=== PATIENT | female | born 1985 | race Caucasian/White ===

== ENCOUNTER 2018-11-05 09:39 | Emergency (ER) | payer SELFPAY ==
[2018-11-05 10:16] LABS: Urine Blood 2+ (NEG); Urine Glucose NEGATIVE (NEG); Urine Protein TRACE (NEG)
[2018-11-05 10:20] LABS: Absolute Monocytes 0.4 K/uL (0.1-1.3); Absolute Neutrophil 4.4 K/uL (1.8-8.0); Basophils % 0.7 % (0-1.3); Eosinophils % 1.8 % (0-4.4); Lymphocytes % 37.5 % (15.3-44.8); MPV 8.5 fL (7.6-11.3); Monocytes % 4.8 % (3.3-12.3)
[2018-11-05] MEDS ORDERED: MORPHINE 4 MG/ML SYR ONE (10:26)
[2018-11-05] MEDS ORDERED: ONDANSETRON 4 MG/2 ML VIAL ONE (10:27)
[2018-11-05 10:35] LABS: Albumin 3.6 g/dL (3.4-5.0); Bilirubin Direct 0.1 mg/dL (0-0.2); Bilirubin Total 0.4 mg/dL (0.2-1.0); Potassium 3.5 mmol/L (3.5-5.1); Protein, Total 8.1 g/dL (6.4-8.2)
[2018-11-05 10:38] LABS: Urine Bacteria <20 /HPF (<20); Urine Culture Reflex Order NOT NEEDED; Urine RBC >50 /HPF (NONE SEEN)
--- NOTE | 2018-11-05 12:34 | RAD REPORT ---
EXAM DESCRIPTION: CTAbdomen Pelvis W Contrast - 11/05/2018 12:24 pm CLINICAL HISTORY: Abdominal pain. ABD PAIN COMPARISON: No comparisons TECHNIQUE: Biphasic CT imaging of the abdomen and pelvis was performed with 100 ml non-ionic IV cont rast. All CT scans are performed using dose optimization technique as appropriate and may include automated exposure control or mA/KV adjustment according to patient size. FINDINGS: The lung bases are clear.Cholelithiasis. The liver demonstrates fatty infiltration. The spleen, pancreas, adrenal glands and kidneys are withi n normal limits. No bowel obstruction, free air, free fluid or abscess. The appendix is normal. No evidence of signi ficant lymphadenopathy. No suspicious bony findings. IMPRESSION: Cholelithiasis. Fatty liver.
--- NOTE | 2018-11-05 12:53 | ER ---
Nurse's Notes [facility] Name: Rosanne Riojas Age: 33 yrs Sex: Female : 1985 Arrival Date: 11/05/2018 Time: 09:42 Bed 7 Private MD: Diagnosis: Abdominal and pelvic pain Presentation: 11/05 09:49 Presenting complaint: Patient states: my stomach started hurting Wednesday, its all over hj my tummy that moves to the back down to my legs; Wednesday, i started having vaginal bleed like spotting and its progressive; reports nausea; denies fever and chills; pain is 10/10;. Transition of care: patient was not received from another setting of care. Onset of symptoms was November 05, 2018. Risk Assessment: Do you want to hurt yourself or someone else? Patient reports no desire to harm self or others. Initial Sepsis Screen: Does the patient meet any 2 criteria? Systolic BP < 90 mmHg. Yes Does the patient have a suspected source of infection? Yes:. Care prior to arrival: None. 09:49 Method Of Arrival: Ambulatory 09:49 Acuity: ILA 3 hj Triage Assessment: 09:52 General: Appears in no apparent distress. uncomfortable, Behavior is cooperative, hj appropriate for age, agitated, anxious. Pain: Complains of pain in back, buttocks, abdomen and pelvis. GI: Reports lower abdominal pain, upper abdominal pain, nausea. 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 - Social history:: Smoking status: Patient/guardian denies using tobacco, Patient/guardian denies using alcohol. - Ebola Screening: : Patient negative for fever greater than or equal to 101.5 degrees Fahrenheit, and additional compatible Ebola Virus Disease symptoms Patient denies exposure to infectious person Patient denies travel to an Ebola-affected area in the 21 days before illness onset. - Family history:: not pertinent. - Hospitalizations: : No recent hospitalization is reported. Screenin:53 Abuse screen: Denies threats or abuse. Denies injuries from another. Nutritional hj screening: No deficits noted. Tuberculosis screening: No symptoms or risk factors identified. Fall Risk None identified. Assessment: 09:54 GI: Bowel sounds present X 4 quads. Abd is soft. hj 10:00 General: Appears in no apparent distress. uncomfortable, Behavior is calm, cooperative, hj appropriate for age. Pain: Complains of pain in abdomen. Neuro: Level of Consciousness is awake, alert, obeys commands, Oriented to person, place, time, situation, Appropriate for age. Cardiovascular: Capillary refill < 3 seconds Patient's skin is warm and dry. Respiratory: Airway is patent Respiratory effort is even, unlabored, Respiratory pattern is regular, symmetrical. : No signs and/or symptoms were reported regarding the genitourinary system. EENT: No signs and/or symptoms were reported regarding the EENT system. Derm: No signs and/or symptoms reported regarding the dermatologic system. Musculoskeletal: No signs and/or symptoms reported regarding the musculoskeletal system. 11:00 Reassessment: Patient and/or family updated on plan of care and expected duration. Pain hj level reassessed. Patient is alert, oriented x 3, equal unlabored respirations, skin warm/dry/pink. Patient states feeling better. Patient states symptoms have improved. 12:00 Reassessment: Patient and/or family updated on plan of care and expected duration. Pain hj level reassessed. Patient is alert, oriented x 3, equal unlabored respirations, skin warm/dry/pink. Patient states feeling better. Patient states symptoms have improved. 13:13 Reassessment: Patient and/or family updated on plan of care and expected duration. Pain hj level reassessed. Patient is alert, oriented x 3, equal unlabored respirations, skin warm/dry/pink. D/C instructions given;. Vital Signs: 09:54 BP 155 / 115; Pulse 104; Resp 18; Temp 98.0(O); Pulse Ox 100% on R/A; Weight 72.57 kg; hj Height 5 ft. 2 in. (157.48 cm); Pain 10/10; 10:21 BP 129 / 65; Pulse 91; Resp 18; Temp 98.1(O); Pulse Ox 100% on R/A; hj 12:00 BP 130 / 71; Pulse 90; Resp 18; Pulse Ox 100% on R/A; hj 13:11 BP 128 / 70; Pulse 89; Resp 18; Pulse Ox 100% on R/A; hj 09:54 Body Mass Index 29.26 (72.57 kg, 157.48 cm) hj ED Course: 09:42 Patient arrived in ED. mr 09:45 Armin Mabry MD is Attending Physician. rn 09:49 Arvind Urbina RN is Primary Nurse. hj 09:51 Triage completed. hj 09:53 Arm band placed on right wrist. hj 09:55 Patient has correct armband on for positive identification. Placed in gown. Bed in low hj position. Call light in reach. Side rails up X 1. 10:05 Initial lab(s) drawn, by me, sent to lab. Inserted saline lock: 22 gauge in left hj antecubital area, using aseptic technique. Blood collected. 10:13 Basic Metabolic Panel Sent. hj 10:13 CBC with Diff Sent. hj 10:13 Hepatic Function Sent. hj 10:13 Lipase Sent. hj 10:13 Urine Microscopic Only Sent. hj 12:[address] mw3 12:23 CT completed. Patient tolerated procedure well. Patient moved back from CT. mw3 12:24 CT Abd/Pelvis - W/Contrast In Process Unspecified. EDMS 12:51 Martina Bello MD is Referral Physician. rn 13:13 No provider procedures requiring assistance completed. IV discontinued, intact, hj bleeding controlled, No redness/swelling at site. Pressure dressing applied. Administered Medications: 10:11 CANCELLED (Duplicate Order): Demerol 50 mg IVP once rn 10:20 Drug: morphine 4 mg Route: IVP; Site: left antecubital; hj 11:08 Follow up: Response: No adverse reaction; Pain is decreased hj 10:20 Drug: Zofran 4 mg Route: IVP; Site: left antecubital; hj 11:08 Follow up: Response: No adverse reaction; Nausea is decreased hj Outcome: 12:52 Discharge ordered by . rn 13:13 Discharged to home ambulatory. hj 13:13 Condition: stable 13:13 Discharge instructions given to patient, Instructed on discharge instructions, follow up and referral plans. medication usage, Demonstrated understanding of instructions, follow-up care, medications, Prescriptions given X 1. 13:13 Patient left the ED. vickie Signatures: Dispatcher [employer] Isela Cleaning Roman, MD MD rn Joaquin, Henry, RN RN hj Willis, Michelle mw3
--- NOTE | 2018-11-05 12:53 | EDPHYS ---
Physician Documentation [facility] Name: Rosanne Riojas Age: 33 yrs Sex: Female : 1985 Arrival Date: 11/05/2018 Time: 09:42 Bed 7 Private MD: ED Physician Armin Mabry HPI: 11/05 10:15 This 33 yrs old Female presents to ER via Ambulatory with complaints of rn Abdominal Pain, Back Pain. 10:16 The patient presents with abdominal pain. The patient presents with abdominal pain in rn the lower abdomen. Onset: The symptoms/episode began/occurred 5 day(s) ago. The symptoms radiate to The symptoms are described as crampy. Modifying factors: The symptoms are alleviated by nothing, the symptoms are aggravated by movement, touching the area. Severity of pain: At its worst the pain was moderate in the emergency department the pain is unchanged. The patient has experienced similar episodes in the past. The patient has not recently seen a physician. 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 - Social history:: Smoking status: Patient/guardian denies using tobacco, Patient/guardian denies using alcohol. - Ebola Screening: : Patient negative for fever greater than or equal to 101.5 degrees Fahrenheit, and additional compatible Ebola Virus Disease symptoms Patient denies exposure to infectious person Patient denies travel to an Ebola-affected area in the 21 days before illness onset. - Family history:: not pertinent. - Hospitalizations: : No recent hospitalization is reported. ROS: 10:16 Constitutional: Negative for fever, chills, and weight loss, Eyes: Negative for injury, rn pain, redness, and discharge, Neck: Negative for injury, pain, and swelling, Cardiovascular: Negative for chest pain, palpitations, and edema, Respiratory: Negative for shortness of breath, cough, wheezing, and pleuritic chest pain, Abdomen/GI: + lower abd pain, nausea, and back pain Back: + pain radiation to back MS/Extremity: Negative for injury and deformity, Skin: Negative for injury, rash, and discoloration, Neuro: Negative for headache, weakness, numbness, tingling, and seizure. 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 Eyes: Pupils equal round and reactive to light, extra-ocular motions intact. Lids and lashes normal. Conjunctiva and sclera are non-icteric and not injected. Cornea within normal limits. Periorbital areas with no swelling, redness, or edema. ENT: MMM Abdomen/GI: soft, bloated, + tender in bilateral lower quadrants and suprapubic region, no masses Skin: Warm, dry with normal turgor. Normal color with no rashes, no lesions, and no evidence of cellulitis. MS/ Extremity: Pulses equal, no cyanosis. Neurovascular intact. Full, normal range of motion. Equal circumference. Neuro: Awake and alert, GCS 15, oriented to person, place, time, and situation. Cranial nerves II-XII grossly intact. Motor strength 5/5 in all extremities. Sensory grossly intact. Cerebellar exam normal. Normal gait. Vital Signs: 09:54 BP 155 / 115; Pulse 104; Resp 18; Temp 98.0(O); Pulse Ox 100% on R/A; Weight 72.57 kg; hj Height 5 ft. 2 in. (157.48 cm); Pain 10/10; 10:21 BP 129 / 65; Pulse 91; Resp 18; Temp 98.1(O); Pulse Ox 100% on R/A; hj 12:00 BP 130 / 71; Pulse 90; Resp 18; Pulse Ox 100% on R/A; hj 13:11 BP 128 / 70; Pulse 89; Resp 18; Pulse Ox 100% on R/A; hj 09:54 Body Mass Index 29.26 (72.57 kg, 157.48 cm) MDM: 09:45 Patient medically screened. rn 12:48 Differential diagnosis: appendicitis, cholecystitis, Endometriosis, gastritis, rn gastroesophageal reflux disease, non-specific abd pain, pancreatitis, Ureterolithiasis, urinary tract infection. Data reviewed: vital signs, nurses notes, lab test result(s), radiologic studies, CT scan, and as a result, I will discharge patient. Counseling: I had a detailed discussion with the patient and/or guardian regarding: the historical points, exam findings, and any diagnostic results supporting the discharge/admit diagnosis, lab results, radiology results, the need for outpatient follow up, to return to the emergency department if symptoms worsen or persist or if there are any questions or concerns that arise at home. Response to treatment: the patient's symptoms have mildly improved after treatment, and as a result, I will discharge patient. Special discussion: Based on the patient's Hx, exam, and Dx evaluation, there is no indication for emergent surgery or inpatient Tx. It is understood by the patient/guardian that if the Sx's persist or worsen they need to return immediately for re-evaluation. I discussed with the patient/guardian in detail that at this point there is no indication for admission to the hospital. It is understood, however, that if the symptoms persist or worsen the patient needs to return immediately for re-evaluation. Based on the history and exam findings, there is no indication for further emergent testing or inpatient evaluation. I discussed with the patient/guardian the need to see the OB Gyne specialist for further evaluation of the symptoms. 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 . 11/05 09:53 Order name: Basic Metabolic Panel; Complete Time: 10:48 rn 11/05 09:53 Order name: CBC with Diff; Complete Time: 10:48 rn 11/05 09:53 Order name: Hepatic Function; Complete Time: 10:48 rn 11/05 09:53 Order name: Lipase; Complete Time: 10:48 rn 11/05 09:53 Order name: Urine Microscopic Only; Complete Time: 10: rn 11/05 10:13 Order name: Urine Dipstick--Ancillary (enter results); Complete Time: 10:48 eb 11/05 09:53 Order name: IV Saline Lock; Complete Time: 10:12 rn 11/05 09:53 Order name: Labs collected and sent; Complete Time: 10:12 rn 11/05 09:53 Order name: Urine Test (obtain specimen); Complete Time: 10:12 rn 11/05 10:11 Order name: CT Abd/Pelvis - W/Contrast; Complete Time: 12:40 rn 11/05 10:13 Order name: Urine --Ancillary (enter results); Complete Time: 10:48 eb 11/05 09:53 Order name: Urine Dipstick-Ancillary (obtain specimen); Complete Time: 10:12 rn Administered Medications: 10:11 CANCELLED (Duplicate Order): Demerol 50 mg IVP once rn 10:20 Drug: morphine 4 mg Route: IVP; Site: left antecubital; hj 11:08 Follow up: Response: No adverse reaction; Pain is decreased hj 10:20 Drug: Zofran 4 mg Route: IVP; Site: left antecubital; hj 11:08 Follow up: Response: No adverse reaction; Nausea is decreased hj Disposition: 11/05/18 12:52 Discharged to Home. Impression: Abdominal and pelvic pain. - Condition is Stable. - Discharge Instructions: Pelvic Pain, Female. - Prescriptions for Diclofenac Sodium 75 mg Oral Tablet Sustained Release - take 1 tablet by ORAL route 2 times per day; 30 tablet. - Medication Reconciliation Form, Thank You Letter, Antibiotic Education, Prescription Opioid Use form. - Follow up: Martina Bello MD; When: As needed; Reason: Recheck today's complaints, Re-evaluation by your physician. - Problem is new. - Symptoms have improved. Signatures: Dispatcher [employer] EDMS Armin Mabry MD MD rn Joaquin, Henry, RN RN Corrections: (The following items were deleted from the chart) 10:11 10:11 Demerol 50 mg IVP once ordered. rn rn 13:13 12:52 11/05/2018 12:52 Discharged to Home. Impression: Abdominal and pelvic pain. hj Condition is Stable. Forms are Medication Reconciliation Form, Thank You Letter, Antibiotic Education, Prescription Opioid Use. Follow up: Martina Bello; When: As needed; Reason: Recheck today's complaints, Re-evaluation by your physician. Problem is new. Symptoms have improved. rn
== END 2018-11-05 13:13 | disposition home or self-care (01) ==
LOC: ER 09:39
DX: R10.2 Pelvic and perineal pain (principal); Z88.0 Allergy status to penicillin; Z88.8 Allergy status to other drugs, medicaments and biological substances; Z91.040 Latex allergy status; Z91.048 Other nonmedicinal substance allergy status
CPT/HCPCS: 36415; 74177; 80048; 80076; 81003; 81015; 81025; 83690; 85025; 96374; 96375; 99284; J2405; Q9967

== ENCOUNTER 2019-09-30 16:48 | Emergency (ER) | payer SELFPAY ==
--- NOTE | 2019-09-30 19:58 | RAD REPORT ---
EXAM DESCRIPTION: US - Abdomen Exam Limited - 09/30/2019 7:45 pm CLINICAL HISTORY: ABD pain COMPARISON: Abdomen Pelvis W Contrast dated 11/05/2018 FINDINGS: A large 2 centimeter gallstone is present in the fundus of the gallbladder. This matches t he CT study. No additional stones or sludge identifiable. There is no wall thickening or pericholecys tic fluid. No common duct stone or biliary tree dilatation identified. IMPRESSION: Large stone in the fundus of the gallbladder. This is a known finding. No acute gallbladder or biliary tree finding.
[2019-09-30 20:17] LABS: Absolute Lymphocytes (CBC) 2.1 K/uL (0.7-4.9); Basophils % 0.4 % (0-1.3); Lymphocytes % 16.7 % (15.3-44.8); MPV 8.3 fL (7.6-11.3); RBC Red Blood Cell Count 4.79 M/uL (3.86-4.86)
[2019-09-30 20:35] LABS: Albumin 3.4 g/dL (3.4-5.0); Bilirubin Direct 0.1 mg/dL (0-0.2); Bilirubin Total 0.3 mg/dL (0.2-1.0); Potassium 3.9 mmol/L (3.5-5.1); Protein, Total 8.3 g/dL (6.4-8.2); Urine Blood NEGATIVE (NEG); Urine Glucose NEGATIVE (NEG); Urine Protein NEGATIVE (NEG); Urine Specific Gravity 1.025 (1.005-1.030); Urine pH 5.5 (5.0-7.0)
--- NOTE | 2019-09-30 20:48 | ER ---
Nurse's Notes [facility] Name: Rosanne Riojas Age: 34 yrs Sex: Female : 1985 Arrival Date: 09/30/2019 Time: 16:52 Bed 23 Private MD: Diagnosis: Abdominal tenderness;Vomiting;Diarrhea, unspecified;Cholelithiasis;Dental caries Presentation: 09/30 17:17 Presenting complaint: Patient states: RUQ abdominal pain, nausea, vomiting, headache, aj1 diarrhea, chills that started today. States that she was diagnosed with "gallbladder disease" in 2006. Denies fever. Transition of care: patient was not received from another setting of care. Onset of symptoms was September 2019. Risk Assessment: Do you want to hurt yourself or someone else? Patient reports no desire to harm self or others. Initial Sepsis Screen: Does the patient meet any 2 criteria? No. Patient's initial sepsis screen is negative. Does the patient have a suspected source of infection? No. Patient's initial sepsis screen is negative. Care prior to arrival: None. 17:17 Method Of Arrival: Ambulatory aj1 17:17 Acuity: ILA 3 aj1 Triage Assessment: 17:20 General: Appears in no apparent distress. comfortable, Behavior is calm, cooperative, aj1 appropriate for age. Pain: Complains of pain in right upper quadrant. Neuro: Level of Consciousness is awake, alert, obeys commands. Cardiovascular: Patient's skin is warm and dry. Respiratory: Airway is patent Respiratory effort is even, unlabored, Respiratory pattern is regular, symmetrical. GI: Reports upper abdominal pain. 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 - Coronavirus screen:: The patient has NOT traveled to [place] in the past 14 days. - Social history:: Smoking status: Patient reports the use of cigarette tobacco products, smokes one-half pack cigarettes per day. - Family history:: not pertinent. - Ebola Screening: : Patient denies travel to an Ebola-affected area in the 21 days before illness onset. Screenin:00 Abuse screen: Denies threats or abuse. Nutritional screening: No deficits noted. vc Tuberculosis screening: No symptoms or risk factors identified. Fall Risk None identified. Assessment: 19:00 General: Appears in no apparent distress. uncomfortable, Behavior is calm, cooperative, vc appropriate for age. Pain: Denies pain. Pain: Complains of pain in abdomen and right upper quadrant. Neuro: Level of Consciousness is awake, alert, obeys commands, Oriented to person, place, time, situation. Cardiovascular: Capillary refill Patient's skin is warm and dry. Respiratory: Respiratory effort is even, unlabored, Respiratory pattern is regular, symmetrical. GI: Abdomen is round Bowel sounds present X 4 quads. : No signs and/or symptoms were reported regarding the genitourinary system. EENT: No signs and/or symptoms were reported regarding the EENT system. Derm: Skin is intact. Musculoskeletal: Circulation, motion, and sensation intact. Range of motion: intact in all extremities. 20:00 Reassessment: Patient and/or family updated on plan of care and expected duration. Pain vc level reassessed. Patient is alert, oriented x 3, equal unlabored respirations, skin warm/dry/pink. 21:00 Reassessment: Patient and/or family updated on plan of care and expected duration. Pain vc level reassessed. Patient is alert, oriented x 3, equal unlabored respirations, skin warm/dry/pink. Patient states feeling better. Vital Signs: 17:20 BP 147 / 90; Pulse 102; Resp 20; Temp 97.6; Pulse Ox 100% on R/A; Height 5 ft. 2 in. aj1 (157.48 cm); Pain 5/10; 19:00 BP 148 / 88; Pulse 100; Resp 20; Pulse Ox 100% on R/A; vc 20:00 BP 153 / 85; Pulse 95; Resp 18; Pulse Ox 100% on R/A; vc 21:00 BP 145 / 86; Pulse 95; Resp 18; Pulse Ox 100% on R/A; vc ED Course: 16:52 Patient arrived in ED. as 17:20 Triage completed. aj1 17:20 Arm band placed on Patient placed in waiting room, Patient notified of wait time. aj1 19:05 Rah Ervin MD is Attending Physician. gregory 19:42 Elba Ponce, RN is Primary Nurse. vc 19:44 Ultrasound completed. Patient tolerated well. Notified ED Physician . sg3 20:47 Gualberto Bosch MD is Referral Physician. gregory 21:10 Patient has correct armband on for positive identification. Bed in low position. Call vc light in reach. 21:10 No provider procedures requiring assistance completed. IV discontinued, intact, vc bleeding controlled, No redness/swelling at site. Pressure dressing applied. Administered Medications: 21:10 Drug: Zofran 4 mg Route: IVP; Site: right antecubital; vc 21:10 Follow up: Response: No adverse reaction vc 21:10 Drug: TORadol 30 mg Route: IVP; Site: right antecubital; vc 21:10 Follow up: Response: Medication administered at discharge. vc 10/01 00:25 Not Given (Patient Refused): NS 0.9% 1000 ml IV at 1 bolus Per protocol; 1000 mL bolus vc 00:25 Not Given (Other Intervention Used): morphine 4 mg IVP once; RASS on ADMIN: Combtv4, vc Very Agttd3, Agttd2, Rstlss1, AlertClm0, Drwsy-1, Lt Sdtn-2, Mod Sdtn-3, Dp Sdtn-4, UnArsble-5 Outcome: 09/30 20:47 Discharge ordered by . gregory 21:15 Patient left the ED. vc 21:15 Discharged to home ambulatory, with significant other. vc 21:15 Condition: good 21:15 Discharge instructions given to patient, significant other, Instructed on discharge instructions, follow up and referral plans. medication usage, Demonstrated understanding of instructions, follow-up care, medications, Prescriptions given X 3. Signatures: Sophia Araya, JUAN RN aj1 Rah Ervin MD MD cha Martinez, Amelia as Godinez, Sarah sg3 Roya Santoyo lt1 Elba Ponce, RN RN vc Corrections: (The following items were deleted from the chart) 10/01 01:03 02 21:34 Patient left the ED. lt1 vc
--- NOTE | 2019-09-30 20:48 | EDPHYS ---
Physician Documentation [facility] Name: Rosanne Riojas Age: 34 yrs Sex: Female : 1985 Arrival Date: 09/30/2019 Time: 16:52 Bed 23 Private MD: ED Physician Rah Ervin HPI: 09/30 19:45 This 34 yrs old Female presents to ER via Ambulatory with complaints of gregory Nausea/Vomiting/Diarrhea. 19:45 The patient presents to the emergency department with nausea, vomiting, abdominal pain, gregory of the right upper quadrant. Onset: The symptoms/episode began/occurred 1 day(s) ago. Possible causes: gallbladder disease. The symptoms are aggravated by food , The symptoms are alleviated by nothing. Associated signs and symptoms: The patient has no apparent associated signs or symptoms. Severity of symptoms: At their worst the symptoms were mild moderate in the emergency department the symptoms are unchanged. The patient has experienced similar episodes in the past. RADIO RIGGER: 17:20 LMP N/A - Irregular menses aj1 Historical: - Allergies: 17:20 Latex, Natural Rubber; aj1 17:20 Macrobid; aj1 17:20 meperidine HCl; aj1 17:20 PENICILLINS; aj1 - Home Meds: 17:20 None [Active]; aj1 - PMHx: 17:20 "gallbladder disease"; aj1 - Immunization history:: Flu vaccine is not up to date. - Coronavirus screen:: The patient has NOT traveled to [place] in the past 14 days. - Social history:: Smoking status: Patient reports the use of cigarette tobacco products, smokes one-half pack cigarettes per day. - Family history:: not pertinent. - Ebola Screening: : Patient denies travel to an Ebola-affected area in the 21 days before illness onset. ROS: 19:45 Constitutional: Negative for fever, chills, and weight loss, Eyes: Negative for injury, gregory pain, redness, and discharge, ENT: Negative for injury, pain, and discharge, Neck: Negative for injury, pain, and swelling, Cardiovascular: Negative for chest pain, palpitations, and edema, Respiratory: Negative for shortness of breath, cough, wheezing, and pleuritic chest pain, Back: Negative for injury and pain, : Negative for injury, bleeding, discharge, and swelling, MS/Extremity: Negative for injury and deformity, Skin: Negative for injury, rash, and discoloration, Neuro: Negative for headache, weakness, numbness, tingling, and seizure, Psych: Negative for depression, anxiety, suicide ideation, homicidal ideation, and hallucinations, Allergy/Immunology: Negative for hives, rash, and allergies, Endocrine: Negative for neck swelling, polydipsia, polyuria, polyphagia, and marked weight changes, Hematologic/Lymphatic: Negative for swollen nodes, abnormal bleeding, and unusual bruising. 19:45 Abdomen/GI: Positive for abdominal pain, nausea and vomiting, diarrhea, of the right upper quadrant. Exam: 19:45 Constitutional: This is a well developed, well nourished patient who is awake, alert, gregory and in no acute distress. Head/Face: Normocephalic, atraumatic. Eyes: Pupils equal round and reactive to light, extra-ocular motions intact. Lids and lashes normal. Conjunctiva and sclera are non-icteric and not injected. Cornea within normal limits. Periorbital areas with no swelling, redness, or edema. ENT: Nares patent. No nasal discharge, no septal abnormalities noted. Tympanic membranes are normal and external auditory canals are clear. Oropharynx with no redness, swelling, or masses, exudates, or evidence of obstruction, uvula midline. Mucous membranes moist. Neck: Trachea midline, no thyromegaly or masses palpated, and no cervical lymphadenopathy. Supple, full range of motion without nuchal rigidity, or vertebral point tenderness. No Meningismus. Chest/axilla: Normal chest wall appearance and motion. Nontender with no deformity. No lesions are appreciated. Cardiovascular: Regular rate and rhythm with a normal S1 and S2. No gallops, murmurs, or rubs. Normal PMI, no JVD. No pulse deficits. Respiratory: Lungs have equal breath sounds bilaterally, clear to auscultation and percussion. No rales, rhonchi or wheezes noted. No increased work of breathing, no retractions or nasal flaring. Back: No spinal tenderness. No costovertebral tenderness. Full range of motion. Skin: Warm, dry with normal turgor. Normal color with no rashes, no lesions, and no evidence of cellulitis. MS/ Extremity: Pulses equal, no cyanosis. Neurovascular intact. Full, normal range of motion. Neuro: Awake and alert, GCS 15, oriented to person, place, time, and situation. Cranial nerves II-XII grossly intact. Motor strength 5/5 in all extremities. Sensory grossly intact. Cerebellar exam normal. Normal gait. Psych: Awake, alert, with orientation to person, place and time. Behavior, mood, and affect are within normal limits. 19:45 Abdomen/GI: Inspection: distension, Bowel sounds: normal, Palpation: mild abdominal tenderness, in the right upper quadrant. Vital Signs: 17:20 BP 147 / 90; Pulse 102; Resp 20; Temp 97.6; Pulse Ox 100% on R/A; Height 5 ft. 2 in. aj1 (157.48 cm); Pain 5/10; 19:00 BP 148 / 88; Pulse 100; Resp 20; Pulse Ox 100% on R/A; vc 20:00 BP 153 / 85; Pulse 95; Resp 18; Pulse Ox 100% on R/A; vc 21:00 BP 145 / 86; Pulse 95; Resp 18; Pulse Ox 100% on R/A; vc MDM: 19:05 Patient medically screened. [facility] 19:47 Data reviewed: vital signs, nurses notes, lab test result(s), radiologic studies, [facility] ultrasound. 09/30 17:31 Order name: Urine Culture [facility] 09/30 17:31 Order name: Urine Microscopic Only [facility] 09/30 19:44 Order name: Basic Metabolic Panel [facility] 09/30 19:44 Order name: CBC with Diff [facility] 09/30 19:44 Order name: Creatinine for Radiology [facility] 09/30 19:44 Order name: Hepatic Function [facility] 09/30 19:44 Order name: Lipase [facility] 09/30 20:02 Order name: Urine Dipstick--Ancillary (enter results) 09/30 20:02 Order name: Test Urine - POC 09/30 20:22 Order name: CBC with Automated Diff; Complete Time: 20:42 EDCT 09/30 20:41 Order name: Basic Metabolic Panel; Complete Time: 20:42 EDCT 09/30 20:41 Order name: Liver (Hepatic) Function; Complete Time: 20:42 EDCT 09/30 20:41 Order name: Lipase; Complete Time: 20:42 EDCT 09/30 20:41 Order name: Creatinine (Radiology Only); Complete Time: 20:42 EDCT 09/30 17:31 Order name: Urine Test (obtain specimen); Complete Time: 01:12 [facility] 09/30 17:31 Order name: Urine Dipstick-Ancillary (obtain specimen); Complete Time: 01:12 [facility] 09/30 17:59 Order name: US Abdomen Limited [facility] 09/30 19:44 Order name: IV Saline Lock; Complete Time: 01:11 [facility] 09/30 19:44 Order name: Labs collected and sent; Complete Time: 01:11 [facility] 09/30 20:41 Order name: Urine --Ancillary; Complete Time: 20:42 [facility] 09/30 20:41 Order name: Urine Dipstick-Ancillary; Complete Time: 20:42 [facility] 09/30 21:12 Order name: EDCT Administered Medications: 21:10 Drug: Zofran 4 mg Route: IVP; Site: right antecubital; vc 21:10 Follow up: Response: No adverse reaction vc 21:10 Drug: TORadol 30 mg Route: IVP; Site: right antecubital; vc 21:10 Follow up: Response: Medication administered at discharge. vc 10/01 00:25 Not Given (Patient Refused): NS 0.9% 1000 ml IV at 1 bolus Per protocol; 1000 mL bolus vc 00:25 Not Given (Other Intervention Used): morphine 4 mg IVP once; RASS on ADMIN: Combtv4, vc Very Agttd3, Agttd2, Rstlss1, AlertClm0, Drwsy-1, Lt Sdtn-2, Mod Sdtn-3, Dp Sdtn-4, UnArsble-5 Disposition: 09/30/19 20:47 Discharged to Home. Impression: Abdominal tenderness, Vomiting, Diarrhea, unspecified, Cholelithiasis, Dental caries. - Condition is Stable. - Discharge Instructions: Abdominal Pain, Adult, Food Choices to Help Relieve Diarrhea, Adult, Dental Caries, Adult, Diarrhea, Adult, Cholelithiasis, Cholelithiasis, Xqgc-gd-Tmuf, Nausea and Vomiting, Adult, Ecmo-ic-Xbge, Abdominal Pain, Adult, Dgag-ea-Urds, Diarrhea, Adult, Yhaw-xk-Olxh, Dental Caries, Tuxe-eb-Fpxl. - Prescriptions for Bentyl 20 mg Oral Tablet - take 1 tablet by ORAL route every 6 hours As needed; 20 tablet. Pepcid 20 mg Oral Tablet - take 1 tablet by ORAL route every 12 hours for 10 days; 20 tablet. Keflex 500 mg Oral Capsule - take 1 capsule by ORAL route every 6 hours for 10 days; 28 capsule. - Medication Reconciliation Form, Thank You Letter, Antibiotic Education, Prescription Opioid Use form. - Follow up: Private Physician; When: 2 - 3 days; Reason: Recheck today's complaints, Continuance of care, Re-evaluation by your physician. Follow up: Dr. Gualberto Bosch; When: 2 - 3 days; Reason: Recheck today's complaints, Continuance of care, Re-evaluation by your physician. - Problem is new. - Symptoms have improved. Signatures: Dispatcher [employer] EDSophia De Santiago RN RN aj1 Rah Ervin MD MD cha Therrien, Shelly, VENDING MACHINE SERVICER-C VENDING MACHINE SERVICER-Csnw Roya Santoyo lt1 Elba Ponce RN RN vc Corrections: (The following items were deleted from the chart) 09/30 21:34 20:47 09/30/2019 20:47 Discharged to Home. Impression: Abdominal tenderness; Vomiting; lt1 Diarrhea, unspecified; Cholelithiasis; Dental caries. Condition is Stable. Discharge Instructions: Abdominal Pain, Adult, Food Choices to Help Relieve Diarrhea, Adult, Diarrhea, Adult, Cholelithiasis, Cholelithiasis, Fgdf-vj-Dhmo, Nausea and Vomiting, Adult, Yyom-hs-Bnof, Abdominal Pain, Adult, Lfhj-dy-Wkgs, Diarrhea, Adult, Xgev-bc-Okvz. Prescriptions for Bentyl 20 mg Oral Tablet - take 1 tablet by ORAL route every 6 hours As needed; 20 tablet, Pepcid 20 mg Oral Tablet - take 1 tablet by ORAL route every 12 hours for 10 days; 20 tablet. and Forms are Medication Reconciliation Form, Thank You Letter, Antibiotic Education, Prescription Opioid Use. Follow up: Private Physician; When: 2 - 3 days; Reason: Recheck today's complaints, Continuance of care, Re-evaluation by your physician. Follow up: Dr. Gualberto Bosch; When: 2 - 3 days; Reason: Recheck today's complaints, Continuance of care, Re-evaluation by your physician. Problem is new. Symptoms have improved. gregory
[2019-09-30] MEDS ORDERED: ONDANSETRON 4 MG/2 ML VIAL ONE (21:13)
[2019-09-30] MEDS ORDERED: KETOROLAC 30 MG/ML INJ ONE (21:13)
[2019-09-30 21:58] VITALS: BP 147/90; TEMP 97.6; O2SAT 100
--- NOTE | 2019-10-02 08:55 | EKG ---
Test Date: 2019-09-30 Test Time: 20:48:02 Frit Coater: NIRUT MEASUREMENT RESULTS: Intervals: Rate: 60 FL: 110 QRSD: 64 QT: 486 QTc: 486 [place]: P: 59 FL: 110 QRS: 61 T: 57 INTERPRETIVE STATEMENTS: Sinus rhythm with short FL Prolonged QT Abnormal ECG No previous ECG available for comparison Electronically Signed On 10-02-19 08:55:09 FABRIC MACHINE OPERATOR by Koko Mcleod
== END 2019-09-30 21:34 | disposition home or self-care (01) ==
LOC: ER 16:48
DX: R19.7 Diarrhea, unspecified (principal); K80.20 Calculus of gallbladder without cholecystitis without obstruction; K02.9 Dental caries, unspecified; R10.819 Abdominal tenderness, unspecified site; Z88.0 Allergy status to penicillin; Z91.040 Latex allergy status; Z88.1 Allergy status to other antibiotic agents; F17.210 Nicotine dependence, cigarettes, uncomplicated
CPT/HCPCS: 36415; 76705; 80048; 80076; 81003; 81025; 83690; 85025; 93005; 96374; 96375; 99283; J2405

== ENCOUNTER 2021-03-21 08:07 | Emergency (ER) | payer SELFPAY ==
--- NOTE | 2021-03-21 09:58 | RAD REPORT ---
EXAM DESCRIPTION: US - Abdomen Exam Limited - 03/21/2021 9:36 am CLINICAL HISTORY: RUQ pain COMPARISON: Abdomen Exam Limited dated 09/30/2019 FINDINGS: The gallbladder demonstrates a prominent shadowing gallstone. No pericholecystic fluid or gallbladder wall thickening. The common bile duct is normal measuring 3 mm. The liver demonstrates no findings of intrahepatic biliary dilatation. IMPRESSION: Cholelithiasis.
[2021-03-21 10:32] LABS: Absolute Lymphocytes (CBC) 2.2 K/uL (0.7-4.9); Basophils % 0.6 % (0-1.3); Hematocrit 33.1 % (36.0-45.0); Lymphocytes % 23.7 % (15.3-44.8); MPV 7.7 fL (7.6-11.3); RBC Red Blood Cell Count 4.21 M/uL (3.86-4.86)
[2021-03-21 10:40] LABS: ALT/SGPT 35 U/L (12-78); AST/SGOT 19 U/L (15-37); Albumin 3.4 g/dL (3.4-5.0); Alkaline Phosphatase 125 U/L (45-117); BUN Blood Urea Nitrogen 9 mg/dL (7-18); Bicarbonate 29 mmol/L (21-32); Bilirubin Direct < 0.1 mg/dL (0-0.2); Bilirubin Total 0.2 mg/dL (0.2-1.0); Glucose Level 101 mg/dL (74-106); Lipase 147 U/L (73-393); Potassium 3.9 mmol/L (3.5-5.1); Protein, Total 7.6 g/dL (6.4-8.2); Sodium Level 140 mmol/L (136-145)
[2021-03-21] MEDS ORDERED: ONDANSETRON 4 MG/2 ML VIAL ONE (12:10)
[2021-03-21] MEDS ORDERED: MORPHINE 2 MG/ML SYR ONE (12:10)
--- NOTE | 2021-03-21 12:29 | EDPHYS ---
Physician Documentation [facility] Name: Rosanne Riojas Age: 35 yrs Sex: Female : 1985 Arrival Date: 03/21/2021 Time: 08:12 Bed 30 Private MD: ED Physician Juanpablo Henriquez HPI: 03/21 10:07 This 35 yrs old Female presents to ER via Ambulatory with complaints of pm1 Abdominal Pain. 10:07 The patient presents with abdominal pain in the epigastric area. Onset: The pm1 symptoms/episode began/occurred this morning. The symptoms do not radiate. Associated signs and symptoms: Pertinent positives: nausea, Pertinent negatives: chest pain, diarrhea, shortness of breath, vomiting. The symptoms are described as achy. Modifying factors: The symptoms are alleviated by nothing, the symptoms are aggravated by nothing. Severity of pain: in the emergency department the pain is unchanged. The patient has experienced similar episodes in the past, a few times, today's symptoms are similar, to previous gallbladder issues. The patient has not recently seen a physician. Patient consumed chicken quesadillas last night. Historical: - Allergies: 08:58 Latex, Natural Rubber; ss 08:58 Macrobid; ss 08:58 meperidine HCl; ss 08:58 PENICILLINS; ss - Home Meds: 08:58 None [Active]; ss - PMHx: 08:58 "gallbladder disease"; "form of autism"; Gastric reflux; ss - PSHx: 08:58 section; ss - Immunization history:: Adult Immunizations unknown, Client reports having NOT received the Covid vaccine. - Social history:: Smoking status: Patient reports the use of cigarette tobacco products, smokes one pack cigarettes per day. ROS: 10:07 Constitutional: Negative for fever, chills, and weight loss, Cardiovascular: Negative pm1 for chest pain, palpitations, and edema, Respiratory: Negative for shortness of breath, cough, wheezing, and pleuritic chest pain. 10:07 Back: Negative for injury and pain, MS/Extremity: Negative for injury and deformity, Skin: Negative for injury, rash, and discoloration, Neuro: Negative for headache, weakness, numbness, tingling, and seizure. 10:07 Abdomen/GI: Positive for abdominal pain, nausea, of the right upper quadrant, Negative for vomiting, diarrhea, constipation. 10:07 All other systems are negative. Exam: 10:07 Constitutional: This is a well developed, well nourished patient who is awake, alert, pm1 and in no acute distress. Head/Face: Normocephalic, atraumatic. 10:07 Back: No spinal tenderness. No costovertebral tenderness. Full range of motion. Skin: Warm, dry with normal turgor. Normal color with no rashes, no lesions, and no evidence of cellulitis. MS/ Extremity: Pulses equal, no cyanosis. Neurovascular intact. Full, normal range of motion. 10:07 Cardiovascular: Exam negative for acute changes, Rate: normal, Rhythm: regular, Pulses: no pulse deficits are appreciated. 10:07 Respiratory: Exam negative for acute changes, respiratory distress, shortness of breath. 10:07 Abdomen/GI: Inspection: abdomen appears normal, Palpation: soft, in all quadrants, mild abdominal tenderness, in the right upper quadrant. 10:07 Neuro: Exam negative for acute changes, Orientation: is normal, Mentation: is normal, Motor: is normal, moves all fours. Vital Signs: 08:58 BP 136 / 95; Pulse 87; Resp 16; Temp 97.4(TE); Pulse Ox 98% on R/A; Weight 72.12 kg; ss Height 5 ft. 2 in. (157.48 cm); Pain 7/10; 10:13 BP 152 / 88; Pulse 78; Resp 16; Temp 97.4(T); Pulse Ox 100% on R/A; Pain 5/10; lm7 08:58 Body Mass Index 29.08 (72.12 kg, 157.48 cm) ss MDM: 10:07 Patient medically screened. pm1 10:07 ED course: Patient requested a smaller dose of pain medication due to apprehension of pm1 narcotics. Therefore we will give the patient 2 mg morphine with Zofran. 10:49 Data reviewed: vital signs. Data interpreted: Pulse oximetry: on room air is 100 %. pm1 Interpretation: normal. 11:50 Counseling: I had a detailed discussion with the patient and/or guardian regarding: the pm1 historical points, exam findings, and any diagnostic results supporting the discharge/admit diagnosis, lab results, radiology results, the need for outpatient follow up, a general surgeon, Patient reports that she used to be on a low-fat diet. Last night patient ate chicken quesadillas for dinner prior to onset of epigastric pain. 12:16 ED course: Patient informed the nurse that she will not provide us a urine sample. pm1 03/21 09:12 Order name: Basic Metabolic Panel; Complete Time: 10:49 pm1 03/21 09:12 Order name: CBC with Diff; Complete Time: 10:49 pm1 03/21 09:12 Order name: Hepatic Function; Complete Time: 10:49 pm1 03/21 09:12 Order name: Lipase; Complete Time: 10:49 pm1 03/21 09:12 Order name: US Abdomen Limited; Complete Time: 10:01 pm1 03/21 09:12 Order name: IV Saline Lock; Complete Time: 10:18 pm1 03/21 09:12 Order name: Labs collected and sent; Complete Time: 10:18 pm1 03/21 09:12 Order name: NPO; Complete Time: 10:03 pm1 Administered Medications: 11:50 Drug: Zofran (Ondansetron) 4 mg Route: IVP; Site: right antecubital; ss 11:50 Drug: morphine 2 mg Route: IVP; Site: right antecubital; ss Disposition Summary: 03/21/21 12:28 Discharge Ordered Location: Home pm1 Problem: new pm1 Symptoms: have improved pm1 Condition: Stable pm1 Diagnosis - Cholelithiasis pm1 Followup: pm1 - With: Emergency Department - When: As needed - Reason: Worsening of condition Followup: pm1 - With: Private Physician - When: 2 - 3 days - Reason: Recheck today's complaints, Continuance of care, Re-evaluation by your physician Discharge Instructions: - Discharge Summary Sheet pm1 - Cholelithiasis pm1 Forms: - Work release form ss - Medication Reconciliation Form pm1 - Thank You Letter pm1 - Antibiotic Education pm1 - Prescription Opioid Use pm1 Prescriptions: - ondansetron 4 mg Oral tablet,disintegrating - take 1 tablet by ORAL route every 8 hours As needed; 12 tablet; Refills: 0, pm1 Product Selection Permitted - dicyclomine 20 mg Oral Tablet - take 1 tablet by ORAL route every 6 hours As needed; 20 tablet; Refills: 0, pm1 Product Selection Permitted Addendum: 03/24/2021 07:06 Co-signature as Attending Physician, Juanpablo Henriquez MD I agree with the assessment and k dr plan of care. Signatures: Dispatcher [employer] Juanpablo Irvin MD MD [facility] Namrata Banegas, JUAN RN ss John Sanchez, NICOLE ENTERPRISE INTEGRATION ARCHITECT pm1
--- NOTE | 2021-03-21 12:29 | ER ---
Nurse's Notes [facility] Name: Rosanne Riojas Age: 35 yrs Sex: Female : 1985 Arrival Date: 03/21/2021 Time: 08:12 Bed 30 Private MD: Diagnosis: Cholelithiasis Presentation: 03/21 08:57 Chief complaint: Patient states: RUQ pain that began at 0400 this morning. HX of gall ss bladder disease. Coronavirus screen: Client denies travel out of the [place] in the last 14 days. Ebola Screen: Patient denies exposure to infectious person. Patient denies travel to an Ebola-affected area in the 21 days before illness onset. Initial Sepsis Screen: Does the patient meet any 2 criteria? No. Patient's initial sepsis screen is negative. Does the patient have a suspected source of infection? No. Patient's initial sepsis screen is negative. Risk Assessment: Do you want to hurt yourself or someone else? Patient reports no desire to harm self or others. Onset of symptoms was March 21, 2021. 08:57 Method Of Arrival: Ambulatory 08:57 Acuity: ILA 3 ss Triage Assessment: 10:08 General: Appears uncomfortable, Behavior is cooperative. Pain: Complains of pain in lm7 RUQ, beneath R rib Pain radiates to back Pain currently is 5 out of 10 on a pain scale. at worst was 10 out of 10 on a pain scale. Quality of pain is described as aching, crampy, Pain began suddenly, today at 0400. GI: Abdomen is round obese, Reports upper abdominal pain, nausea, vomiting, reports able to tolerate small amount of fluids. Derm: Skin is intact, is healthy with good turgor, Skin is dry, Skin is pink, warm \\T\\ dry. Skin temperature is warm. Musculoskeletal: No deficits noted. Historical: - Allergies: 08:58 Latex, Natural Rubber; ss 08:58 Macrobid; ss 08:58 meperidine HCl; ss 08:58 PENICILLINS; ss - Home Meds: 08:58 None [Active]; ss - PMHx: 08:58 "gallbladder disease"; "form of autism"; Gastric reflux; ss - PSHx: 08:58 section; ss - Immunization history:: Adult Immunizations unknown, Client reports having NOT received the Covid vaccine. - Social history:: Smoking status: Patient reports the use of cigarette tobacco products, smokes one pack cigarettes per day. Screenin:51 Abuse screen: Denies threats or abuse. Denies injuries from another. Nutritional ss screening: No deficits noted. Tuberculosis screening: Never had TB. Fall Risk None identified. Assessment: 11:51 Reassessment: Patient appears in no apparent distress at this time. Patient and/or ss family updated on plan of care and expected duration. Pain level reassessed. Patient is alert, oriented x 3, equal unlabored respirations, skin warm/dry/pink. 12:22 Reassessment: Patient appears in no apparent distress at this time. Patient and/or ss family updated on plan of care and expected duration. Pain level reassessed. Patient is alert, oriented x 3, equal unlabored respirations, skin warm/dry/pink. awaiting discharge paperwork. Vital Signs: 08:58 BP 136 / 95; Pulse 87; Resp 16; Temp 97.4(TE); Pulse Ox 98% on R/A; Weight 72.12 kg; ss Height 5 ft. 2 in. (157.48 cm); Pain 7/10; 10:13 BP 152 / 88; Pulse 78; Resp 16; Temp 97.4(T); Pulse Ox 100% on R/A; Pain 5/10; lm7 08:58 Body Mass Index 29.08 (72.12 kg, 157.48 cm) ED Course: 08:12 Patient arrived in ED. ds1 08:58 Triage completed. ss 08:58 Arm band placed on right wrist. ss 09:12 Juanpablo Henriquez MD is Attending Physician. kdr 09:19 John Sanchez NP is PHCP. pm1 09:36 US Abdomen Limited In Process Unspecified. EDMS 10:18 Inserted saline lock: 20 gauge in right antecubital area, using aseptic technique. mt Blood collected. 11:45 Namrata Banegas, JUAN is Primary Nurse. ss 11:51 Patient has correct armband on for positive identification. Bed in low position. Call ss light in reach. 12:40 No provider procedures requiring assistance completed. IV discontinued, intact, ss bleeding controlled, No redness/swelling at site. Pressure dressing applied. Administered Medications: 11:50 Drug: Zofran (Ondansetron) 4 mg Route: IVP; Site: right antecubital; 11:50 Drug: morphine 2 mg Route: IVP; Site: right antecubital; Outcome: 12:28 Discharge ordered by . pm1 12:40 Discharged to home ambulatory. ss 12:40 Condition: good 12:40 Discharge instructions given to patient, Instructed on discharge instructions, follow up and referral plans. Demonstrated understanding of instructions, follow-up care, medications, Prescriptions given X 2. 12:41 Patient left the ED. ss Signatures: Dispatcher [employer] EDMS Juanpablo Henriquez MD MD kdr Sanford, Demi ds1 Namrata Banegas RN RN Rhianna Fournier lm7 John Sanchez, NICOLE COMMUNITY SERVICE TECHNICIAN pm1 Apurva Morris mt
[2021-03-21 12:47] VITALS: TEMP 97.4
[2021-03-21 12:51] VITALS: BP 152/88; O2SAT 100
== END 2021-03-21 12:41 | disposition home or self-care (01) ==
LOC: ER 08:07
DX: K80.20 Calculus of gallbladder without cholecystitis without obstruction (principal); F17.210 Nicotine dependence, cigarettes, uncomplicated; Z88.0 Allergy status to penicillin; Z88.1 Allergy status to other antibiotic agents; Z88.8 Allergy status to other drugs, medicaments and biological substances; Z91.040 Latex allergy status; Z91.048 Other nonmedicinal substance allergy status
CPT/HCPCS: 36415; 76705; 80048; 80076; 83690; 85025; 96374; 96375; 99284; J2270; J2405

== ENCOUNTER 2022-04-24 17:14 | Emergency (ER) | payer SELFPAY ==
--- OUTSIDE RECORDS SUMMARY | 2022-04-24 17:19 | XMS REPORT | Continuity of Care Document ---
:1985 Author Organization [facility] t Address [address] [place] [address] Care Team Providers Name Role Phone Way Mae WITT Primary Care Physician [phone] Problems This patient has no known problems. Allergies, Adverse Reactions, Alerts Allergy Allergy Status Severity Reaction(s) Onset Inactive Treating Comm ents Source Name Type Date Date Clinician Macrobid Propensi Active - Oral ty to 7-14 adverse 00:00: reaction 00 to drug tomatoes Propensi Active 2020-08 (Not ty to 2-02 Checked) adverse 00:00: reaction 00 to drug Medications Ordered Filled Start Stop Current Ordering Indication Dosage Frequency Signature Comments Components Source Medication Medication Date Date Medication? Clinician (SIG) Name Name Dose 2021-0 No Unknown 03-10 00:00: 00 TAKE 1 2021-0 No 5 TABLET 8-02 DAILY. 00:00: 00 TAKE 1 2021-0 No 25 TABLET 8-02 DAILY. 00:00: 00 Dose 2021-0 No Unknown 8 00:00: 00 TAKE 1 2021-0 No 5 TABLET 8-02 DAILY. 00:00: 00 TAKE 1 2021-0 No 25 TABLET 8-02 DAILY. 00:00: 00 TAKE 1 2021-0 No 25 TABLET 7-14 DAILY. 00:00: 00 TAKE 1 2021-0 No 25 TABLET 7-14 DAILY. 00:00: 00 TAKE 1 2021-0 No 25 TABLET 7-14 DAILY. 00:00: 00 TAKE 1 2021-0 No 25 TABLET 7-14 DAILY. 00:00: 00 bupropion 2020-08 No 1mg HCl 75 mg 2-02 tablet 00:00: 00 aripiprazol 2020-08 No 5mg e 10 mg 2-02 disintegrat 00:00: ing tablet 00 bupropion 2020-08 No 1mg HCl 75 mg 2-02 tablet 00:00: 00 aripiprazol 2020-08 No 5mg e 10 mg 2-02 disintegrat 00:00: ing tablet 00 bupropion 2020-08 No 1mg HCl 75 mg 2-02 tablet 00:00: 00 aripiprazol 2020-08 No 5mg e 10 mg 2-02 disintegrat 00:00: ing tablet 00 bupropion 2020-08 No 1mg HCl 75 mg 2-02 tablet 00:00: 00 aripiprazol 2020-08 No 5mg e 10 mg 2-02 disintegrat 00:00: ing tablet 00 Vital Signs Vital Name Observation Time Observation Value Comments Source BP Systolic 2022-03-24 14:16:00 150 mm[Hg] BP Diastolic 2022-03-24 14:16:00 98 mm[Hg] Weight Measured 2022-03-24 14:16:00 193.60 pounds Height Measured 2022-03-24 14:16:00 62.00 inches Body Temperature 2022-03-24 14:16:00 98.30 degrees Heart Rate 2022-03-24 14:16:00 93.00 /min Respiratory Rate 2022-03-24 14:16:00 BP Systolic 2022-03-10 15:18:00 131 mm[Hg] BP Diastolic 2022-03-10 15:18:00 95 mm[Hg] Weight Measured 2022-03-10 15:18:00 193.20 pounds Height Measured 2022-03-10 15:18:00 62.00 inches Body Temperature 2022-03-10 15:18:00 Heart Rate 2022-03-10 15:18:00 95.00 /min Respiratory Rate 2022-03-10 15:18:00 Respiratory Rate 2022-03-10 14:06:00 BP Systolic 2022-03-10 14:06:00 131 mm[Hg] BP Diastolic 2022-03-10 14:06:00 95 mm[Hg] Weight Measured 2022-03-10 14:06:00 193.20 pounds Height Measured 2022-03-10 14:06:00 62.00 inches Body Temperature 2022-03-10 14:06:00 Heart Rate 2022-03-10 14:06:00 95.00 /min BP Systolic 2022-02-23 14:34:00 BP Diastolic 2022-02-23 14:34:00 Weight Measured 2022-02-23 14:34:00 192.00 pounds Height Measured 2022-02-23 14:34:00 62.00 inches Body Temperature 2022-02-23 14:34:00 97.60 degrees Heart Rate 2022-02-23 14:34:00 119.00 /min Respiratory Rate 2022-02-23 14:34:00 BP Systolic 2022-02-19 13:53:00 135 mm[Hg] BP Diastolic 2022-02-19 13:53:00 90 mm[Hg] Weight Measured 2022-02-19 13:53:00 193.40 pounds Height Measured 2022-02-19 13:53:00 62.00 inches Body Temperature 2022-02-19 13:53:00 98.60 degrees Heart Rate 2022-02-19 13:53:00 105.00 /min Respiratory Rate 2022-02-19 13:53:00 17.00 /min BP Systolic 2021-07-10 09:34:00 125 mm[Hg] BP Diastolic 2021-07-10 09:34:00 76 mm[Hg] Weight Measured 2021-07-10 09:34:00 197.50 pounds Height Measured 2021-07-10 09:34:00 62.00 inches Body Temperature 2021-07-10 09:34:00 98.30 degrees Heart Rate 2021-07-10 09:34:00 92.00 /min Respiratory Rate 2021-07-10 09:34:00 Procedures This patient has no known procedures. Plan of Care Planned Activity Planned Date Details Comments Source Goal Plan of Care Note [code = 69538-1] Goal Plan of Care Note [code = 98902-8] Goal Plan of Care Note [code = 41227-6] Goal Plan of Care Note [code = 57738-8] Goal Plan of Care Note [code = 04377-3] Goal Plan of Care Note [code = 63987-1] Goal Plan of Care Note [code = 28448-5] Goal Plan of Care Note [code = 29476-0] Goal Plan of Care Note [code = 68790-4] Goal Plan of Care Note [code = 01919-1] Goal Plan of Care Note [code = 79242-3] Goal Plan of Care Note [code = 13161-8] Goal Plan of Care Note [code = 91041-5] Goal Plan of Care Note [code = 64668-9] Goal Plan of Care Note [code = 97197-7] Goal Plan of Care Note [code = 34186-1] Goal Plan of Care Note [code = 37518-9] Goal Plan of Care Note [code = 84203-5] Goal Plan of Care Note [code = 24209-8] Goal Plan of Care Note [code = 46533-6] Goal Plan of Care Note [code = 67052-5] Goal Plan of Care Note [code = 19104-4] Goal Plan of Care Note [code = 15415-2] Goal Plan of Care Note [code = 57993-1] Goal Plan of Care Note [code = 14610-9] Goal Plan of Care Note [code = 50104-5] Goal Plan of Care Note [code = 72994-1] Goal Plan of Care Note [code = 66529-4] Goal Plan of Care Note [code = 36819-1] Goal Plan of Care Note [code = 18809-2] Goal Plan of Care Note [code = 82344-1] Goal Plan of Care Note [code = 34989-5] Goal Plan of Care Note [code = 57720-9] Goal Plan of Care Note [code = 75549-7] Goal Plan of Care Note [code = 16955-9] Goal Plan of Care Note [code = 99128-8] Goal Plan of Care Note [code = 00656-9] Encounters Start End Encounter Admission Attending Care Care Encounter Source Date/Time Date/Time Type Type Clinicians Facility Department ID 2022-03-24 2022-03-24 Outpatient [id number] 00:00:00 00:00:00 Visit s0r7-903p 4t4-265p-9 -9eea-2db eea-2db1e3 1p4t0p2hg f7b7fe 2022-03-10 2022-03-10 Outpatient [id number] 00:00:00 00:00:00 Visit 51ca-4550 1ca-4550-b -ji65-6nr i66-5flk7u j6s6gds1g 3fde1c 2022-02-23 2022-02-23 Outpatient [id number]- [id number] 00:00:00 00:00:00 Visit 17g7-7p86 3c0-1p92-z -a1nn-y6w 7fc-a5bf60 l55kyp63k afb74c 2022-02-19 2022-02-19 Outpatient [id number] cw60hy-[id number] 00:00:00 00:00:00 Visit zi27-18o4 i61-58w0-m -e243-j10 679-l72492 5150n4k8g 3a3e6a Results Test Description Test Time Test Comments Results Result Comments Source HEMOGLOBIN A1c 2022-02-20 05:23:56 Test Item Value Reference Range Interpretation Comme nts HEMOGLOBIN A1c (test code = 47145) 5.7 % 4.2-5.6 H TSH, THIRD [id number] 04:36:22 Test Item Value Reference Range Interpretation Comments TSH, THIRD 2.660 UIU/ML 0.400-4.100 UNLESS OTHERWI SE GENERATION (test INDICATED, ALL TESTING code = 2821) PERFORMED [facility], [id number] [place] [address] DIRECTOR: EUGENIE GRANADOS M.D. CLIA NUMBER [id number] CAP ACCREDITATION N O. [id number] LIPID [id number] 04:07:36 Test Item Value Reference Range Interpretation Comments CHOLESTEROL (test 228 MG/DL <200 H code = 2210) TRIGLYCERIDES (test 164 MG/DL <150 H code = 2232) HDL CHOLESTEROL (test 39 MG/DL >39 L code = 2220) CALC LDL CHOL (test 159 MG/DL <100 H NOTE: C ALCULATED LDL code = 2237) IS BASED ON JOSE RAUL-AMEZCUA METHOD WHICHINCLUDES ADJUSTABLE TRIGLYCERIDE:VL DL CHOLESTEROL RAT IO.THIS FACTOR VARIES B Y MEASURED TRIGLY CERIDE AND NON-HDLCHOL ESTEROL CONCENTRATIONS WITH INCREASED CALCU LATED LDL SEENIN HIGH ER TRIGLYCERIDE OR LOWER NON-HDL SPECIME NS. FOR MOREINFORMATION , SEE CLIENT ANNOUNCE MENT AT [email or web address] RISK RATIO LDL/HDL 4.08 RATIO <3.22 H (test code = 2238) COMPREHENSIVE METABOLIC [id number] 04:07:36 Test Item Value Reference Range Interpretation Comments GLUCOSE (test code = 105 MG/DL 70-99 H 2216) BUN (test code = 4 MG/DL 6-20 L 2207) CREATININE (test 0.80 MG/DL 0.60-1.30 code = 221) eGFR (2020 CKD-EPI) 98 ML/MIN/1.73 >60 (test code = 74277) CALC BUN/CREAT (test 5 RATIO 6-28 L code = 223) SODIUM (test code = 140 MEQ/L 710-644 2694) POTASSIUM (test code 4.3 MEQ/L 3.5-5.4 = 2227) CHLORIDE (test code 105 MEQ/L 95-107 = 2214) CARBON DIOXIDE (test 24 MEQ/L 19-31 code = 220) CALCIUM (test code = 9.5 MG/DL 8.5-10.5 2208) PROTEIN, TOTAL (test 7.5 G/DL 6.1-8.3 code = 222) ALBUMIN (test code = 4.3 G/DL 3.5-5.2 2200) CALC GLOBULIN (test 3.2 G/DL 1.9-3.7 code = 2240) CALC A/G RATIO (test 1.3 RATIO 1.0-2.6 code = 2234) BILIRUBIN, TOTAL 0.3 MG/DL See_Comment [Automated message] (test code = 2207) The syste m which generated this result transmit roberta reference range : <=1.2. The refe rence range was not u sed to interpret th is result as normal/abnormal . ALKALINE PHOSPHATASE 135 U/L 40-112 H (test code = 2204) AST (test code = 55 U/L 9-40 H 2217) ALT (test code = 46 U/L 5-40 H 2218) CBC W/AUTO DIFF WITH [id number] 03:09:14 Test Item Value Reference Range Interpretation Comments WBC (test code = 9.5 K/UL 3.5-11.0 1001) RBC (test code = 4.67 M/UL 3.80-5.40 1002) HEMOGLOBIN (test code 12.2 G/DL 11.5-15.5 = 1003) HEMATOCRIT (test code 36.9 % 34.0-45.0 = 1004) MCV (test code = 79.0 fL 80.0-99.0 L 1005) MCH (test code = 26.1 PG 25.0-33.0 1006) MCHC (test code = 33.1 G/DL 31.0-36.0 1007) RDW (test code = 14.1 % 11.5-15.0 1038) NEUTROPHILS (test 63.6 % code = 1008) LYMPHOCYTES (test 29.5 % code = 1010) MONOCYTES (test code 4.6 % = 1011) EOSINOPHILS (test 1.4 % code = 1012) BASOPHILS (test code 0.6 % = 1013) IMMATURE GRANULOCYTES 0.3 % (test code = 1036) NUCLEATED RBCS (test 0.0 /100 WBC'S See_Comment [Aut omated code = 1065) message] The sy stem which generated this result transmitted reference range : 0.0. The refere nce range was not u sed to interpret th is result as normal/abnormal . PLATELET COUNT (test 366 K/UL 130-400 code = 1015) ABSOLUTE NEUTROPHILS 6.05 K/UL 1.50-7.50 (test code = 1066) ABSOLUTE LYMPHOCYTES 2.81 K/UL 1.00-4.00 (test code = 1067) ABSOLUTE MONOCYTES 0.44 K/UL 0.20-1.00 (test code = 1068) ABSOLUTE EOSINOPHILS 0.13 K/UL 0.00-0.50 (test code = 1040) ABSOLUTE BASOPHILS 0.06 K/UL 0.00-0.20 (test code = 1069) ABS IMMATURE 0.03 K/UL 0.00-0.10 GRANULOCYTES (test code = 1020) ABS NUCLEATED RBCS 0.00 K/UL 0.00-0.11 (test code = 01239) LIPID [id number] 00:00:00 Test Item Value Reference Range Interpretation Comments CHOLESTEROL (test code = 2210) 228 MG/DL TRIGLYCERIDES (test code = 2232) 164 MG/DL HDL CHOLESTEROL (test code = 2220) 39 MG/DL CALC LDL CHOL (test code = 2237) 159 MG/DL RISK RATIO LDL/HDL (test code = 4.08 RATIO 2238) HEMOGLOBIN [id number] 00:00:00 Test Item Value Reference Range Interpretation Comments HEMOGLOBIN A1c (test code = 17531) 5.7 % CBC W/AUTO [id number] 00:00:00 Test Item Value Reference Range Interpretation Comments WBC (test code = 1001) 9.5 K/UL RBC (test code = 1002) 4.67 M/UL HEMOGLOBIN (test code = 1003) 12.2 G/DL HEMATOCRIT (test code = 1004) 36.9 % MCV (test code = 1005) 79.0 fL MCH (test code = 1006) 26.1 PG MCHC (test code = 1007) 33.1 G/DL RDW (test code = 1038) 14.1 % NEUTROPHILS (test code = 1008) 63.6 % LYMPHOCYTES (test code = 1010) 29.5 % MONOCYTES (test code = 1011) 4.6 % EOSINOPHILS (test code = 1012) 1.4 % BASOPHILS (test code = 1013) 0.6 % IMMATURE GRANULOCYTES (test 0.3 % code = 1036) NUCLEATED RBCS (test code = 0.0 /100WBC'S 1065) PLATELET COUNT (test code = 366 K/UL 1015) ABSOLUTE NEUTROPHILS (test code 6.05 K/UL = 1066) ABSOLUTE LYMPHOCYTES (test code 2.81 K/UL = 1067) ABSOLUTE MONOCYTES (test code = 0.44 K/UL 1068) ABSOLUTE EOSINOPHILS (test code 0.13 K/UL = 1040) ABSOLUTE BASOPHILS (test code = 0.06 K/UL 1069) ABS IMMATURE GRANULOCYTES (test 0.03 K/UL code = 1020) ABS NUCLEATED RBCS (test code = 0.00 K/UL 97935) HEMOGLOBIN [id number] 00:00:00 Test Item Value Reference Range Interpretation Comments HEMOGLOBIN A1c (test code = 44227) 5.7 % CBC W/AUTO [id number] 00:00:00 Test Item Value Reference Range Interpretation Comments WBC (test code = 1001) 9.5 K/UL RBC (test code = 1002) 4.67 M/UL HEMOGLOBIN (test code = 1003) 12.2 G/DL HEMATOCRIT (test code = 1004) 36.9 % MCV (test code = 1005) 79.0 fL MCH (test code = 1006) 26.1 PG MCHC (test code = 1007) 33.1 G/DL RDW (test code = 1038) 14.1 % NEUTROPHILS (test code = 1008) 63.6 % LYMPHOCYTES (test code = 1010) 29.5 % MONOCYTES (test code = 1011) 4.6 % EOSINOPHILS (test code = 1012) 1.4 % BASOPHILS (test code = 1013) 0.6 % IMMATURE GRANULOCYTES (test 0.3 % code = 1036) NUCLEATED RBCS (test code = 0.0 /100WBC'S 1065) PLATELET COUNT (test code = 366 K/UL 1015) ABSOLUTE NEUTROPHILS (test code 6.05 K/UL = 1066) ABSOLUTE LYMPHOCYTES (test code 2.81 K/UL = 1067) ABSOLUTE MONOCYTES (test code = 0.44 K/UL 1068) ABSOLUTE EOSINOPHILS (test code 0.13 K/UL = 1040) ABSOLUTE BASOPHILS (test code = 0.06 K/UL 1069) ABS IMMATURE GRANULOCYTES (test 0.03 K/UL code = 1020) ABS NUCLEATED RBCS (test code = 0.00 K/UL 42861) CBC W/AUTO [id number] 00:00:00 Test Item Value Reference Range Interpretation Comments WBC (test code = 1001) 9.5 K/UL RBC (test code = 1002) 4.67 M/UL HEMOGLOBIN (test code = 1003) 12.2 G/DL HEMATOCRIT (test code = 1004) 36.9 % MCV (test code = 1005) 79.0 fL MCH (test code = 1006) 26.1 PG MCHC (test code = 1007) 33.1 G/DL RDW (test code = 1038) 14.1 % NEUTROPHILS (test code = 1008) 63.6 % LYMPHOCYTES (test code = 1010) 29.5 % MONOCYTES (test code = 1011) 4.6 % EOSINOPHILS (test code = 1012) 1.4 % BASOPHILS (test code = 1013) 0.6 % IMMATURE GRANULOCYTES (test 0.3 % code = 1036) NUCLEATED RBCS (test code = 0.0 /100WBC'S 1065) PLATELET COUNT (test code = 366 K/UL 1015) ABSOLUTE NEUTROPHILS (test code 6.05 K/UL = 1066) ABSOLUTE LYMPHOCYTES (test code 2.81 K/UL = 1067) ABSOLUTE MONOCYTES (test code = 0.44 K/UL 1068) ABSOLUTE EOSINOPHILS (test code 0.13 K/UL = 1040) ABSOLUTE BASOPHILS (test code = 0.06 K/UL 1069) ABS IMMATURE GRANULOCYTES (test 0.03 K/UL code = 1020) ABS NUCLEATED RBCS (test code = 0.00 K/UL 46106) LIPID [id number] 00:00:00 Test Item Value Reference Range Interpretation Comments CHOLESTEROL (test code = 2210) 228 MG/DL TRIGLYCERIDES (test code = 2232) 164 MG/DL HDL CHOLESTEROL (test code = 2220) 39 MG/DL CALC LDL CHOL (test code = 2237) 159 MG/DL RISK RATIO LDL/HDL (test code = 4.08 RATIO 2238) LIPID [id number] 00:00:00 Test Item Value Reference Range Interpretation Comments CHOLESTEROL (test code = 2210) 228 MG/DL TRIGLYCERIDES (test code = 2232) 164 MG/DL HDL CHOLESTEROL (test code = 2220) 39 MG/DL CALC LDL CHOL (test code = 2237) 159 MG/DL RISK RATIO LDL/HDL (test code = 4.08 RATIO 2238) HEMOGLOBIN [id number] 00:00:00 Test Item Value Reference Range Interpretation Comments HEMOGLOBIN A1c (test code = 51358) 5.7 % HEMOGLOBIN [id number] 00:00:00 Test Item Value Reference Range Interpretation Comments HEMOGLOBIN A1c (test code = 64719) 5.7 % HEMOGLOBIN [id number] 00:00:00 Test Item Value Reference Range Interpretation Comments HEMOGLOBIN A1c (test code = 31196) 5.7 % COMPREHENSIVE METABOLIC [id number] 00:00:00 Test Item Value Reference Range Interpretation Comments GLUCOSE (test code = 2217) 105 MG/DL BUN (test code = 2208) 4 MG/DL CREATININE (test code = 2214) 0.80 MG/DL eGFR (2020 CKD-EPI) (test code 98 ML/MIN/1.73 = 58633) CALC BUN/CREAT (test code = 5 RATIO 2235) SODIUM (test code = 2231) 140 MEQ/L POTASSIUM (test code = 2228) 4.3 MEQ/L CHLORIDE (test code = 2215) 105 MEQ/L CARBON DIOXIDE (test code = 24 MEQ/L 220) CALCIUM (test code = 2209) 9.5 MG/DL PROTEIN, TOTAL (test code = 7.5 G/DL 2228) ALBUMIN (test code = 2201) 4.3 G/DL CALC GLOBULIN (test code = 3.2 G/DL 2240) CALC A/G RATIO (test code = 1.3 RATIO 2234) BILIRUBIN, TOTAL (test code = 0.3 MG/DL 2206) ALKALINE PHOSPHATASE (test 135 U/L code = 2204) AST (test code = 2218) 55 U/L ALT (test code = 2219) 46 U/L COMPREHENSIVE METABOLIC [id number] 00:00:00 Test Item Value Reference Range Interpretation Comments GLUCOSE (test code = 2217) 105 MG/DL BUN (test code = 2208) 4 MG/DL CREATININE (test code = 2214) 0.80 MG/DL eGFR (2020 CKD-EPI) (test code 98 ML/MIN/1.73 = 90321) CALC BUN/CREAT (test code = 5 RATIO 2235) SODIUM (test code = 2231) 140 MEQ/L POTASSIUM (test code = 2228) 4.3 MEQ/L CHLORIDE (test code = 2215) 105 MEQ/L CARBON DIOXIDE (test code = 24 MEQ/L 2205) CALCIUM (test code = 2209) 9.5 MG/DL PROTEIN, TOTAL (test code = 7.5 G/DL 2228) ALBUMIN (test code = 2201) 4.3 G/DL CALC GLOBULIN (test code = 3.2 G/DL 2240) CALC A/G RATIO (test code = 1.3 RATIO 2234) BILIRUBIN, TOTAL (test code = 0.3 MG/DL 7) ALKALINE PHOSPHATASE (test 135 U/L code = 2204) AST (test code = 2218) 55 U/L ALT (test code = 2219) 46 U/L [id number] 00:00:00 Test Item Value Reference Range Interpretation Comments TSH, THIRD GENERATION (test code 2.660 UIU/ML = 2821) COMPREHENSIVE METABOLIC [id number] 00:00:00 Test Item Value Reference Range Interpretation Comments GLUCOSE (test code = 2217) 105 MG/DL BUN (test code = 2208) 4 MG/DL CREATININE (test code = 2214) 0.80 MG/DL eGFR (2020 CKD-EPI) (test code 98 ML/MIN/1.73 = 18330) CALC BUN/CREAT (test code = 5 RATIO 2235) SODIUM (test code = 2231) 140 MEQ/L POTASSIUM (test code = 2228) 4.3 MEQ/L CHLORIDE (test code = 2215) 105 MEQ/L CARBON DIOXIDE (test code = 24 MEQ/L 2205) CALCIUM (test code = 2209) 9.5 MG/DL PROTEIN, TOTAL (test code = 7.5 G/DL 2228) ALBUMIN (test code = 220) 4.3 G/DL CALC GLOBULIN (test code = 3.2 G/DL 2239) CALC A/G RATIO (test code = 1.3 RATIO 2233) BILIRUBIN, TOTAL (test code = 0.3 MG/DL 2206) ALKALINE PHOSPHATASE (test 135 U/L code = 220) AST (test code = 2218) 55 U/L ALT (test code = 2219) 46 U/L [id number] 00:00:00 Test Item Value Reference Range Interpretation Comments TSH, THIRD GENERATION (test code 2.660 UIU/ML = 2821) [id number] 00:00:00 Test Item Value Reference Range Interpretation Comments TSH, THIRD GENERATION (test code 2.660 UIU/ML = 2821) [id number] 00:00:00 Test Item Value Reference Range Interpretation Comments TSH, THIRD GENERATION (test code 2.660 UIU/ML = 2821) [id number] 00:00:00 Test Item Value Reference Range Interpretation Comments TSH, THIRD GENERATION (test code 2.660 UIU/ML = 2821) CBC W/AUTO [id number] 00:00:00 Test Item Value Reference Range Interpretation Comments WBC (test code = 1001) 9.5 K/UL RBC (test code = 1002) 4.67 M/UL HEMOGLOBIN (test code = 1003) 12.2 G/DL HEMATOCRIT (test code = 1004) 36.9 % MCV (test code = 1005) 79.0 fL MCH (test code = 1006) 26.1 PG MCHC (test code = 1007) 33.1 G/DL RDW (test code = 1038) 14.1 % NEUTROPHILS (test code = 1008) 63.6 % LYMPHOCYTES (test code = 1010) 29.5 % MONOCYTES (test code = 1011) 4.6 % EOSINOPHILS (test code = 1012) 1.4 % BASOPHILS (test code = 1013) 0.6 % IMMATURE GRANULOCYTES (test 0.3 % code = 1036) NUCLEATED RBCS (test code = 0.0 /100WBC'S 1065) PLATELET COUNT (test code = 366 K/UL 1015) ABSOLUTE NEUTROPHILS (test code 6.05 K/UL = 1066) ABSOLUTE LYMPHOCYTES (test code 2.81 K/UL = 1067) ABSOLUTE MONOCYTES (test code = 0.44 K/UL 1068) ABSOLUTE EOSINOPHILS (test code 0.13 K/UL = 1040) ABSOLUTE BASOPHILS (test code = 0.06 K/UL 1069) ABS IMMATURE GRANULOCYTES (test 0.03 K/UL code = 1020) ABS NUCLEATED RBCS (test code = 0.00 K/UL 64416) CBC W/AUTO [id number] 00:00:00 Test Item Value Reference Range Interpretation Comments WBC (test code = 1001) 9.5 K/UL RBC (test code = 1002) 4.67 M/UL HEMOGLOBIN (test code = 1003) 12.2 G/DL HEMATOCRIT (test code = 1004) 36.9 % MCV (test code = 1005) 79.0 fL MCH (test code = 1006) 26.1 PG MCHC (test code = 1007) 33.1 G/DL RDW (test code = 1038) 14.1 % NEUTROPHILS (test code = 1008) 63.6 % LYMPHOCYTES (test code = 1010) 29.5 % MONOCYTES (test code = 1011) 4.6 % EOSINOPHILS (test code = 1012) 1.4 % BASOPHILS (test code = 1013) 0.6 % IMMATURE GRANULOCYTES (test 0.3 % code = 1036) NUCLEATED RBCS (test code = 0.0 /100WBC'S 1065) PLATELET COUNT (test code = 366 K/UL 1015) ABSOLUTE NEUTROPHILS (test code 6.05 K/UL = 1066) ABSOLUTE LYMPHOCYTES (test code 2.81 K/UL = 1067) ABSOLUTE MONOCYTES (test code = 0.44 K/UL 1068) ABSOLUTE EOSINOPHILS (test code 0.13 K/UL = 1040) ABSOLUTE BASOPHILS (test code = 0.06 K/UL 1069) ABS IMMATURE GRANULOCYTES (test 0.03 K/UL code = 1020) ABS NUCLEATED RBCS (test code = 0.00 K/UL 12638) LIPID [id number] 00:00:00 Test Item Value Reference Range Interpretation Comments CHOLESTEROL (test code = 2210) 228 MG/DL TRIGLYCERIDES (test code = 2232) 164 MG/DL HDL CHOLESTEROL (test code = 2220) 39 MG/DL CALC LDL CHOL (test code = 2237) 159 MG/DL RISK RATIO LDL/HDL (test code = 4.08 RATIO 2238) HEMOGLOBIN [id number] 00:00:00 Test Item Value Reference Range Interpretation Comments HEMOGLOBIN A1c (test code = 38708) 5.7 % HEMOGLOBIN [id number] 00:00:00 Test Item Value Reference Range Interpretation Comments HEMOGLOBIN A1c (test code = 07341) 5.7 % COMPREHENSIVE METABOLIC [id number] 00:00:00 Test Item Value Reference Range Interpretation Comments GLUCOSE (test code = 2217) 105 MG/DL BUN (test code = 2208) 4 MG/DL CREATININE (test code = 2214) 0.80 MG/DL eGFR (2020 CKD-EPI) (test code 98 ML/MIN/1.73 = 97643) CALC BUN/CREAT (test code = 5 RATIO 2235) SODIUM (test code = 2231) 140 MEQ/L POTASSIUM (test code = 2228) 4.3 MEQ/L CHLORIDE (test code = 2215) 105 MEQ/L CARBON DIOXIDE (test code = 24 MEQ/L 2205) CALCIUM (test code = 2209) 9.5 MG/DL PROTEIN, TOTAL (test code = 7.5 G/DL 2228) ALBUMIN (test code = 2201) 4.3 G/DL CALC GLOBULIN (test code = 3.2 G/DL 2239) CALC A/G RATIO (test code = 1.3 RATIO 223) BILIRUBIN, TOTAL (test code = 0.3 MG/DL 2206) ALKALINE PHOSPHATASE (test 135 U/L code = 2204) AST (test code = 2218) 55 U/L ALT (test code = 2219) 46 U/L [id number] 00:00:00 Test Item Value Reference Range Interpretation Comments TSH, THIRD GENERATION (test code 2.660 UIU/ML = 2821) [id number] 00:00:00 Test Item Value Reference Range Interpretation Comments TSH, THIRD GENERATION (test code 2.660 UIU/ML = 2821) CBC W/AUTO [id number] 00:00:00 Test Item Value Reference Range Interpretation Comments WBC (test code = 1001) 9.5 K/UL RBC (test code = 1002) 4.67 M/UL HEMOGLOBIN (test code = 1003) 12.2 G/DL HEMATOCRIT (test code = 1004) 36.9 % MCV (test code = 1005) 79.0 fL MCH (test code = 1006) 26.1 PG MCHC (test code = 1007) 33.1 G/DL RDW (test code = 1038) 14.1 % NEUTROPHILS (test code = 1008) 63.6 % LYMPHOCYTES (test code = 1010) 29.5 % MONOCYTES (test code = 1011) 4.6 % EOSINOPHILS (test code = 1012) 1.4 % BASOPHILS (test code = 1013) 0.6 % IMMATURE GRANULOCYTES (test 0.3 % code = 1036) NUCLEATED RBCS (test code = 0.0 /100WBC'S 1065) PLATELET COUNT (test code = 366 K/UL 1015) ABSOLUTE NEUTROPHILS (test code 6.05 K/UL = 1066) ABSOLUTE LYMPHOCYTES (test code 2.81 K/UL = 1067) ABSOLUTE MONOCYTES (test code = 0.44 K/UL 1068) ABSOLUTE EOSINOPHILS (test code 0.13 K/UL = 1040) ABSOLUTE BASOPHILS (test code = 0.06 K/UL 1069) ABS IMMATURE GRANULOCYTES (test 0.03 K/UL code = 1020) ABS NUCLEATED RBCS (test code = 0.00 K/UL 88156) CBC W/AUTO [id number] 00:00:00 Test Item Value Reference Range Interpretation Comments WBC (test code = 1001) 9.5 K/UL RBC (test code = 1002) 4.67 M/UL HEMOGLOBIN (test code = 1003) 12.2 G/DL HEMATOCRIT (test code = 1004) 36.9 % MCV (test code = 1005) 79.0 fL MCH (test code = 1006) 26.1 PG MCHC (test code = 1007) 33.1 G/DL RDW (test code = 1038) 14.1 % NEUTROPHILS (test code = 1008) 63.6 % LYMPHOCYTES (test code = 1010) 29.5 % MONOCYTES (test code = 1011) 4.6 % EOSINOPHILS (test code = 1012) 1.4 % BASOPHILS (test code = 1013) 0.6 % IMMATURE GRANULOCYTES (test 0.3 % code = 1036) NUCLEATED RBCS (test code = 0.0 /100WBC'S 1065) PLATELET COUNT (test code = 366 K/UL 1015) ABSOLUTE NEUTROPHILS (test code 6.05 K/UL = 1066) ABSOLUTE LYMPHOCYTES (test code 2.81 K/UL = 1067) ABSOLUTE MONOCYTES (test code = 0.44 K/UL 1068) ABSOLUTE EOSINOPHILS (test code 0.13 K/UL = 1040) ABSOLUTE BASOPHILS (test code = 0.06 K/UL 1069) ABS IMMATURE GRANULOCYTES (test 0.03 K/UL code = 1020) ABS NUCLEATED RBCS (test code = 0.00 K/UL 61714) CBC W/AUTO [id number] 00:00:00 Test Item Value Reference Range Interpretation Comments WBC (test code = 1001) 9.5 K/UL RBC (test code = 1002) 4.67 M/UL HEMOGLOBIN (test code = 1003) 12.2 G/DL HEMATOCRIT (test code = 1004) 36.9 % MCV (test code = 1005) 79.0 fL MCH (test code = 1006) 26.1 PG MCHC (test code = 1007) 33.1 G/DL RDW (test code = 1038) 14.1 % NEUTROPHILS (test code = 1008) 63.6 % LYMPHOCYTES (test code = 1010) 29.5 % MONOCYTES (test code = 1011) 4.6 % EOSINOPHILS (test code = 1012) 1.4 % BASOPHILS (test code = 1013) 0.6 % IMMATURE GRANULOCYTES (test 0.3 % code = 1036) NUCLEATED RBCS (test code = 0.0 /100WBC'S 1065) PLATELET COUNT (test code = 366 K/UL 1015) ABSOLUTE NEUTROPHILS (test code 6.05 K/UL = 1066) ABSOLUTE LYMPHOCYTES (test code 2.81 K/UL = 1067) ABSOLUTE MONOCYTES (test code = 0.44 K/UL 1068) ABSOLUTE EOSINOPHILS (test code 0.13 K/UL = 1040) ABSOLUTE BASOPHILS (test code = 0.06 K/UL 1069) ABS IMMATURE GRANULOCYTES (test 0.03 K/UL code = 1020) ABS NUCLEATED RBCS (test code = 0.00 K/UL 83024) LIPID [id number] 00:00:00 Test Item Value Reference Range Interpretation Comments CHOLESTEROL (test code = 2210) 228 MG/DL TRIGLYCERIDES (test code = 2232) 164 MG/DL HDL CHOLESTEROL (test code = 2220) 39 MG/DL CALC LDL CHOL (test code = 2237) 159 MG/DL RISK RATIO LDL/HDL (test code = 4.08 RATIO 2238) LIPID [id number] 00:00:00 Test Item Value Reference Range Interpretation Comments CHOLESTEROL (test code = 2210) 228 MG/DL TRIGLYCERIDES (test code = 2232) 164 MG/DL HDL CHOLESTEROL (test code = 2220) 39 MG/DL CALC LDL CHOL (test code = 2237) 159 MG/DL RISK RATIO LDL/HDL (test code = 4.08 RATIO 2238) HEMOGLOBIN [id number] 00:00:00 Test Item Value Reference Range Interpretation Comments HEMOGLOBIN A1c (test code = 53027) 5.7 % CBC W/AUTO [id number] 00:00:00 Test Item Value Reference Range Interpretation Comments WBC (test code = 1001) 9.5 K/UL RBC (test code = 1002) 4.67 M/UL HEMOGLOBIN (test code = 1003) 12.2 G/DL HEMATOCRIT (test code = 1004) 36.9 % MCV (test code = 1005) 79.0 fL MCH (test code = 1006) 26.1 PG MCHC (test code = 1007) 33.1 G/DL RDW (test code = 1038) 14.1 % NEUTROPHILS (test code = 1008) 63.6 % LYMPHOCYTES (test code = 1010) 29.5 % MONOCYTES (test code = 1011) 4.6 % EOSINOPHILS (test code = 1012) 1.4 % BASOPHILS (test code = 1013) 0.6 % IMMATURE GRANULOCYTES (test 0.3 % code = 1036) NUCLEATED RBCS (test code = 0.0 /100WBC'S 1065) PLATELET COUNT (test code = 366 K/UL 1015) ABSOLUTE NEUTROPHILS (test code 6.05 K/UL = 1066) ABSOLUTE LYMPHOCYTES (test code 2.81 K/UL = 1067) ABSOLUTE MONOCYTES (test code = 0.44 K/UL 1068) ABSOLUTE EOSINOPHILS (test code 0.13 K/UL = 1040) ABSOLUTE BASOPHILS (test code = 0.06 K/UL 1069) ABS IMMATURE GRANULOCYTES (test 0.03 K/UL code = 1020) ABS NUCLEATED RBCS (test code = 0.00 K/UL 41245) HEMOGLOBIN [id number] 00:00:00 Test Item Value Reference Range Interpretation Comments HEMOGLOBIN A1c (test code = 54872) 5.7 % HEMOGLOBIN [id number] 00:00:00 Test Item Value Reference Range Interpretation Comments HEMOGLOBIN A1c (test code = 88568) 5.7 % COMPREHENSIVE METABOLIC [id number] 00:00:00 Test Item Value Reference Range Interpretation Comments GLUCOSE (test code = 2217) 105 MG/DL BUN (test code = 2208) 4 MG/DL CREATININE (test code = 2214) 0.80 MG/DL eGFR (2020 CKD-EPI) (test code 98 ML/MIN/1.73 = 40867) CALC BUN/CREAT (test code = 5 RATIO 2235) SODIUM (test code = 2231) 140 MEQ/L POTASSIUM (test code = 2228) 4.3 MEQ/L CHLORIDE (test code = 2215) 105 MEQ/L CARBON DIOXIDE (test code = 24 MEQ/L 2205) CALCIUM (test code = 2209) 9.5 MG/DL PROTEIN, TOTAL (test code = 7.5 G/DL 2228) ALBUMIN (test code = 2201) 4.3 G/DL CALC GLOBULIN (test code = 3.2 G/DL 0) CALC A/G RATIO (test code = 1.3 RATIO 4) BILIRUBIN, TOTAL (test code = 0.3 MG/DL 2206) ALKALINE PHOSPHATASE (test 135 U/L code = 2204) AST (test code = 2218) 55 U/L ALT (test code = 2219) 46 U/L COMPREHENSIVE METABOLIC [id number] 00:00:00 Test Item Value Reference Range Interpretation Comments GLUCOSE (test code = 2217) 105 MG/DL BUN (test code = 2208) 4 MG/DL CREATININE (test code = 2214) 0.80 MG/DL eGFR (2020 CKD-EPI) (test code 98 ML/MIN/1.73 = 59305) CALC BUN/CREAT (test code = 5 RATIO 5) SODIUM (test code = 2231) 140 MEQ/L POTASSIUM (test code = 2228) 4.3 MEQ/L CHLORIDE (test code = 2215) 105 MEQ/L CARBON DIOXIDE (test code = 24 MEQ/L 2205) CALCIUM (test code = 2209) 9.5 MG/DL PROTEIN, TOTAL (test code = 7.5 G/DL 2228) ALBUMIN (test code = 220) 4.3 G/DL CALC GLOBULIN (test code = 3.2 G/DL 2239) CALC A/G RATIO (test code = 1.3 RATIO 2233) BILIRUBIN, TOTAL (test code = 0.3 MG/DL 2206) ALKALINE PHOSPHATASE (test 135 U/L code = 220) AST (test code = 2218) 55 U/L ALT (test code = 2219) 46 U/L [id number] 00:00:00 Test Item Value Reference Range Interpretation Comments TSH, THIRD GENERATION (test code 2.660 UIU/ML = 2821) [id number] 00:00:00 Test Item Value Reference Range Interpretation Comments TSH, THIRD GENERATION (test code 2.660 UIU/ML = 2821) [id number] 00:00:00 Test Item Value Reference Range Interpretation Comments TSH, THIRD GENERATION (test code 2.660 UIU/ML = 2821) CBC W/AUTO [id number] 00:00:00 Test Item Value Reference Range Interpretation Comments WBC (test code = 1001) 9.5 K/UL RBC (test code = 1002) 4.67 M/UL HEMOGLOBIN (test code = 1003) 12.2 G/DL HEMATOCRIT (test code = 1004) 36.9 % MCV (test code = 1005) 79.0 fL MCH (test code = 1006) 26.1 PG MCHC (test code = 1007) 33.1 G/DL RDW (test code = 1038) 14.1 % NEUTROPHILS (test code = 1008) 63.6 % LYMPHOCYTES (test code = 1010) 29.5 % MONOCYTES (test code = 1011) 4.6 % EOSINOPHILS (test code = 1012) 1.4 % BASOPHILS (test code = 1013) 0.6 % IMMATURE GRANULOCYTES (test 0.3 % code = 1036) NUCLEATED RBCS (test code = 0.0 /100WBC'S 1065) PLATELET COUNT (test code = 366 K/UL 1015) ABSOLUTE NEUTROPHILS (test code 6.05 K/UL = 1066) ABSOLUTE LYMPHOCYTES (test code 2.81 K/UL = 1067) ABSOLUTE MONOCYTES (test code = 0.44 K/UL 1068) ABSOLUTE EOSINOPHILS (test code 0.13 K/UL = 1040) ABSOLUTE BASOPHILS (test code = 0.06 K/UL 1069) ABS IMMATURE GRANULOCYTES (test 0.03 K/UL code = 1020) ABS NUCLEATED RBCS (test code = 0.00 K/UL 20902)
--- NOTE | 2022-04-24 18:14 | RAD REPORT ---
EXAM DESCRIPTION: US - Extremity Venous Uni Ltd - 04/24/2022 6:02 pm CLINICAL HISTORY: pain COMPARISON: None. TECHNIQUE: Real-time sonographic evaluation of the right lower extremity deep venous system was perf ormed. FINDINGS: Normal compressibility, flow augmentation, phasic flow and spontaneous flow is identified in the right lower extremity deep venous system. No intraluminal filling defects seen. IMPRESSION: No DVT in the right lower extremity.
--- NOTE | 2022-04-24 18:28 | RAD REPORT ---
EXAM DESCRIPTION: RAD - Pelvis - 04/24/2022 6:13 pm CLINICAL HISTORY: right upper leg pain COMPARISON: TRANSVAGINAL STUDY PROBE dated 04/30/2015 FINDINGS/IMPRESSION: No acute fracture. No malalignment. No significant focal degenerative changes.
--- NOTE | 2022-04-24 18:28 | RAD REPORT ---
EXAM DESCRIPTION: RAD - Femur Right - 04/24/2022 6:13 pm CLINICAL HISTORY: PAIN COMPARISON: No comparisons FINDINGS/IMPRESSION: No acute fracture. No malalignment. No significant focal degenerative changes.
[2022-04-24 19:37] LABS: Urine Blood 3+ (Negative); Urine Glucose Negative (Negative); Urine Protein Trace (Negative)
--- NOTE | 2022-04-24 20:02 | ER ---
Nurse's Notes [facility] Name: Rosanne Riojas Age: 36 yrs Sex: Female : 1985 Arrival Date: 04/24/2022 Time: 17:17 Bed 25 Private MD: Diagnosis: Pain in right leg Presentation: 04/24 17:23 Chief complaint: Patient states: unknowingly hurt right leg Wednesday while loading things kr3 at [employer]. now having pain in upper right thigh with trouble balancing. Coronavirus screen: Vaccine status: Patient reports receiving the 2nd dose of the covid vaccine. Client denies travel out of the [place] in the last 14 days. Ebola Screen: Patient denies travel to an Ebola-affected area in the 21 days before illness onset. Initial Sepsis Screen: Does the patient meet any 2 criteria? No. Patient's initial sepsis screen is negative. Does the patient have a suspected source of infection? No. Patient's initial sepsis screen is negative. Risk Assessment: Do you want to hurt yourself or someone else? Patient reports no desire to harm self or others. Onset of symptoms was April 21, 2022. 17:23 Method Of Arrival: Ambulatory kr3 17:23 Acuity: ILA 4 kr3 Triage Assessment: 17:29 General: Appears in no apparent distress. uncomfortable, Behavior is calm, cooperative. kr3 Pain: Complains of pain in right quadriceps. Historical: - Allergies: 17:27 Latex, Natural Rubber; kr3 17:27 Macrobid; kr3 17:27 meperidine HCl; kr3 17:27 PENICILLINS; kr3 17:27 Depakote; kr3 - PMHx: 17:27 "form of autism"; "gallbladder disease"; Gastric Reflux; kr3 - PSHx: 17:27 section; kr3 - Social history:: Smoking status: Patient reports the use of cigarette tobacco products, smokes one-half pack cigarettes per day. Screenin:15 Abuse screen: Denies threats or abuse. Denies injuries from another. Nutritional hb screening: No deficits noted. Tuberculosis screening: No symptoms or risk factors identified. Fall Risk None identified. Assessment: 20:15 General: Appears in no apparent distress. Behavior is calm, cooperative. Pain: Pain hb currently is 8 out of 10 on a pain scale. 20:15 Neuro: Level of Consciousness is awake, alert, obeys commands, Oriented to person, hb place, time, situation. Cardiovascular: Patient's skin is warm and dry. Respiratory: Respiratory effort is even, unlabored, Respiratory pattern is regular, symmetrical. GI: No signs and/or symptoms were reported involving the gastrointestinal system. : No signs and/or symptoms were reported regarding the genitourinary system. EENT: No signs and/or symptoms were reported regarding the EENT system. Derm: Skin is. Musculoskeletal: Reports right leg pain. Vital Signs: 17:23 BP 121 / 97; Pulse 99; Resp 18; Temp 98.4(O); Pulse Ox 100% on R/A; Weight 87.09 kg; kr3 Height 5 ft. 2 in. (157.48 cm); Pain 6/10; 17:23 Body Mass Index 35.12 (87.09 kg, 157.48 cm) kr3 ED Course: 17:17 Patient arrived in ED. mr 17:27 Triage completed. kr3 17:28 Rah Camacho PA is PHCP. cp 17:28 Juanpablo Henriquez MD is Attending Physician. cp 17:29 Arm band placed on left wrist. kr3 18:04 US Extremity Venous Unilateral Ltd In Process Unspecified. EDMS 18:15 XRAY Pelvis In Process Unspecified. EDMS 18:15 XRAY Femur RIGHT In Process Unspecified. EDMS 19:23 Aminata Phan is Primary Nurse. tw5 20:15 Patient has correct armband on for positive identification. hb 20:47 No provider procedures requiring assistance completed. Patient did not have IV access hb during this emergency room visit. Administered Medications: 20:30 Drug: Flexeril (cyclobenzaprine) 10 mg Route: PO; tw5 20:45 Follow up: Response: No adverse reaction; Medication administered at discharge. tw5 20:30 Drug: Ketorolac 60 mg Route: IM; Site: right deltoid; tw5 20:45 Follow up: Response: No adverse reaction tw5 Medication: 20:15 VIS not applicable for this client. hb Outcome: 20:01 Discharge ordered by . cp 20:47 Discharged to home via wheelchair, with significant other. hb 20:47 Condition: stable 20:47 Discharge instructions given to patient, Instructed on discharge instructions, follow up and referral plans. medication usage, Demonstrated understanding of instructions, follow-up care, medications, crutch walking, Prescriptions given X 2. 20:47 Patient left the ED. Signatures: Dispatcher [employer] BELLNM Isela Sweet Rah Camacho PA PA cp Baxter, Heather RN RN Aimnata Phan tw5 Moriah Garcia RN RN kr3
--- NOTE | 2022-04-24 20:02 | EDPHYS ---
Physician Documentation [facility] Name: Rosanne Riojas Age: 36 yrs Sex: Female : 1985 Arrival Date: 04/24/2022 Time: 17:17 Bed 25 Private MD: ED Physician Juanpablo Henriquez HPI: 04/24 18:00 This 36 yrs old Female presents to ER via Ambulatory with complaints of Leg Pain. cp 18:00 The patient presents with pain, that is acute. The complaints affect the lateral aspect cp of right thigh and right quadriceps. Context: unknown, started having pain since this past Wednesday. Thinks may have injured leg lifting and loading items while at [employer]. Historical: - Allergies: 17:27 Latex, Natural Rubber; kr3 17:27 Macrobid; kr3 17:27 meperidine HCl; kr3 17:27 PENICILLINS; kr3 17:27 Depakote; kr3 - PMHx: 17:27 "form of autism"; "gallbladder disease"; Gastric Reflux; kr3 - PSHx: 17:27 section; kr3 - Social history:: Smoking status: Patient reports the use of cigarette tobacco products, smokes one-half pack cigarettes per day. ROS: 18:05 Constitutional: Negative for body aches, chills, fever, poor PO intake. cp 18:05 Neck: Negative for pain with movement, pain at rest, stiffness. cp 18:05 Cardiovascular: Negative for chest pain, edema, palpitations. 18:05 Respiratory: Negative for cough, shortness of breath, wheezing. 18:05 Abdomen/GI: Negative for abdominal pain, nausea, vomiting, and diarrhea. 18:05 Back: Negative for injury or acute deformity, pain at rest, pain with movement, radiated pain. 18:05 : Negative for urinary symptoms, flank pain. 18:05 MS/extremity: Positive for pain, tenderness, of the lateral aspect of right thigh and anterior right thigh, Negative for decreased range of motion, deformity, paresthesias. 18:05 Neuro: Negative for numbness, tingling, weakness. 18:05 All other systems are negative. Exam: 18:10 Constitutional: The patient appears in no acute distress, alert, awake, non-toxic, well cp developed, well nourished, uncomfortable, overweight 18:10 Head/Face: Normocephalic, atraumatic. cp 18:10 Neck: ROM/movement: is normal, is supple, without pain, no range of motions limitations. 18:10 Chest/axilla: Inspection: normal. 18:10 Cardiovascular: Rate: normal, Pulses: pulse deficits are appreciated, Edema: is not appreciated, JVD: is not appreciated. 18:10 Respiratory: the patient does not display signs of respiratory distress, Respirations: normal, no use of accessory muscles, no retractions, labored breathing, is not present. 18:10 Abdomen/GI: Inspection: abdomen appears normal, Palpation: abdomen is soft and non-tender, in all quadrants. 18:10 Musculoskeletal/extremity: Extremities: grossly normal except: noted in the lateral aspect of right thigh and anterior thigh: pain, tenderness, There is no evidence of decreased ROM, deformity, ROM: full passive range of motion, in the right hip, Perfusion: the extremity is normally perfused throughout, the right upper leg 18:10 Skin: cellulitis, is not appreciated, no rash present. Vital Signs: 17:23 BP 121 / 97; Pulse 99; Resp 18; Temp 98.4(O); Pulse Ox 100% on R/A; Weight 87.09 kg; kr3 Height 5 ft. 2 in. (157.48 cm); Pain 6/10; 17:23 Body Mass Index 35.12 (87.09 kg, 157.48 cm) kr3 MDM: 19:16 Patient medically screened. cp 20:00 Data reviewed: vital signs, nurses notes, radiologic studies, plain films, ultrasound. cp 20:00 Differential diagnosis: closed fracture, contusion, DVT, muscle strain. Counseling: I cp had a detailed discussion with the patient and/or guardian regarding: the historical points, exam findings, and any diagnostic results supporting the discharge/admit diagnosis, radiology results, to return to the emergency department if symptoms worsen or persist or if there are any questions or concerns that arise at home. Response to treatment: the patient's symptoms have mildly improved after treatment, and as a result, I will discharge patient. 04/24 19:38 Order name: Urine Dipstick-Ancillary; Complete Time: 19:54 EDMI 04/24 19:39 Order name: Urine --Ancillary (enter results) oe 04/24 17:36 Order name: US Extremity Venous Unilateral Ltd; Complete Time: 19:54 cp 04/24 17:36 Order name: XRAY Pelvis; Complete Time: 19:54 cp 04/24 17:36 Order name: XRAY Femur RIGHT; Complete Time: 19:54 cp 04/24 17:36 Order name: Urine Dipstick-Ancillary (obtain specimen); Complete Time: 19:59 cp 04/24 17:36 Order name: Urine Test (obtain specimen); Complete Time: 19:59 cp 04/24 19:57 Order name: Crutches; Complete Time: 20:45 cp Administered Medications: 20:30 Drug: Flexeril (cyclobenzaprine) 10 mg Route: PO; tw5 20:45 Follow up: Response: No adverse reaction; Medication administered at discharge. tw5 20:30 Drug: Ketorolac 60 mg Route: IM; Site: right deltoid; tw 20:45 Follow up: Response: No adverse reaction tw5 Disposition Summary: 04/24/22 20:01 Discharge Ordered Location: Home cp Problem: new cp Symptoms: have improved cp Condition: Stable cp Diagnosis - Pain in right leg cp Followup: cp - With: Private Physician - When: 2 - 3 days - Reason: Recheck today's complaints Discharge Instructions: - Discharge Summary Sheet cp - Elastic Bandage and RICE Therapy cp - Musculoskeletal Pain cp Forms: - Medication Reconciliation Form cp - Thank You Letter cp - Antibiotic Education cp - Prescription Opioid Use cp Prescriptions: - Cyclobenzaprine 10 mg Oral Tablet - take 1 tablet by ORAL route every 8 hours As needed; 30 tablet; Refills: 0, cp Product Selection Permitted - Diclofenac Sodium 75 mg Oral Tablet Sustained Release - take 1 tablet by ORAL route 2 times per day; 30 tablet; Refills: 0, Product cp Selection Permitted Signatures: Dispatcher [employer] EDRah Muñoz PA PA cp Aminata Phan tw5 Moriah Garcia RN RN kr3
[2022-04-24] MEDS ORDERED: KETOROLAC 30 MG/ML INJ ONE (20:32)
[2022-04-24] MEDS ORDERED: CYCLOBENZAPRINE 10 MG TAB ONE (20:32)
[2022-04-26 03:53] VITALS: BP 121/97; TEMP 98.4; O2SAT 100
== END 2022-04-24 20:47 | disposition home or self-care (01) ==
LOC: ER 17:14
DX: M79.604 Pain in right leg (principal); F17.210 Nicotine dependence, cigarettes, uncomplicated
CPT/HCPCS: 72170; 81003; 81025; 93971; 96372; 99284

== ENCOUNTER 2022-05-30 17:42 | Emergency (ER) | payer SELFPAY ==
--- OUTSIDE RECORDS SUMMARY | 2022-05-30 17:46 | XMS REPORT | Continuity of Care Document ---
:1985 Author Organization [facility] t Address [address] [place] [address] Care Team Providers Name Role Phone Way Mae WITT Primary Care Physician [phone] Problems This patient has no known problems. [...] Date Date Medication? Clinician (SIG) Name Name TAKE 1 2021-0 No 25 TABLET 8-02 DAILY. 00:00: 00 Dose 2021-0 No Unknown 8-02 00:00: 00 TAKE 1 2021-0 No 5 TABLET 8-02 DAILY. 00:00: 00 TAKE 1 2021-0 No 25 TABLET 8-02 DAILY. 00:00: 00 TAKE 1 2021-0 No TABLET 8-02 DAILY. 00:00: 00 Dose 2-0 No Unknown 8-02 00:00: 00 TAKE 1 2021-0 No 25 TABLET 8-02 DAILY. 00:00: 00 Dose 2021-0 No Unknown 8-02 00:00: 00 TAKE 1 2-0 No 5 TABLET 8-02 DAILY. 00:00: 00 TAKE 1 2-0 No 25 TABLET 7-14 DAILY. 00:00: 00 TAKE 1 2022-0 No 25 TABLET 7-14 DAILY. 00:00: 00 TAKE 1 2022-0 No 25 TABLET 7-14 DAILY. 00:00: 00 TAKE 1 2021-0 No 25 TABLET 7-14 DAILY. 00:00: 00 TAKE 1 2021-0 No 25 TABLET 7-14 DAILY. 00:00: 00 bupropion 2020-1 No 1mg HCl 75 mg 2-02 tablet 00:00: 00 aripiprazol 2020-1 No 5mg e 10 mg 2-02 disintegrat 00:00: ing tablet 00 bupropion 1 No 1mg HCl 75 mg 2-02 tablet 00:00: 00 aripiprazol 2020-1 No 5mg e 10 mg 2-02 disintegrat 00:00: ing tablet 00 bupropion 2020-1 No 1mg HCl 75 mg 2-02 tablet 00:00: 00 aripiprazol 2020-1 No 5mg e 10 mg 2-02 disintegrat 00:00: ing tablet 00 bupropion 2020-1 No 1mg HCl 75 mg 2-02 tablet 00:00: 00 aripiprazol 2020-1 No 5mg e 10 mg 2-02 disintegrat 00:00: ing tablet 00 bupropion 1 No 1mg HCl 75 mg 2-02 tablet 00:00: 00 aripiprazol 2020-1 No 5mg e 10 mg 2-02 disintegrat 00:00: ing tablet 00 Vital Signs Vital Name Observation Time Observation Value Comments Source BP Systolic 2022-05-05 15:47:00 130 mm[Hg] BP Diastolic 2022-05-05 15:47:00 85 mm[Hg] Weight Measured 2022-05-05 15:47:00 197.20 pounds Height Measured 2022-05-05 15:47:00 62.00 inches Body Temperature 2022-05-05 15:47:00 98.60 degrees Heart Rate 2022-05-05 15:47:00 104.00 /min Respiratory Rate 2022-05-05 15:47:00 17.00 /min BP Systolic 2022-03-24 14:16:00 150 mm[Hg] BP [...] Goal Plan of Care Note [code = 19570-5] Goal Plan of Care Note [code = 82589-8] Goal Plan of Care Note [code = 87814-2] Goal Plan of Care Note [code = 83148-4] Goal Plan of Care Note [code = 85356-0] Goal Plan of Care Note [code = 05347-9] Goal Plan of Care Note [code = 68031-2] Goal Plan of Care Note [code = 11376-5] Goal Plan of Care Note [code = 22702-0] Goal Plan of Care Note [code = 12569-2] Goal Plan of Care Note [code = 61766-3] Goal Plan of Care Note [code = 52590-4] Goal Plan of Care Note [code = 29698-5] Goal Plan of Care Note [code = 48492-6] Goal Plan of Care Note [code = 24635-0] Goal Plan of Care Note [code = 38921-6] Goal Plan of Care Note [code = 08281-2] Goal Plan of Care Note [code = 68366-4] Goal Plan of Care Note [code = 49367-3] Goal Plan of Care Note [code = 28007-6] Goal Plan of Care Note [code = 26286-4] Goal Plan of Care Note [code = 64885-7] Goal Plan of Care Note [code = 43849-4] Goal Plan of Care Note [code = 18273-1] Goal Plan of Care Note [code = 56909-6] Goal Plan of Care Note [code = 33624-3] Goal Plan of Care Note [code = 43289-5] Goal Plan of Care Note [code = 74196-2] Goal Plan of Care Note [code = 60037-8] Goal Plan of Care Note [code = 05254-3] Goal Plan of Care Note [code = 19106-9] Goal Plan of Care Note [code = 16176-5] Goal Plan of Care Note [code = 40597-9] Goal Plan of Care Note [code = 28020-9] Goal Plan of Care Note [code = 28005-0] Goal Plan of Care Note [code = 87918-4] Goal Plan of Care Note [code = 28956-0] Goal Plan of Care Note [code = 70387-5] Goal Plan of Care Note [code = 17835-7] Goal Plan of Care Note [code = 21023-2] Goal Plan of Care Note [code = 56965-6] Goal Plan of Care Note [code = 46717-1] Goal Plan of Care Note [code = 14399-8] Goal Plan of Care Note [code = 31962-8] Goal Plan of Care Note [code = 09349-7] Goal Plan of Care Note [code = 43913-5] Goal Plan of Care Note [code = 19319-2] Goal Plan of Care Note [code = 59408-4] Goal Plan of Care Note [code = 05361-8] Goal Plan of Care Note [code = 41385-7] Goal Plan of Care Note [code = 84441-4] Goal Plan of Care Note [code = 48223-5] Goal Plan of Care Note [code = 02848-6] Encounters Start End Encounter Admission Attending Care Care Encounter Source Date/Time Date/Time Type Type Clinicians Facility Department ID 2022-05-05 2022-05-05 Outpatient [id number] 00:00:00 00:00:00 Visit cef9-4f46 ef9-4f46-b -t3y0-25l 1w3-35w3qk [id number] 1a6728 2022-03-24 2022-03-24 Outpatient [id number] 00:00:00 00:00:00 Visit d1c8-152u 2v0-052z-3 -9eea-2db eea-2db1e3 5v3u6u0uc f7b7fe 2022-03-10 2022-03-10 Outpatient [id number] 00:00:00 00:00:00 Visit 51ca-4550 1ca-4550-b -ze75-6gi h78-5goa4y w2s1ehz1v 3fde1c 2022-02-23 2022-02-23 Outpatient [id number]- [id number] 5q3v18-2 00:00:00 00:00:00 Visit 07n8-2a49 1r7-1n97-c -g7lq-r8x 7fc-a5bf60 s87koj07y afb74c 2022-02-19 2022-02-19 Outpatient [id number]- [id number] kz49ig-[id number] 00:00:00 00:00:00 Visit bn62-00o0 s17-46o0-y -o125-o41 [id number] 6961o5e3b 3a3e6a Results Test Description Test Time Test Comments Results Result Comments Source HEMOGLOBIN A1c 2022-02-20 05:23:56 Test Item Value Reference Range Interpretation Comme nts HEMOGLOBIN A1c (test code = 69694) 5.7 % 4.2-5.6 H TSH, THIRD [id number] 04:36:22 Test Item Value Reference Range Interpretation Comments TSH, THIRD 2.660 UIU/ML 0.400-4.100 UNLESS OTHERWI SE GENERATION (test INDICATED, ALL TESTING code = 2821) PERFORMED [facility], [address] DIRECTOR: EUGENIE GRANADOS M.D. CLIA NUMBER [id number] CAP ACCREDITATION N O. [id number] LIPID [id number] 04:07:36 Test Item Value Reference Range Interpretation [...] MOREINFORMATION , SEE CLIENT ANNOUNCE MENT AT [email or web address] RISK RATIO LDL/HDL 4.08 RATIO <3.22 H (test code = 2238) COMPREHENSIVE METABOLIC [id number] 04:07:36 Test Item Value Reference Range Interpretation Comments GLUCOSE (test code = 105 MG/DL 70-99 H 2216) BUN (test code = 4 MG/DL 6-20 L 2207) CREATININE (test 0.80 MG/DL 0.60-1.30 code = 221) eGFR (2020 CKD-EPI) 98 ML/MIN/1.73 >60 (test code = 94706) CALC BUN/CREAT (test 5 RATIO 6-28 L code = 2235) SODIUM (test code = 140 MEQ/L 385-036 0789) POTASSIUM (test code 4.3 MEQ/L 3.5-5.4 = 2227) CHLORIDE (test code 105 MEQ/L 95-107 = 2214) CARBON DIOXIDE (test 24 MEQ/L 19-31 code = 220) CALCIUM (test code = 9.5 MG/DL 8.5-10.5 2208) PROTEIN, TOTAL (test 7.5 G/DL 6.1-8.3 code = 2229) ALBUMIN (test code = 4.3 G/DL 3.5-5.2 [...] 5-40 H 2218) CBC W/AUTO DIFF WITH [id number] 03:09:14 Test Item Value Reference Range Interpretation [...] RBCS 0.00 K/UL 0.00-0.11 (test code = 43531) COMPREHENSIVE METABOLIC [id number] 00:00:00 Test Item Value Reference Range Interpretation Comments GLUCOSE (test code = 2217) 105 MG/DL BUN (test code = 2208) 4 MG/DL CREATININE (test code = 2214) 0.80 MG/DL eGFR (2020 CKD-EPI) (test code 98 ML/MIN/1.73 = 30869) CALC BUN/CREAT (test code = 5 RATIO [...] ALT (test code = 2219) 46 U/L [id number] 00:00:00 Test Item Value Reference Range Interpretation Comments TSH, THIRD GENERATION (test code 2.660 UIU/ML = 2821) [id number] 00:00:00 Test Item Value Reference Range Interpretation Comments TSH, THIRD GENERATION (test code 2.660 UIU/ML = 2821) [id number] 00:00:00 Test Item Value Reference Range Interpretation Comments TSH, THIRD GENERATION (test code 2.660 UIU/ML = 2821) CBC W/AUTO [id number] 00:00:00 Test Item Value Reference Range Interpretation [...] NUCLEATED RBCS (test code = 0.00 K/UL 91676) CBC W/AUTO [id number] 00:00:00 Test Item Value Reference Range Interpretation [...] NUCLEATED RBCS (test code = 0.00 K/UL 81333) LIPID [id number] 00:00:00 Test Item Value Reference Range Interpretation Comments CHOLESTEROL (test code = 2210) 228 MG/DL TRIGLYCERIDES (test code = 2232) 164 MG/DL HDL CHOLESTEROL (test code = 2220) 39 MG/DL CALC LDL CHOL (test code = 2237) 159 MG/DL RISK RATIO LDL/HDL (test code = 4.08 RATIO 2238) HEMOGLOBIN [id number] 00:00:00 Test Item Value Reference Range Interpretation Comments HEMOGLOBIN A1c (test code = 85680) 5.7 % HEMOGLOBIN [id number] 00:00:00 Test Item Value Reference Range Interpretation Comments HEMOGLOBIN A1c (test code = 51148) 5.7 % COMPREHENSIVE METABOLIC [id number] 00:00:00 Test Item Value Reference Range Interpretation Comments GLUCOSE (test code = 2217) 105 MG/DL BUN (test code = 2208) 4 MG/DL CREATININE (test code = 2214) 0.80 MG/DL eGFR (2020 CKD-EPI) (test code 98 ML/MIN/1.73 = 87594) CALC BUN/CREAT (test code = 5 RATIO [...] ALT (test code = 2219) 46 U/L [id number] 00:00:00 Test Item Value Reference Range Interpretation Comments TSH, THIRD GENERATION (test code 2.660 UIU/ML = 2821) [id number] 00:00:00 Test Item Value Reference Range Interpretation Comments TSH, THIRD GENERATION (test code 2.660 UIU/ML = 2821) CBC W/AUTO [id number] 00:00:00 Test Item Value Reference Range Interpretation [...] NUCLEATED RBCS (test code = 0.00 K/UL 36922) CBC W/AUTO [id number] 00:00:00 Test Item Value Reference Range Interpretation [...] NUCLEATED RBCS (test code = 0.00 K/UL 10493) CBC W/AUTO [id number] 00:00:00 Test Item Value Reference Range Interpretation [...] NUCLEATED RBCS (test code = 0.00 K/UL 55992) LIPID [id number] 00:00:00 Test Item Value Reference Range Interpretation Comments CHOLESTEROL (test code = 2210) 228 MG/DL TRIGLYCERIDES (test code = 2232) 164 MG/DL HDL CHOLESTEROL (test code = 2220) 39 MG/DL CALC LDL CHOL (test code = 2237) 159 MG/DL RISK RATIO LDL/HDL (test code = 4.08 RATIO 2238) LIPID [id number] 00:00:00 Test Item Value Reference Range Interpretation Comments CHOLESTEROL (test code = 2210) 228 MG/DL TRIGLYCERIDES (test code = 2232) 164 MG/DL HDL CHOLESTEROL (test code = 2220) 39 MG/DL CALC LDL CHOL (test code = 2237) 159 MG/DL RISK RATIO LDL/HDL (test code = 4.08 RATIO 2238) HEMOGLOBIN [id number] 00:00:00 Test Item Value Reference Range Interpretation Comments HEMOGLOBIN A1c (test code = 22517) 5.7 % CBC W/AUTO [id number] 00:00:00 Test Item Value Reference Range Interpretation [...] NUCLEATED RBCS (test code = 0.00 K/UL 13169) HEMOGLOBIN [id number] 00:00:00 Test Item Value Reference Range Interpretation Comments HEMOGLOBIN A1c (test code = 98004) 5.7 % HEMOGLOBIN [id number] 00:00:00 Test Item Value Reference Range Interpretation Comments HEMOGLOBIN A1c (test code = 16700) 5.7 % COMPREHENSIVE METABOLIC [id number] 00:00:00 Test Item Value Reference Range Interpretation Comments GLUCOSE (test code = 2217) 105 MG/DL BUN (test code = 2208) 4 MG/DL CREATININE (test code = 2214) 0.80 MG/DL eGFR (2020 CKD-EPI) (test code 98 ML/MIN/1.73 = 54007) CALC BUN/CREAT (test code = 5 RATIO 2235) SODIUM (test code = 2231) 140 MEQ/L POTASSIUM (test code = 2228) 4.3 MEQ/L CHLORIDE (test code = 2215) 105 MEQ/L CARBON DIOXIDE (test code = 24 MEQ/L 2206) CALCIUM (test code = 2209) 9.5 MG/DL [...] code = 2219) 46 U/L COMPREHENSIVE METABOLIC [id number] 00:00:00 Test Item Value Reference Range Interpretation Comments GLUCOSE (test code = 2217) 105 MG/DL BUN (test code = 2208) 4 MG/DL CREATININE (test code = 2214) 0.80 MG/DL eGFR (2020 CKD-EPI) (test code 98 ML/MIN/1.73 = 60519) CALC BUN/CREAT (test code = 5 RATIO 2234) SODIUM (test code = 2231) 140 MEQ/L [...] ALKALINE PHOSPHATASE (test 135 U/L code = 2203) AST (test code = 2218) 55 U/L ALT (test code = 2219) 46 U/L [id number] 00:00:00 Test Item Value Reference Range Interpretation Comments TSH, THIRD GENERATION (test code 2.660 UIU/ML = 2821) [id number] 00:00:00 Test Item Value Reference Range Interpretation Comments TSH, THIRD GENERATION (test code 2.660 UIU/ML = 2821) [id number] 00:00:00 Test Item Value Reference Range Interpretation Comments TSH, THIRD GENERATION (test code 2.660 UIU/ML = 2821) CBC W/AUTO [id number] 00:00:00 Test Item Value Reference Range Interpretation [...] NUCLEATED RBCS (test code = 0.00 K/UL 01833) LIPID [id number] 00:00:00 Test Item Value Reference Range Interpretation Comments CHOLESTEROL (test code = 2210) 228 MG/DL TRIGLYCERIDES (test code = 2232) 164 MG/DL HDL CHOLESTEROL (test code = 2220) 39 MG/DL CALC LDL CHOL (test code = 2237) 159 MG/DL RISK RATIO LDL/HDL (test code = 4.08 RATIO 2238) HEMOGLOBIN [id number] 00:00:00 Test Item Value Reference Range Interpretation Comments HEMOGLOBIN A1c (test code = 09471) 5.7 % CBC W/AUTO [id number] 00:00:00 Test Item Value Reference Range Interpretation [...] NUCLEATED RBCS (test code = 0.00 K/UL 23762) HEMOGLOBIN [id number] 00:00:00 Test Item Value Reference Range Interpretation Comments HEMOGLOBIN A1c (test code = 43303) 5.7 % CBC W/AUTO [id number] 00:00:00 Test Item Value Reference Range Interpretation [...] NUCLEATED RBCS (test code = 0.00 K/UL 48356) CBC W/AUTO [id number] 00:00:00 Test Item Value Reference Range Interpretation [...] NUCLEATED RBCS (test code = 0.00 K/UL 86333) LIPID [id number] 00:00:00 Test Item Value Reference Range Interpretation Comments CHOLESTEROL (test code = 2210) 228 MG/DL TRIGLYCERIDES (test code = 2232) 164 MG/DL HDL CHOLESTEROL (test code = 2220) 39 MG/DL CALC LDL CHOL (test code = 2237) 159 MG/DL RISK RATIO LDL/HDL (test code = 4.08 RATIO 2238) LIPID [id number] 00:00:00 Test Item Value Reference Range Interpretation Comments CHOLESTEROL (test code = 2210) 228 MG/DL TRIGLYCERIDES (test code = 2232) 164 MG/DL HDL CHOLESTEROL (test code = 2220) 39 MG/DL CALC LDL CHOL (test code = 2237) 159 MG/DL RISK RATIO LDL/HDL (test code = 4.08 RATIO 2238) HEMOGLOBIN [id number] 00:00:00 Test Item Value Reference Range Interpretation Comments HEMOGLOBIN A1c (test code = 66969) 5.7 % HEMOGLOBIN [id number] 00:00:00 Test Item Value Reference Range Interpretation Comments HEMOGLOBIN A1c (test code = 71955) 5.7 % HEMOGLOBIN [id number] 00:00:00 Test Item Value Reference Range Interpretation Comments HEMOGLOBIN A1c (test code = 40130) 5.7 % COMPREHENSIVE METABOLIC [id number] 00:00:00 Test Item Value Reference Range Interpretation Comments GLUCOSE (test code = 2217) 105 MG/DL BUN (test code = 2208) 4 MG/DL CREATININE (test code = 2214) 0.80 MG/DL eGFR (2020 CKD-EPI) (test code 98 ML/MIN/1.73 = 17703) CALC BUN/CREAT (test code = 5 RATIO [...] code = 2219) 46 U/L COMPREHENSIVE METABOLIC [id number] 00:00:00 Test Item Value Reference Range Interpretation Comments GLUCOSE (test code = 2217) 105 MG/DL BUN (test code = 2208) 4 MG/DL CREATININE (test code = 2214) 0.80 MG/DL eGFR (2020 CKD-EPI) (test code 98 ML/MIN/1.73 = 66274) CALC BUN/CREAT (test code = 5 RATIO [...] ALT (test code = 2219) 46 U/L [id number] 00:00:00 Test Item Value Reference Range Interpretation Comments TSH, THIRD GENERATION (test code 2.660 UIU/ML = 2821) COMPREHENSIVE METABOLIC [id number] 00:00:00 Test Item Value Reference Range Interpretation Comments GLUCOSE (test code = 2217) 105 MG/DL BUN (test code = 2208) 4 MG/DL CREATININE (test code = 2214) 0.80 MG/DL eGFR (2020 CKD-EPI) (test code 98 ML/MIN/1.73 = 67526) CALC BUN/CREAT (test code = 5 RATIO [...] ALT (test code = 2219) 46 U/L [id number] 00:00:00 Test Item Value Reference Range Interpretation Comments TSH, THIRD GENERATION (test code 2.660 UIU/ML = 2821) [id number] 00:00:00 Test Item Value Reference Range Interpretation Comments TSH, THIRD GENERATION (test code 2.660 UIU/ML = 2821) [id number] 00:00:00 Test Item Value Reference Range Interpretation Comments TSH, THIRD GENERATION (test code 2.660 UIU/ML = 2821) [id number] 00:00:00 Test Item Value Reference Range Interpretation Comments TSH, THIRD GENERATION (test code 2.660 UIU/ML = 2821) CBC W/AUTO [id number] 00:00:00 Test Item Value Reference Range Interpretation [...] NUCLEATED RBCS (test code = 0.00 K/UL 16106) CBC W/AUTO [id number] 00:00:00 Test Item Value Reference Range Interpretation [...] NUCLEATED RBCS (test code = 0.00 K/UL 44031) CBC W/AUTO [id number] 00:00:00 Test Item Value Reference Range Interpretation [...] NUCLEATED RBCS (test code = 0.00 K/UL 76771) LIPID [id number] 00:00:00 Test Item Value Reference Range Interpretation Comments CHOLESTEROL (test code = 2210) 228 MG/DL TRIGLYCERIDES (test code = 2232) 164 MG/DL HDL CHOLESTEROL (test code = 2220) 39 MG/DL CALC LDL CHOL (test code = 2237) 159 MG/DL RISK RATIO LDL/HDL (test code = 4.08 RATIO 2238) LIPID [id number] 00:00:00 Test Item Value Reference Range Interpretation Comments CHOLESTEROL (test code = 2210) 228 MG/DL TRIGLYCERIDES (test code = 2232) 164 MG/DL HDL CHOLESTEROL (test code = 2220) 39 MG/DL CALC LDL CHOL (test code = 2237) 159 MG/DL RISK RATIO LDL/HDL (test code = 4.08 RATIO 2238) HEMOGLOBIN [id number] 00:00:00 Test Item Value Reference Range Interpretation Comments HEMOGLOBIN A1c (test code = 63206) 5.7 % HEMOGLOBIN [id number] 00:00:00 Test Item Value Reference Range Interpretation Comments HEMOGLOBIN A1c (test code = 93127) 5.7 % HEMOGLOBIN [id number] 00:00:00 Test Item Value Reference Range Interpretation Comments HEMOGLOBIN A1c (test code = 08798) 5.7 % COMPREHENSIVE METABOLIC [id number] 00:00:00 Test Item Value Reference Range Interpretation Comments GLUCOSE (test code = 2217) 105 MG/DL BUN (test code = 2208) 4 MG/DL CREATININE (test code = 2214) 0.80 MG/DL eGFR (2020 CKD-EPI) (test code 98 ML/MIN/1.73 = 47930) CALC BUN/CREAT (test code = 5 RATIO 2235) SODIUM (test code = 2231) 140 MEQ/L POTASSIUM (test code = 2228) 4.3 MEQ/L CHLORIDE (test code = 2214) 105 MEQ/L CARBON DIOXIDE (test code = 24 MEQ/L 2205) CALCIUM (test code = 2208) 9.5 MG/DL PROTEIN, TOTAL (test code = 7.5 G/DL 2228) ALBUMIN (test code = 2200) 4.3 G/DL CALC GLOBULIN (test code = 3.2 G/DL 2239) CALC A/G RATIO (test code = 1.3 RATIO 2233) BILIRUBIN, TOTAL (test code = 0.3 MG/DL 2206) ALKALINE PHOSPHATASE (test 135 U/L code = 2203) AST (test code = 2217) 55 U/L ALT (test code = 2218) 46 U/L
[2022-05-30] MEDS ORDERED: DIPHENHYDRAMINE 50 MG/ML VIAL ONE (18:07)
[2022-05-30] MEDS ORDERED: dexAMETHasone 10 MG/ML VIAL ONE ×2 (18:07)
[2022-05-30] MEDS ORDERED: KETOROLAC 30 MG/ML INJ ONE (18:07)
[2022-05-30] MEDS ORDERED: METOCLOPRAMIDE 10 MG/2mL INJ ONE ×2 (18:07→18:17)
[2022-05-30] MEDS ORDERED: NA CHLORIDE 0.9% 500 ML ONE (18:13)
--- NOTE | 2022-05-30 19:47 | ER ---
Nurse's Notes [facility] Name: Rosanne Riojas Age: 36 yrs Sex: Female : 1985 Arrival Date: 05/30/2022 Time: 17:45 Bed 20 Private MD: Diagnosis: Migraine without aura, not intractable Presentation: 05/30 17:50 Chief complaint: Headache and N/V x 2 days. Hx of migraines, feels similar to previous. hb Coronavirus screen: Client presents with at least one sign or symptom that may indicate coronavirus-19. Standard/surgical mask placed on the client. Provider contacted for isolation considerations. Ebola Screen: No symptoms or risks identified at this time. Risk Assessment: Do you want to hurt yourself or someone else? Patient reports no desire to harm self or others. Onset of symptoms was May 29, 2022. 17:50 Method Of Arrival: Ambulatory hb 17:50 Acuity: ILA 3 hb 18:00 Initial Sepsis Screen: Does the patient meet any 2 criteria? No. Patient's initial [facility] sepsis screen is negative. Does the patient have a suspected source of infection? No. Patient's initial sepsis screen is negative. Triage Assessment: 18:00 Headache History: The patient has had previous headaches and this one is similar to [facility] previous episodes. General: Appears in no apparent distress. uncomfortable, Behavior is calm, cooperative, appropriate for age. Pain: Complains of pain in head Pain currently is 8 out of 10 on a pain scale. Pain began suddenly, Also complains of nausea, photophobia. Neuro: Level of Consciousness is awake, alert, obeys commands, Oriented to person, place, time, situation. 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 - Social history:: Smoking status: unknown. Screenin:08 Abuse screen: Denies threats or abuse. Denies injuries from another. Nutritional eh3 screening: No deficits noted. Tuberculosis screening: No symptoms or risk factors identified. Fall Risk None identified. Assessment: 18:00 General: Appears in no apparent distress. uncomfortable, Behavior is calm, cooperative, eh3 appropriate for age. Pain: Complains of pain in head. Neuro: Level of Consciousness is awake, alert, obeys commands, Oriented to person, place, time, situation. Cardiovascular: Capillary refill < 3 seconds Patient's skin is warm and dry. Respiratory: Airway is patent Respiratory effort is even, unlabored. GI: Abdomen is round non-distended. : No signs and/or symptoms were reported regarding the genitourinary system. EENT: No signs and/or symptoms were reported regarding the EENT system. Derm: No signs and/or symptoms reported regarding the dermatologic system. Musculoskeletal: Circulation, motion, and sensation intact. Range of motion: intact in all extremities. 19:00 Reassessment: Patient and/or family updated on plan of care and expected duration. Pain eh3 level reassessed. Patient is alert, oriented x 3, equal unlabored respirations, skin warm/dry/pink. Vital Signs: 17:50 BP 134 / 88; Pulse 105; Resp 18; Temp 97.9; Pulse Ox 99% on R/A; Weight 88 kg; Height 5 hb ft. 2 in. (157.48 cm); Pain 9/10; 18:00 BP 116 / 74; Pulse 91; Resp 16; Pulse Ox 100% on R/A; eh3 19:00 BP 126 / 80; Pulse 91; Resp 16; Pulse Ox 100% on R/A; eh3 20:00 BP 110 / 59; Pulse 79; Resp 16; Pulse Ox 100% on R/A; eh3 17:50 Body Mass Index 35.48 (88.00 kg, 157.48 cm) hb ED Course: 17:45 Patient arrived in ED. mr 17:49 Rao Henao PA is PHCP. [facility] 17:49 Armin Mabry MD is Attending Physician. [facility] 17:51 Triage completed. hb 17:52 Arm band placed on. hb 18:38 Abby Schumacher, RN is Primary Nurse. eh3 19:03 Inserted saline lock: 22 gauge in left antecubital area, using aseptic technique. zm 19:46 Phillip Montalvo MD is Referral Physician. [facility] 20:08 Patient has correct armband on for positive identification. Bed in low position. Call 3 light in reach. Side rails up X2. Client placed on continuous cardiac and pulse oximetry monitoring. NIBP monitoring applied. Door closed. Noise minimized. Lights dimmed. 20:08 No provider procedures requiring assistance completed. IV discontinued, intact, eh3 bleeding controlled, No redness/swelling at site. Pressure dressing applied. Administered Medications: 19:14 Drug: Reglan (metoCLOPramide) 20 mg Route: IVP; Site: left antecubital; eh3 20:06 Follow up: Response: Marked relief of symptoms eh3 19:14 Drug: diphenhydrAMINE 12.5 mg Route: IVP; Site: left antecubital; eh3 20:06 Follow up: Response: Marked relief of symptoms eh3 19:14 Drug: Ketorolac 30 mg Route: IVP; Site: left antecubital; eh3 20:06 Follow up: Response: Marked relief of symptoms eh3 19:14 Drug: Decadron - Dexamethasone 10 mg Route: IVP; Site: left antecubital; eh3 20:05 Follow up: Response: Marked relief of symptoms eh3 Medication: 20:09 VIS not applicable for this client. eh3 Outcome: 19:46 Discharge ordered by . [facility] 20:08 Discharged to home ambulatory. eh3 20:08 Condition: stable 20:08 Discharge instructions given to patient, Instructed on discharge instructions, follow up and referral plans. Demonstrated understanding of instructions, follow-up care. 20:09 Patient left the ED. eh3 Signatures: Rao Henao PA PA jmm SweetIsela Heather, RN RN Abby Schumacher, JUAN MARTINEZ [facility] Christa Kaba
--- NOTE | 2022-05-30 19:47 | EDPHYS ---
Physician Documentation [facility] Name: Rosanne Riojas Age: 36 yrs Sex: Female : 1985 Arrival Date: 05/30/2022 Time: 17:45 Bed 20 Private MD: ED Physician Armin Mabry HPI: 05/30 14:54 This 36 yrs old Female presents to ER via Ambulatory with complaints of Headache. jmm 19:42 Onset: The symptoms/episode began/occurred gradually, 2 day(s) ago. Associated signs jmm and symptoms: Pertinent positives: nausea, vomiting. Headache History: The patient has had previous headaches and this one is similar to previous episodes. The symptoms are alleviated by nothing. the symptoms are aggravated by lights. The patient has experienced similar episodes in the past. 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 - Social history:: Smoking status: unknown. ROS: 19:42 Constitutional: Negative for fever, chills, and weight loss, Cardiovascular: Negative jmm for chest pain, palpitations, and edema, Respiratory: Negative for shortness of breath, cough, wheezing, and pleuritic chest pain. 19:42 Abdomen/GI: Positive for vomiting. 19:42 Neuro: Positive for headache. 19:42 All other systems are negative. Exam: 19:42 Constitutional: This is a well developed, well nourished patient who is awake, alert, jmm and in no acute distress. Head/Face: atraumatic. Eyes: EOMI, no conjunctival erythema appreciated ENT: Moist Mucus Membranes Neck: Trachea midline, Supple Chest/axilla: Normal chest wall appearance and motion. Cardiovascular: Regular rate and rhythm. No edema appreciated Respiratory: Normal respirations, no respiratory distress appreciated Abdomen/GI: Non distended Back: Normal ROM Skin: General appearance color normal MS/ Extremity: Moves all extremities, no obvious deformities appreciated, no edema noted to the lower extremities Neuro: Awake and alert Psych: Behavior is normal, Mood is normal, Patient is cooperative and pleasant Vital Signs: 17:50 BP 134 / 88; Pulse 105; Resp 18; Temp 97.9; Pulse Ox 99% on R/A; Weight 88 kg; Height 5 hb ft. 2 in. (157.48 cm); Pain 9/10; 18:00 BP 116 / 74; Pulse 91; Resp 16; Pulse Ox 100% on R/A; eh3 19:00 BP 126 / 80; Pulse 91; Resp 16; Pulse Ox 100% on R/A; eh3 20:00 BP 110 / 59; Pulse 79; Resp 16; Pulse Ox 100% on R/A; eh3 17:50 Body Mass Index 35.48 (88.00 kg, 157.48 cm) hb MDM: 17:54 Patient medically screened. [facility] 19:45 Data reviewed: vital signs, nurses notes. Counseling: I had a detailed discussion with cary the patient and/or guardian regarding: the historical points, exam findings, and any diagnostic results supporting the discharge/admit diagnosis, the need for outpatient follow up, to return to the emergency department if symptoms worsen or persist or if there are any questions or concerns that arise at home. ED course: In the ED. Patient states feeling much better. I do not currently suspect subarachnoid hemorrhage or meningitis. Patient advised follow with neurology and otherwise given strict return precautions. Patient understood and agrees plan of care.. 05/30 17:55 Order name: Saline Lock; Complete Time: 19:04 [facility] Administered Medications: 19:14 Drug: Reglan (metoCLOPramide) 20 mg Route: IVP; Site: left antecubital; 3 20:06 Follow up: Response: Marked relief of symptoms eh3 19:14 Drug: diphenhydrAMINE 12.5 mg Route: IVP; Site: left antecubital; eh3 20:06 Follow up: Response: Marked relief of symptoms eh3 19:14 Drug: Ketorolac 30 mg Route: IVP; Site: left antecubital; eh3 20:06 Follow up: Response: Marked relief of symptoms eh3 19:14 Drug: Decadron - Dexamethasone 10 mg Route: IVP; Site: left antecubital; eh3 20:05 Follow up: Response: Marked relief of symptoms eh3 Disposition: 05/31 07:16 Co-signature as Attending Physician, Armin Mabry MD. rn Disposition Summary: 05/30/22 19:46 Discharge Ordered Location: Home [facility] Condition: Stable jmm Diagnosis - Migraine without aura, not intractable jmm Followup: [facility] - With: Phillip Montalvo MD - When: 2 - 3 days - Reason: Recheck today's complaints, Continuance of care, Re-evaluation by your physician Discharge Instructions: - Discharge Summary Sheet jm - Migraine Headache [facility] Forms: - Medication Reconciliation Form [facility] - Thank You Letter [facility] - Antibiotic Education [facility] - Prescription Opioid Use [facility] Signatures: Rao Henao PA PA jmm Nieto, Roman, MD MD rn Baxter, Heather, RN RN Abby Schumacher RN RN 3
[2022-05-30 20:23] VITALS: TEMP 97.9
[2022-05-30 20:28] VITALS: O2SAT 100
[2022-05-30 20:35] VITALS: BP 110/59
[2022-05-30] MEDS ORDERED: THIAMINE 200 MG/2 ML INJ ONE (22:06)
[2022-05-30] MEDS ORDERED: FOLIC ACID 5 MG/ML VIAL ONE (22:07)
[2022-05-30] MEDS ORDERED: MULTIVITAMINS 10 ML VIAL (INJ) IV ONE (22:07)
== END 2022-05-30 20:09 | disposition home or self-care (01) ==
LOC: ER 17:42
DX: G43.009 Migraine without aura, not intractable, without status migrainosus (principal); I10 Essential (primary) hypertension
CPT/HCPCS: 96374; 96375; 99283; J1100; J1200; J2765; J3411; J7040

== ENCOUNTER 2023-02-09 09:04 | Emergency (ER) | payer SELFPAY ==
--- OUTSIDE RECORDS SUMMARY | 2023-02-09 09:09 | XMS REPORT | Continuity of Care Document ---
:1985 Author Organization [facility] t Address [address] [place] [address] Care Team Providers Name Role Phone Pcp, Patient Does Not Have A Primary Care Physician +[id number] Service/[place], Surgery C Attending Clinician Unavailable Jm Moreland MD Attending Clinician JM MORELAND Attending Clinician Unavailable Doctor Unassigned, [place] Attending Clinician Unavailable Verito Stone LVN Attending Clinician Rudy Ko Attending Clinician Raymundo WITT, Mellisa [place] Attending Clinician Katherin Tanner MD Attending Clinician KATHERIN TANNER Attending Clinician Unavailable Sathya Smiley MD Attending Clinician Katherin Tanner MD Admitting Clinician KATHERIN TANNER Admitting Clinician Unavailable Payers Payer Name Policy Type Policy Number Effective Date Expiration Date S ource Problems Condition Condition Condition Status Onset Resolution Last Treating Co mments Source Name Details Category Date Date Treatment Clinician Date Acute Acute Disease Active Univers cholecysti cholecysti 1- it y of tis tis 00:00: [address] Obesity Obesity Disease Active Univers (BMI (BMI 1-31 ity of 30-39.9) 30-39.9) 00:00: [address] RUQ pain RUQ pain Disease Active Overview: Un carline 1-31 Formattin ity of 00:00: g of this [place] 00 note Medical might be Branch different from the original. 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 Allergies, Adverse Reactions, Alerts Allergy Allergy Status Severity Reaction(s) Onset Inactive Treating Comm ents Source Name Type Date Date Clinician Macrobid Propensi Active - Oral ty to 7-14 adverse 00:00: reaction 00 to drug tomatoes Propensi Active 2020-08 (Not ty to 2-02 Checked) adverse 00:00: reaction 00 to drug [place] Propensi Active Hives Univers And ty to 5-21 ity of Derivati adverse 00:00: [place] ves reaction 00 Medical s Branch Milk Propensi Active Diarrhea Univer s ty to 5-21 ity of adverse 00:00: [place] reaction 00 Medical s Branch Pineappl Propensi Active Hives Univer s e ty to 5-21 ity of adverse 00:00: [place] reaction 00 Medical s Branch CITRUS Drug Active Hives Univers AND Class 5-21 ity of DERIVATI 00:00: [place] VES 00 Medical Branch MILK DRUG Active Diarrhea Univers INGREDI 5-21 ity of 00:00: [place] 00 Medical Branch PINEAPPL DRUG Active Hives Univers E INGREDI 5-21 ity of 00:00: [place] 00 Medical Branch Tomato Propensi Active Unknown - Unive rs ty to See comments 11-04 ity of adverse 00:00: [place] reaction 00 Medical s Branch TOMATO DRUG Active Unknown-Cmnt Univ ers INGREDI 11-04 ity of 00:00: [place] 00 Medical Branch Nitrofur Propensi Active Dermatis, Uni vers antoin ty to Contact 10-08 ity of Monohyd/ adverse 00:00: [place] M-Cryst reaction 00 Medical s Branch NITROFUR DRUG Active CONTACT DERM Un carline ANTOIN 10-08 ity of MONOHYD/ 00:00: [place] M-CRYST 00 Medical Branch Latex Propensi Active Dermatitis, States Uni vers ty to Atopic 01-10 also gets ity of adverse 00:00: hivs [place] reaction 00 Medical s Branch Penicill Propensi Active Hives Univer s ins ty to 01-10 ity of adverse 00:00: [place] reaction Medical s Branch LATEX DRUG Active DERMATITIS, Unive rs INGREDI 01-10 ity of 00:00: [place] 00 Medical Branch PENICILL Drug Active Hives Univers INS Class 01-10 ity of 00:00: [place] 00 Medical Branch Social History Social Habit Start Date Stop Date Quantity Comments Source History of tobacco Cigarette Smoker University of use [place] [facility] History SDOH Social Unive rsity of [facility] Med ical Together Branch History SDOH Social Unive rsity of [facility] Medical Branch History SDOH Social Unive rsity of [facility] Medical Membership Branch History SDOH Social Unive rsity of [facility] Medical Meetings Branch Exposure to 2022-09-12 2022-09-22 Not sure University of SARS-CoV-2 (event) 00:00:00 13:14:00 [facility] Branch Tobacco use and 2022-09-22 2022-09-22 Smokeless tobacco Un iversity of exposure 00:00:00 00:00:00 non-user [facility] Branch Alcohol intake 2022-09-22 2022-09-22 Current drinker Unive rsity of 00:00:00 00:00:00 of alcohol [place] [facility] (finding) Branch Tobacco Comment 2022-09-22 2022-09-22 smokes 1/2 - 1 Unive rsity of 00:00:00 00:00:00 pack per day of [place] Med ical cigarettes Branch History SDOH 2022-09-09 2022-09-09 1 University o f Alcohol Frequency 00:00:00 00:00:00 [place] M edical Branch History SDOH 2022-09-09 2022-09-09 0 University o f Alcohol Std Drinks 00:00:00 00:00:00 [place] [facility] History SDOH 2022-09-09 2022-09-09 1 University o f Alcohol Binge 00:00:00 00:00:00 [place] Medic al Branch History SDOH Social 2022-09-09 2022-09-09 5 Unive rsity of Connections Phone 00:00:00 00:00:00 [place] M edical Branch History SDOH Social 2022-09-09 2022-09-09 7 Unive rsity of Connections Living 00:00:00 00:00:00 [place] [facility] History SDOH 2022-09-09 2022-09-09 4 University o f Physical Activity 00:00:00 00:00:00 [place] M edical DPW Branch History SDOH 2022-09-09 2022-09-09 3 University o f Physical Activity 00:00:00 00:00:00 [facility] edical MPS Branch History SDOH 2022-09-09 2022-09-09 5 University o f Financial 00:00:00 00:00:00 [place] [facility] History SDOH Food 2022-09-09 2022-09-09 1 Univers ity of Worry 00:00:00 00:00:00 [place] [facility] History SDOH Food 2022-09-09 2022-09-09 1 Univers ity of Scarcity 00:00:00 00:00:00 [place] [facility] History SDOH 2022-09-09 2022-09-09 2 University o f Transport Med 00:00:00 00:00:00 [place] Medic al Branch History SDOH 2022-09-09 2022-09-09 2 University o f Transport Non-Med 00:00:00 00:00:00 [facility] edical Branch Alcohol Comment 2013-12-27 2013-12-27 socially Universit y of 00:00:00 00:00:00 [facility] Sex [birth year] At [birth year] Universit y of 00:00:00 00:00:00 [facility] Smoking Status Start Date Stop Date Source Smokes tobacco daily 2022-09-22 00:00:00 [facility] Ordered Filled Start Stop Current Ordering Indication Dosage Frequency Signature Comments Components Source Medication Medication Date Date Medication? Clinician (SIG) Name Name ST[facility] ORR 2022- No 1{capsu Take 1 Cap Univers WORT ORAL 214 -14 le} by mouth 2 ity of 13:20: 00:00 (two) [place] 41 :00 times Medical daily. Branch [facility] ORR 2022- No 1{capsu Take 1 Cap Univers WORT ORAL 2-14 -14 le} by mouth 2 ity of 13:20: 00:00 (two) [place] 41 :00 times Medical daily. Branch pantoprazol Yes 40mg 40 mg, Univ ers e 2-03 Oral, ity of (PROTONIX) 15:00: DAILY, [place] EC tablet 00 First dose Medi ashley 40 mg on Fri [place] 09/11/22 at 0900, Until Discontinu ed, Routine pantoprazol 0 Yes 40mg 40 mg, Univ ers e 2-03 Oral, ity of (PROTONIX) 15:00: DAILY, [place] EC tablet 00 First dose Medi ashley 40 mg on Fri [place] 09/11/22 at 0900, Until Discontinu ed, Routine amLODIPine 2022-0 Yes 10mg Take 1 Unive rs 10 mg 2-03 tablet by ity of tablet 00:00: mouth in [place] 00 the Medical morning. Branch ARIPiprazol 2022-0 Yes 5mg Take 1 Univ ers e 5 mg 2-03 tablet by ity of tablet 00:00: mouth [place] 00 every Medical morning. Branch amLODIPine 2022-0 Yes 10mg Take 1 Unive rs 10 mg 2-03 tablet by ity of tablet 00:00: mouth in [place] 00 the Medical morning. Branch ARIPiprazol 2022-0 Yes 5mg Take 1 Univ ers e 5 mg 2-03 tablet by ity of tablet 00:00: mouth [place] 00 every Medical morning. Branch amLODIPine 2022-0 Yes 10mg Take 1 Unive rs 10 mg 2-03 tablet by ity of tablet 00:00: mouth in [place] 00 the Medical morning. Branch ARIPiprazol 2023-0 Yes 5mg Take 1 Univ ers e 5 mg 2-03 tablet by ity of tablet 00:00: mouth [place] 00 every Medical morning. Branch amLODIPine 2023-0 Yes 10mg Take 1 Unive rs 10 mg 2-03 tablet by ity of tablet 00:00: mouth in [place] 00 the Medical morning. Branch ARIPiprazol 2023-0 Yes 5mg Take 1 Univ ers e 5 mg 2-03 tablet by ity of tablet 00:00: mouth [place] 00 every Medical morning. Branch methocarbam 2023-0 Yes [id number] 500mg Take 1 Univers oL 500 mg 2-03 tablet by ity o f tablet 00:00: mouth 4 [place] (four) Medical times Branch daily as needed for Pain (scale 7-10). amLODIPine 2023-0 Yes 10mg Take 1 Unive rs 10 mg 2-03 tablet by ity of tablet 00:00: mouth in [place] 00 the Medical morning. Branch ARIPiprazol 2023-0 Yes 5mg Take 1 Univ ers e 5 mg 2-03 tablet by ity of tablet 00:00: mouth [place] 00 every Medical morning. Branch methocarbam 2023-0 Yes [id number] 500mg Take 1 Univers oL 500 mg 2-03 tablet by ity o f tablet 00:00: mouth 4 [place] (four) Medical times Branch daily as needed for Pain (scale 7-10). amLODIPine 2023-0 Yes 10mg Take 1 Unive rs 10 mg 2-03 tablet by ity of tablet 00:00: mouth in [place] 00 the Medical morning. Branch ARIPiprazol 2023-0 Yes 5mg Take 1 Univ ers e 5 mg 2-03 tablet by ity of tablet 00:00: mouth [place] 00 every Medical morning. Branch methocarbam 2023-0 Yes [id number] 500mg Take 1 Univers oL 500 mg 2-03 tablet by ity o f tablet 00:00: mouth 4 [place] (four) Medical times Branch daily as needed for Pain (scale 7-10). amLODIPine 2023-0 Yes 10mg Take 1 Unive rs 10 mg 2-03 tablet by ity of tablet 00:00: mouth in [place] 00 the Medical morning. Branch ARIPiprazol 2023-0 Yes 5mg Take 1 Univ ers e 5 mg 2-03 tablet by ity of tablet 00:00: mouth [place] 00 every Medical morning. [place] acetaminoph Yes 1000mg 1,000 mg, Univers en 2-02 Oral, Q8H, ity of (TYLENOL) 20:00: First dose [place] tablet 00 on [facility] Medical 1,000 mg 09/10/22 at [place] 1400, Until Discontinu ed, Routine acetaminoph Yes 1000mg 1,000 mg, Univers en 2-02 Oral, Q8H, ity of (TYLENOL) 20:00: First dose [place] tablet 00 on [facility] Medical 1,000 mg 09/10/22 at [place] 1400, Until Discontinu ed, Routine FOLIC ACID Yes 1{tbl} Take 1 Tab Univers ORAL 2-02 by mouth ity of 18:13: daily. [address] CYANOCOBALA Yes 1{tbl} Take 1 Tab Univers MIN, 2-02 by mouth ity of VITAMIN 18:13: daily. [place] [address] Medical (VITAMIN Branch B-12 ORAL) [facility] Yes 1{capsu Take 1 Cap Univers WORT ORAL 2-02 le} by mouth 2 ity of 18:13: (two) [place] [address] times Medical daily. [place] KELP ORAL Yes 1{capsu Take 1 Cap Univers 2-02 le} by mouth ity of 18:13: daily. [address] FOLIC ACID Yes 1{tbl} Take 1 Tab Univers ORAL 2-02 by mouth ity of 18:13: daily. [address] CYANOCOBALA Yes 1{tbl} Take 1 Tab Univers MIN, 2-02 by mouth ity of VITAMIN 18:13: daily. [place] [address] Medical (VITAMIN Branch B-12 ORAL) [facility] Yes 1{capsu Take 1 Cap Univers WORT ORAL 2-02 le} by mouth 2 ity of 18:13: (two) [place] [address] times Medical daily. [place] KELP ORAL Yes 1{capsu Take 1 Cap Univers 2-02 le} by mouth ity of 18:13: daily. [address] FOLIC ACID Yes 1{tbl} Take 1 Tab Univers ORAL 2-02 by mouth ity of 18:13: daily. [place] [address] Medical Branch CYANOCOBALA Yes 1{tbl} Take 1 Tab Univers MIN, 2-02 by mouth ity of VITAMIN 18:13: [facility]. [facility] (VIT[facility] Branch B-12 ORAL) [facility] Yes 1{capsu Take 1 Cap Univers WORT ORAL 2-02 le} by mouth 2 ity of 18:13: (two) [place] [address] times Medical daily. Branch KELP ORAL Yes 1{capsu Take 1 Cap Univers 2-02 le} by mouth ity of 18:13: daily. [address] Branch FOLIC ACID Yes 1{tbl} Take 1 Tab Univers ORAL 2-02 by mouth ity of 18:13: daily. [address] Branch CYANOCOBALA Yes 1{tbl} Take 1 Tab Univers MIN, 2-02 by mouth ity of VITAMIN 18:13: daily. [facility] Medical (VITAMIN Branch B-12 ORAL) KELP ORAL Yes 1{capsu Take 1 Cap Univers 2-02 le} by mouth ity of 18:13: daily. [address] Branch FOLIC ACID Yes 1{tbl} Take 1 Tab Univers ORAL 2-02 by mouth ity of 18:13: daily. [address] Branch CYANOCOBALA Yes 1{tbl} Take 1 Tab Univers MIN, 2-02 by mouth ity of VITAMIN 18:13: daily. [facility] Medical (VITAMIN Branch B-12 ORAL) KELP ORAL Yes 1{capsu Take 1 Cap Univers 2-02 le} by mouth ity of 18:13: daily. [place] [address] Medical Branch FOLIC ACID Yes 1{tbl} Take 1 Tab Univers ORAL 2-02 by mouth ity of 18:13: daily. [address] CYANOCOBALA Yes 1{tbl} Take 1 Tab Univers MIN, 2-02 by mouth ity of VITAMIN 18:13: daily. [place] [address] Medical (VITAMIN Branch B-12 ORAL) [facility] Yes 1{capsu Take 1 Cap Univers WORT ORAL 2-02 le} by mouth 2 ity of 18:13: (two) [place] 55 times Medical daily. Branch KELP ORAL Yes 1{capsu Take 1 Cap Univers 2-02 le} by mouth ity of 18:13: daily. [address] methocarbam 0 Yes 500mg 500 mg, Un carline oL 2-02 Oral, QID, ity of (ROBAXIN) 18:00: First dose [place] tablet 500 00 on [place] Medical mg 09/10/22 at Branch 1200, Until Discontinu ed, Routine methocarbam 0 Yes 500mg 500 mg, Un carline oL 2-02 Oral, QID, ity of (ROBAXIN) 18:00: First dose [place] tablet 500 00 on [place] Medical mg 09/10/22 at Branch 1200, Until Discontinu ed, Routine ondansetron 2022- No 4mg 4 mg, Univ ers (ZOFRAN) 09-10 Oral, ity of tablet 4 mg 18:00: 19:05 ONCE, 1 [place] 00 :00 dose, On Medical [place] 09/10/22 Branch at 1200, Routine FOLIC ACID Yes 1{tbl} Take 1 Tab Univers ORAL 2-02 by mouth ity of 11:56: daily. [address] CYANOCOBALA Yes 1{tbl} Take 1 Tab Univers MIN, 2-02 by mouth ity of VITAMIN 11:56: daily. [place] B12, [address] [place] [address] (VITAMIN Branch B-12 ORAL) [facility] Yes 1{capsu Take 1 Cap Univers WORT ORAL 2-02 le} by mouth 2 ity of 11:56: (two) [place] 30 times Medical daily. Branch KELP ORAL 0 Yes 1{capsu Take 1 Cap Univers 2-02 le} by mouth ity of 11:56: daily. [address] acetaminoph 202- No 1000mg 1,000 mg, Univers en ADULT 09-10 IV ity of (OFIRMEV) 04:00: 17:03 Infusion, [place] injection 00 :57 at 400 Medical 1,000 mg mL/hr Branch Administer over 15 Minutes, Q8H, 3 doses, First dose (after last reorder) on Wed09/09/22 at 2200, Last dose on [place] 09/10/22 at 1400, Routine
Indicatio n: Perioperat kelsey Patient traMADoL Yes 50mg 50 mg, Univers (ULTRAM) 2-02 Oral, ity of tablet 50 01:48: Q6HPRN, [place] mg 50 Starting Medical on Wed Branch 09/09/22 at 1948, Until Discontinu ed, Routine, Pain (scale 4-6) traMADoL Yes 50mg 50 mg, Univers (ULTRAM) -02 Oral, ity of tablet 50 01:48: Q6HPRN, [place] mg 50 Starting Medical on Wed Branch 09/09/22 at 1948, Until Discontinu ed, Routine, Pain (scale 4-6) lactated 2022- No 1000mL at 42 Unive rs ringers IV 09-10 mL/hr, ity of infusion 00:45: 12:46 1,000 mL, [place] 1,000 mL 00 :10 IV Medical Infusion, Branch CONTINUOUS , Starting on Wed09/09/22 at 1845, Until [place] 09/10/22 at 0646, Routine FENTanyl PF No 25ug 25 mcg, Un carline (SUBLIMAZE 09-10 Slow IV ity o f (PF)) 00:37: 02:16 Push, [place] injection 16 :05 Q5MIN PRN, Medi ashley 25 mcg 4 doses, Branch Starting on Wed09/09/22 at 1837, Until Wed09/09/22 at 2016, Routine, Pain (scale 4-6), PACU acetaminoph 2022- No 1{tbl} 1 tablet, Univers en-codeine 09-10 Oral, PRN, it y of (TYLENOL 00:37: 01:21 1 dose, [place] #3) 300-30 16 :00 Starting Medic al mg tablet 1 on Wed Branch tablet 09/09/22 at 1837, Until Wed09/09/22 at 1921, Routine, Pain (scale 1-3), PACU acetaminoph Yes [id number] 1000mg Take 2 Univers en 500 mg -02 tablets by ity of tablet 00:00: mouth [place] 00 every 8 Medical (eight) Branch hours as needed for Pain. ARIPiprazol 2023-0 Yes 10mg Take 1 Univ ers e 10 mg 2-02 tablet by ity of tablet 00:00: mouth at [place] 00 bedtime. Medical Branch busPIRone 5 3-0 Yes 5mg Take 1 Univ ers mg tablet 2-02 tablet by ity o f 00:00: mouth in [place] 00 the Medical morning Branch and 1 tablet in the evening. ibuprofen 2023-0 Yes [id number] 600mg Take 1 Univers 600 mg 2-02 tablet by ity of tablet 00:00: mouth [place] 00 every 6 Medical (six) Branch hours as needed for Pain (scale 4-6). acetaminoph 2023-0 Yes [id number] 1000mg Take 2 Univers en 500 mg 2-02 tablets by ity of tablet 00:00: mouth [place] 00 every 8 Medical (eight) Branch hours as needed for Pain. ARIPiprazol 3-0 Yes 10mg Take 1 Univ ers e 10 mg 2-02 tablet by ity of tablet 00:00: mouth at [place] 00 bedtime. Medical Branch busPIRone 5 2022-0 Yes 5mg Take 1 Univ ers mg tablet 2-02 tablet by ity o f 00:00: mouth in [place] 00 the Medical morning Branch and 1 tablet in the evening. ibuprofen 2023-0 Yes [id number] 600mg Take 1 Univers 600 mg 2-02 tablet by ity of tablet 00:00: mouth [place] 00 every 6 Medical (six) Branch hours as needed for Pain (scale 4-6). acetaminoph 2023-0 Yes [id number] 1000mg Take 2 Univers en 500 mg 2-02 tablets by ity of tablet 00:00: mouth [place] 00 every 8 Medical (eight) Branch hours as needed for Pain. ARIPiprazol 2023-0 Yes 10mg Take 1 Univ ers e 10 mg 2-02 tablet by ity of tablet 00:00: mouth at [place] 00 bedtime. Medical Branch busPIRone 5 3-0 Yes 5mg Take 1 Univ ers mg tablet 2-02 tablet by ity o f 00:00: mouth in [place] 00 the Medical morning Branch and 1 tablet in the evening. ibuprofen 2023-0 Yes [id number] 600mg Take 1 Univers 600 mg 2-02 tablet by ity of tablet 00:00: mouth [place] 00 every 6 Medical (six) Branch hours as needed for Pain (scale 4-6). acetaminoph 2023-0 Yes [id number] 1000mg Take 2 Univers en 500 mg 2-02 tablets by ity of tablet 00:00: mouth [place] 00 every 8 Medical (eight) Branch hours as needed for Pain. ARIPiprazol 2023-0 Yes 10mg Take 1 Univ ers e 10 mg 2-02 tablet by ity of tablet 00:00: mouth at [place] 00 bedtime. Medical Branch busPIRone 5 3-0 Yes 5mg Take 1 Univ ers mg tablet 2-02 tablet by ity o f 00:00: mouth in [place] 00 the Medical morning Branch and 1 tablet in the evening. ibuprofen 3-0 Yes [id number] 600mg Take 1 Univers 600 mg 2-02 tablet by ity of tablet 00:00: mouth [place] 00 every 6 Medical (six) Branch hours as needed for Pain (scale 4-6). acetaminoph 2023-0 Yes [id number] 1000mg Take 2 Univers en 500 mg 2-02 tablets by ity of tablet 00:00: mouth [place] 00 every 8 Medical (eight) Branch hours as needed for Pain. ARIPiprazol 3-0 Yes 10mg Take 1 Univ ers e 10 mg 2-02 tablet by ity of tablet 00:00: mouth at [place] 00 bedtime. Medical Branch ibuprofen 3-0 Yes [id number] 600mg Take 1 Univers 600 mg 2-02 tablet by ity of tablet 00:00: mouth [place] 00 every 6 Medical (six) Branch hours as needed for Pain (scale 4-6). acetaminoph 2023-0 Yes [id number] 1000mg Take 2 Univers en 500 mg 2-02 tablets by ity of tablet 00:00: mouth [place] 00 every 8 Medical (eight) Branch hours as needed for Pain. ARIPiprazol 2023-0 Yes 10mg Take 1 Univ ers e 10 mg 2-02 tablet by ity of tablet 00:00: mouth at [place] 00 bedtime. Medical Branch ibuprofen 2023-0 Yes [id number] 600mg Take 1 Univers 600 mg 2-02 tablet by ity of tablet 00:00: mouth [place] 00 every 6 Medical (six) Branch hours as needed for Pain (scale 4-6). acetaminoph 2022-0 Yes [id number] 1000mg Take 2 Univers en 500 mg 2-02 tablets by ity of tablet 00:00: mouth [place] 00 every 8 Medical (eight) Branch hours as needed for Pain. ARIPiprazol 2022-0 Yes 10mg Take 1 Univ ers e 10 mg 2-02 tablet by ity of tablet 00:00: mouth at [place] 00 bedtime. Medical Branch busPIRone 5 2022-0 Yes 5mg Take 1 Univ ers mg tablet 2-02 tablet by ity o f 00:00: mouth in [place] 00 the Medical morning Branch and 1 tablet in the evening. ibuprofen 2022-0 Yes [id number] 600mg Take 1 Univers 600 mg 2-02 tablet by ity of tablet 00:00: mouth [place] 00 every 6 Medical (six) Branch hours as needed for Pain (scale 4-6). busPIRone 5 2022-0 2023- No 5mg Take 1 Uni vers mg tablet 09-10-14 tablet by ity of 00:00: 00:00 mouth in [place] 00 :00 the Medical morning Branch and 1 tablet in the evening. busPIRone 5 2022-0 2023- No 5mg Take 1 Uni vers mg tablet 09-10-14 tablet by ity of 00:00: 00:00 mouth in [place] 00 :00 the Medical morning Branch and 1 tablet in the evening. bupivacaine 2022-0 3- No PRN, Unive rs (preserv 09-09 Starting ity of free) 22:57: 00:51 on Wed (SENSORCAIN 00 :09/09/22 at Med ical E [facility]) 0.25 1657, Branch % (2.5 Until Wed mg/mL) 09/09/22 at injection 1851, Routine, Intra-op ARIPiprazol 2022-0 Yes 5mg 5 mg, Unive rs e (ABILIFY) 09-09 Oral, QAM, it y of tablet 5 mg 15:00: First dose [place] 00 on Wed Medical 09/09/22 at Branch 0900, Until Discontinu ed, Routine amLODIPine 2022-0 Yes 10mg 10 mg, Unive rs (NORVASC) 09-09 Oral, ity of tablet 10 15:00: DAILY, [place] mg 00 First dose Medical on Wed09/09/22 at 0900, Until Discontinu ed, Routine enoxaparin 2023-0 Yes 40mg 40 mg, Unive rs (LOVENOX) 09-09 Subcutaneo ity of injection 15:00: us, DAILY, [place] 40 mg 00 First dose Medical on Wed09/09/22 at 0900, Until Discontinu ed, Routine ARIPiprazol 3-0 Yes 5mg 5 mg, Unive rs e (ABILIFY) 2 Oral, QAM, it y of tablet 5 mg 15:00: First dose [place] 00 on Wed [facility] 09/09/22 at Branch 0900, Until Discontinu ed, Routine amLODIPine 3-0 Yes 10mg 10 mg, Unive rs (NORVASC) 2 Oral, ity of tablet 10 15:00: DAILY, [place] mg 00 First dose Medical on Wed09/09/22 at 0900, Until Discontinu ed, Routine enoxaparin 3-0 Yes 40mg 40 mg, Unive rs (LOVENOX) 09-09 Subcutaneo ity of injection 15:00: us, DAILY, [place] 40 mg 00 First dose Medical on Wed09/09/22 at 0900, Until Discontinu ed, Routine potassium 2022-0 2022- No 20meq 20 mEq, IV Univers chloride in 09-09 Piggyback, i ty of water (KCL) 12:00: 19:59 Q2H, 4 [place] 20 mEq/100 00 :00 doses, Medical mL RTU IVPB First dose Br anch 20 mEq on Wed09/09/22 at 0600, Last dose on Wed09/09/22 at 1200, 100 mL ARIPiprazol 3-0 Yes 10mg 10 mg, Univ ers e (ABILIFY) 2 Oral, QHS, it y of tablet 10 03:00: First dose [place] mg 00 on Wed [facility] 09/08/22 at Branch 2100, Until Discontinu ed, Routine ARIPiprazol 3-0 Yes 10mg 10 mg, Univ ers e (ABILIFY) 2 Oral, QHS, it y of tablet 10 03:00: First dose [place] mg 00 on [facility] 09/08/22 at Branch 2100, Until Discontinu ed, Routine busPIRone 2022-0 Yes 5mg 5 mg, Univers (BUSPAR) 09-09 Oral, BID, ity o f tablet 5 mg 02:00: First dose 00 on [facility] 09/08/22 at [place] 1999, Until Discontinu ed, Routine busPIRone 2022-0 Yes 5mg 5 mg, Univers (BUSPAR) 2 Oral, BID, ity o f tablet 5 mg 02:00: First dose on [facility] 09/08/22 at [place] 1999, Until Discontinu ed, Routine methocarbam 2022- No 1000mg 1,000 mg, Univers oL 09-08 Intravenou ity of (ROBAXIN) 20:00: 17:03 s, Q8H, [place] injection 00 :57 First dose Medi [place] 1,000 mg on [facility] 09/08/22 at 1400, Until Discontinu ed, Routine acetaminoph 2022- No 1000mg 1,000 mg, Univers en ADULT 09-08 IV ity of (OFIRMEV) 20:00: 11:20 Infusion, [place] injection 00 :00 at 400 Medical 1,000 mg mL/hr Branch Administer over 15 Minutes, Q8H, 3 doses, First dose on Wed09/08/22 at 1400, Last dose on Wed09/09/22 at 0600, Routine
Indicatio n: Perioperat kelsey Patient lactated No 1000mL at 100 Univ ers ringers IV 09-08 mL/hr, ity of infusion 19:45: 00:35 1,000 mL, [place] 1,000 mL 00 :34 IV Medical Infusion, Branch CONTINUOUS , Starting on Wed09/08/22 at 1345, Until Wed09/09/22 at 1835, Routine pantoprazol 2022- No 40mg 40 mg, Uni vers e 09-08 Slow IV ity of (PROTONIX) 18:45: 17:03 Push, [place] injection 00 :57 Q24H, 3 Medical 40 mg doses, Branch First dose on Wed09/08/22 at 1245, Last dose on Wed09/10/22 at 1245 morpHINE (2 2022-0 Yes 2mg 2 mg, Slow Univers mg/mL) 09-08 IV Push, ity of injection 2 18:43: Q4HPRN, [place] mg 14 Starting Medical on [facility] 09/08/22 at 1243, Until Discontinu ed, Routine, Pain (scale 7-10) morpHINE (2 2022-0 Yes 2mg 2 mg, Slow Univers mg/mL) 09-08 IV Push, ity of injection 2 18:43: Q4HPRN, [place] mg 14 Starting Medical on Wed [place] 09/08/22 at 1243, Until Discontinu ed, Routine, Pain (scale 7-10) metroNIDAZO 2022- No 500mg 500 mg, IV Univers LE in NaCl 09-08 Infusion, ity of (iso-os) 18:42: 00:35 Q8H ABX, [place] (FLAGYL 00 :34 42 doses, Medical I.V.) RTU First dose Bran ch IV infusion on Wed 500 mg 09/08/22 at 1245, Last dose on Wed09/22/22 at 0445, Administer over 60 Minutes, 100 mL
Reas on for Anti-Infec tive: Documented Infection& lt;br>Docu mented Infection Site: Abdominal< br>Duratio n of Therapy: 14 days levoFLOXaci 2022- No 750mg 750 mg, IV Univers n in D5W 09-08 Piggyback, ity of (LEVAQUIN) 18:42: 00:35 [place] 100 [place] 750 mg/150 00 :34 mL/hr Medical mL Administer Branch Piggyback over 90 750 mg Minutes, Q24H ABX, 14 doses, First dose on Wed09/08/22 at 1245, Last dose on Wed09/21/22 at 1245, WAGNER
Re ason for Anti-Infec tive: Documented Infection< br>Documen roberta Infection Site: Abdominal< br>Duratio n of Therapy: 14 days proMETHazin 2022- No 12.5mg 12.5 mg, Univers e 09-08 IV ity of (PHENERGAN) 17:15: 18:49 Piggyback, [place] 12.5 mg in 00 :00 at 200 Medical NS 50 mL IV mL/hr [place] piggyback Administer (CNR) over 15 Minutes, ONCE, 1 dose, On Wed09/08/22 at 1115, WAGENR morpHINE (4 No 4mg 4 mg, Slow Univers mg/mL) 09-08 IV Push, ity of injection 4 17:15: 17:48 [place]CE, 1 [place] mg 00 :00 dose, On [facility] 09/08/22 at 1115, STAT KCL 2022- No 20meq 20 mEq, Univers (KLOR-CON 09-08 Oral, ity of M20) tablet 17:15: 18:26 [place] 20 mEq 00 :00 dose, On [facility] 09/08/22 at 1115, WAGNER NaCl 0.9% 2022- No 1000mL at 999 Uni vers (NS) IV 09-08 mL/hr, ity of infusion 16:45: 17:45 [place] 1,000 mL 00 :00 s, ONCE, 1 Medic al dose, On [facility] 09/08/22 at 1045, Routine FENTanyl PF No 50ug 50 mcg, Un carline (SUBLIMAZE 09-08 Slow IV ity o f (PF)) 16:45: 15:47 Push, [place] injection 00 :00 ONCE, 1 Medical 50 mcg dose, On [facility] 09/08/22 at 1045, Routine dicyclomine No 20mg 20 mg, Uni vers (BENTYL) 09-08 Oral, ity of tablet 20 15:45: 16:50 ONCE, 1 [place] mg 00 :00 dose, On [facility] 09/08/22 at 0945, WAG[place] famotidine No 20mg 20 mg, Univ ers (PEPCID 09-08 Slow IV ity of (PF)) 15:45: 15:48 Push, [place] injection 00 :00 ONCE, 1 Medical 20 mg dose, On [facility] 09/08/22 at 0945, [place]AG[place] ondansetron 2022- No 4mg 4 mg, Slow Univers (ZOFRAN 09-08 IV Push, ity of (PF)) 15:45: 15:49 ONCE, 1 [place] injection 4 00 :00 dose, On Medi ash[place] mg Tue Branch 09/08/22 at 0945, [place]AG[place] FLUoxetine 2022-0 Yes 10mg 10 mg. Unive rs 10 mg 1-17 ity of capsule 00:00: [place] [address] Medical Branch busPIRone 2022-0 Yes 10mg Take 10 mg Un carline 10 mg 1-17 by mouth ity of tablet 00:00: in the [place] [address] morning Medical and 10 mg Branch in the evening. FLUoxetine 2022-0 Yes 10mg 10 mg. Unive rs 10 mg 1-17 ity of capsule 00:00: [place] [address] Medical Branch busPIRone 2022-0 Yes 10mg Take 10 mg Un carline 10 mg 1-17 by mouth ity of tablet 00:00: in the [place] [address] morning Medical and 10 mg Branch in the evening. TAKE 1 2021-0 No 25 TABLET 8-02 DAILY. 00:00: 00 Dose 2021-0 No Unknown 8-02 00:00: 00 TAKE 1 2021-0 No 5 TABLET 8-02 DAILY. 00:00: 00 TAKE 1 2-0 No 25 TABLET 8-02 DAILY. 00:00: 00 TAKE 1 2-0 No TABLET 8-02 DAILY. 00:00: 00 Dose 2-0 No Unknown 8-02 00:00: 00 TAKE 1 2-0 No 25 TABLET 8-02 DAILY. 00:00: 00 Dose 2021-0 No Unknown 8-02 00:00: 00 TAKE 1 2-0 No 5 TABLET 8-02 DAILY. 00:00: 00 TAKE 1 2-0 No 25 TABLET 7-14 DAILY. 00:00: 00 TAKE 1 2-0 No 25 TABLET 7-14 DAILY. 00:00: 00 TAKE 1 2-0 No 25 TABLET 7-14 DAILY. 00:00: 00 TAKE 1 2-0 No 25 TABLET 7-14 DAILY. 00:00: 00 TAKE 1 2-0 No 25 TABLET 7-14 DAILY. 00:00: 00 bupropion 2020-1 No 1mg HCl 75 mg 2-02 tablet 00:00: 00 aripiprazol 1-1 No 5mg e 10 mg 2-02 disintegrat 00:00: ing tablet 00 bupropion 2020- No 1mg HCl 75 mg 2-02 tablet 00:00: 00 aripiprazol 1-1 No 5mg e 10 mg 2-02 disintegrat 00:00: ing tablet 00 bupropion 2020- No 1mg HCl 75 mg 2-02 tablet 00:00: 00 aripiprazol 1-1 No 5mg e 10 mg 2-02 disintegrat 00:00: ing tablet 00 bupropion 2020- No 1mg HCl 75 mg 2-02 tablet 00:00: 00 aripiprazol 1-1 No 5mg e 10 mg 2-02 disintegrat 00:00: ing tablet 00 bupropion 2020- No 1mg HCl 75 mg 2-02 tablet 00:00: 00 aripiprazol 1-1 No 5mg e 10 mg 2-02 disintegrat 00:00: ing tablet 00 Immunizations Ordered Filled Immunization Date Status Comments Sourc e Immunization Name Name MMR 2008-11-06 Completed University of 00:00:00 [facility] MMR 2008-11-06 Completed University of 00:00:00 [facility] MMR 2008-11-06 Completed University of 00:00:00 [facility] MMR 2008-11-06 Completed University of 00:00:00 [facility] MMR 2008-11-06 Completed University of 00:00:00 [facility] MMR 2008-11-06 Completed University of 00:00:00 [facility] MMR 2008-11-06 Completed University of 00:00:00 [facility] Influenza Virus 2008-04-19 Completed Universit y of Vaccine 00:00:00 [facility] Influenza Virus 2008-04-19 Completed Universit y of Vaccine 00:00:00 [facility] Influenza Virus 2008-04-19 Completed Universit y of Vaccine 00:00:00 [facility] Influenza Virus 2008-04-19 Completed Universit y of Vaccine 00:00:00 [facility] Influenza Virus 2008-04-19 Completed Universit y of Vaccine 00:00:00 [facility] Influenza Virus 2008-04-19 Completed Universit y of Vaccine 00:00:00 [facility] Influenza Virus 2008-04-19 Completed Universit y of Vaccine 00:00:00 [place] [facility] TD, NOS 2005-08-09 Completed University of 00:00:00 [place] [facility] TD, NOS 2005-08-09 Completed University of 00:00:00 [place] [facility] TD, NOS 2005-08-09 Completed University of 00:00:00 [place] [facility] TD, NOS 2005-08-09 Completed University of 00:00:00 [place] [facility] TD, NOS 2005-08-09 Completed University of 00:00:00 [place] [facility] TD, NOS 2005-08-09 Completed University of 00:00:00 [place] [facility] TD, NOS 2005-08-09 Completed University of 00:00:00 [facility] Vital Signs Vital Name Observation Time Observation Value Comments Source Systolic blood 2022-09-22 19:21:00 125 mm[Hg] Univer sity of pressure [facility] Diastolic blood 2022-09-22 19:21:00 72 mm[Hg] Unive rsity of [facility] Heart rate 2022-09-22 19:21:00 104 /min [facility] Body temperature 2022-09-22 19:21:00 36.39 Jennifer [facility] Body height 2022-09-22 19:21:00 157.5 cm [facility] Body weight 2022-09-22 19:21:00 91.627 kg [facility] BMI 2022-09-22 19:21:00 36.95 kg/m2 [facility] Oxygen saturation in 2022-09-22 19:21:00 98 /min University of Arterial blood by [facility] Pulse oximetry Branch Systolic blood 2022-09-10 17:15:00 114 mm[Hg] Univer sity of pressure [facility] Diastolic blood 2022-09-10 17:15:00 68 mm[Hg] Unive rsity of pressure [facility] Heart rate 2022-09-10 17:15:00 80 /min Universi ty [facility] [place] Body temperature 2022-09-10 17:15:00 36.67 Jennifer [facility] Respiratory rate 2022-09-10 17:15:00 16 /min [facility] Oxygen saturation in 2022-09-10 17:15:00 97 /min University of Arterial blood by [facility] Pulse oximetry Branch Body weight 2022-09-08 15:19:00 77.111 kg Universi ty [facility] [place] BMI 2022-09-08 15:19:00 30.35 kg/m2 Universi ty [facility] [place] Systolic blood 2022-09-10 00:45:00 106 mm[Hg] Univer sity of [facility] Diastolic blood 2022-09-10 00:45:00 62 mm[Hg] Unive rsity of [facility] Heart rate 2022-09-10 00:45:00 75 /min Universi ty of [facility] Body temperature 2022-09-10 00:45:00 36.39 Jennifer Univ ersity of [facility] Respiratory rate 2022-09-10 00:45:00 13 /min [facility] Oxygen saturation in 2022-09-10 00:45:00 94 /min [facility] Arterial blood by [facility] Pulse oximetry Branch Body weight 2022-09-08 15:19:00 77.111 kg Universi ty [facility] [place] [place] BMI 2022-09-08 15:19:00 30.35 kg/m2 [facility] BP Systolic 2022-05-05 15:47:00 130 mm[Hg] BP [...] 92.00 /min Respiratory Rate 2021-07-10 09:34:00 Procedures Procedure Date / Time Performing Clinician Source Performed CONSENT/REFUSAL FOR 2022-09-22 19:13:34 Doctor Unassigned, [facility] DIAGNOSIS AND TREATMENT [place] [facility] MAGNESIUM 2022-09-10 08:23:00 Maryann, [facility] COMP. METABOLIC PANEL 2022-09-10 08:23:00 Maryann, [facility] ([id number]) [facility] CBC WITHOUT DIFF 2022-09-10 08:23:00 Maryann, [facility] PHOSPHORUS 2022-09-10 08:23:00 Maryann, [facility] MAGNESIUM 2022-09-10 08:23:00 Maryann, [facility] COMP. METABOLIC PANEL 2022-09-10 08:23:00 Maryann, [facility] ([id number]) [facility] CBC WITHOUT DIFF 2022-09-10 08:23:00 Maryann, [facility] PHOSPHORUS 2022-09-10 08:23:00 [facility] LAPAROSCOPIC 2022-09-09 22:09:00 [facility] CHOLECYSTECTOMY [facility] LAPAROSCOPIC 2022-09-09 22:09:00 [facility] CHOLECYSTECTOMY [facility] MAGNESIUM 2022-09-09 09:58:00 [facility] HEPATIC FUNCTION PANEL 2022-09-09 09:58:00 Grant [facility] ([id number]) (ALB,T.PRO,BILI [facility] T,BU/BC,ALT,AST,ALK PHOS) BASIC METABOLIC PANEL (NA, 2022-09-09 09:58:00 Grant [facility] K, CL, CO2, GLUCOSE, BUN, [facility] CREATININE, [place]) CBC WITH DIFF 2022-09-09 09:58:00 Grant [facility] PHOSPHORUS 2022-09-09 09:58:00 Burns, [facility] MAGNESIUM 2022-09-09 09:58:00 Burns, [facility] HEPATIC FUNCTION PANEL 2022-09-09 09:58:00 Grant [facility] ([id number]) (ALB,T.PRO,BILI [facility] T,BU/BC,ALT,AST,ALK PHOS) BASIC METABOLIC PANEL (NA, 2022-09-09 09:58:00 Grant [facility] K, CL, CO2, GLUCOSE, BUN, [facility] CREATININE, [place]) CBC WITH DIFF 2022-09-09 09:58:00 Grant [facility] PHOSPHORUS 2022-09-09 09:58:00 Burns, [facility] POCT TEST 2022-09-08 16:54:00 Rudy Rios [facility] POCT TEST 2022-09-08 16:54:00 Rudy Rios [facility] URINALYSIS 2022-09-08 16:52:00 Rudy Rios [facility] URINE CULTURE 2022-09-08 16:52:00 Rudy Rios [facility] URINALYSIS 2022-09-08 16:52:00 Rudy Rios [facility] URINE CULTURE 2022-09-08 16:52:00 Rudy Rios [facility] US GALL BLADDER 2022-09-08 16:31:54 Rudy Rios [facility] US GALL BLADDER 2022-09-08 16:31:54 Rudy Rios [facility] COMP. METABOLIC PANEL 2022-09-08 15:43:00 Rudy Rios [facility] ([id number]) Medical Branch CBC WITH DIFF 2022-09-08 15:43:00 Rudy Rios [facility] LIPASE 2022-09-08 15:43:00 Rudy Rios [facility] COMP. METABOLIC PANEL 2022-09-08 15:43:00 Rudy Rios [facility] sity [facility] ([id number]) Medical Branch CBC WITH DIFF 2022-09-08 15:43:00 Rudy Rios [facility] LIPASE 2022-09-08 15:43:00 Rudy Rios [facility] CONSENT/REFUSAL FOR 2022-09-08 15:08:32 Doctor [facility]igned [facility] [place] [facility] CONSENT/REFUSAL FOR 2022-09-08 15:08:32 Doctor Unassigned, [facility] DIAGNOSIS AND TREATMENT [place] [facility] Plan of Care Planned Activity Planned Date Details Comments Source Goal Plan of Care Note [code = 23105-9] Goal Plan of Care Note [code = 20080-3] Goal Plan of Care Note [code = 48280-0] Goal Plan of Care Note [code = 17427-7] Goal Plan of Care Note [code = 13576-6] Goal Plan of Care Note [code = 78935-6] Goal Plan of Care Note [code = 27952-0] Goal Plan of Care Note [code = 97417-6] Goal Plan of Care Note [code = 83713-6] Goal Plan of Care Note [code = 48112-1] Goal Plan of Care Note [code = 31449-8] Goal Plan of Care Note [code = 94882-5] Goal Plan of Care Note [code = 37567-4] Goal Plan of Care Note [code = 98769-9] Goal Plan of Care Note [code = 80538-2] Goal Plan of Care Note [code = 61684-8] Goal Plan of Care Note [code = 46033-1] Goal Plan of Care Note [code = 47274-5] Goal Plan of Care Note [code = 63586-4] Goal Plan of Care Note [code = 94877-1] Goal Plan of Care Note [code = 25568-9] Goal Plan of Care Note [code = 65632-1] Goal Plan of Care Note [code = 78322-4] Goal Plan of Care Note [code = 58542-5] Goal Plan of Care Note [code = 45766-4] Goal Plan of Care Note [code = 49717-4] Goal Plan of Care Note [code = 09296-5] Goal Plan of Care Note [code = 40118-5] Goal Plan of Care Note [code = 28694-5] Goal Plan of Care Note [code = 24113-3] Goal Plan of Care Note [code = 01056-5] Goal Plan of Care Note [code = 70897-5] Goal Plan of Care Note [code = 31756-4] Goal Plan of Care Note [code = 29305-9] Goal Plan of Care Note [code = 60722-9] Goal Plan of Care Note [code = 52802-0] Goal Plan of Care Note [code = 01201-7] Goal Plan of Care Note [code = 83265-9] Goal Plan of Care Note [code = 69783-9] Goal Plan of Care Note [code = 82630-8] Goal Plan of Care Note [code = 90236-9] Goal Plan of Care Note [code = 17749-1] Goal Plan of Care Note [code = 32987-4] Goal Plan of Care Note [code = 09153-0] Goal Plan of Care Note [code = 05714-1] Goal Plan of Care Note [code = 22518-4] Goal Plan of Care Note [code = 91035-3] Goal Plan of Care Note [code = 67900-0] Goal Plan of Care Note [code = 57702-3] Goal Plan of Care Note [code = 60199-0] Goal Plan of Care Note [code = 73962-7] Goal Plan of Care Note [code = 85107-8] Goal Plan of Care Note [code = 09391-9] Encounters Start End Encounter Admission Attending Care Care Encounter Source Date/Time Date/Time Type Type Clinicians Facility Department ID 2023-01-25 2023-01-25 Outpatient COREY NICOLE [id number] [place] 08:09:14 08:09:14 [id number] F Miguel 2022-10-22 2022-10-22 Outpatient COREY NICOLE [id number] [place] 16:06:02 16:06:02 [id number] F Miguel 2022-09-22 2022-09-22 Office Service/[place], Surgery C UNIVERS IT 1.2.840.114 [id number] Univers 14:00:00 14:00:00 Visit Jm Moreland 350.1.13.10 ity of [place] [id number] [facility] 203 Branch 2022-09-22 2022-09-22 Outpatient R [facility] [id number] Univers 14:00:00 13:49:53 JM ity of [facility] 2022-09-22 2022-09-22 Orders Doctor MILI 1.2.840.114 [id number] Univers 00:00:00 00:00:00 Only Unassigned, AMARI 350.1.13.10 ity of [place] [facility] 4.2.7.2.686 [place] [id number] [facility] 009 Branch 2022-09-16 2022-09-16 Outpatient [facility] [id number] [place] 10:18:13 10:18:13 [id number] F Miguel 2022-09-11 2022-09-11 Transition CHYNA Stone 1.2.840.114 [id number] Univers 00:00:00 00:00:00 of Care Verito DIEZ 350.1.13.10 ity [place] [id number] [facility] 403 Branch 2022-09-08 2022-09-10 Hospital Rudy Rios 1.2.840.11 [id number] Univers 09:20:00 18:13:00 Encounter Mellisa Fonseca 350.1.13.1 0 [facility] 4.2.7.2.686 [place] [id number] [facility] 091 Branch 2022-09-08 2022-09-10 Inpatient X KATHERIN TANNER [facility] [id number] Univers 09:20:00 18:13:00 ity of [facility] 2022-09-09 2022-09-09 Surgery COLTON Smiley 1.2.840.114 [id number] Univers 16:00:00 18:52:00 Sathya FITZPATRICK 350.1.13.10 [facility] 4.2.7.2.686 [place] [id number] [address] 2022-05-05 2022-05-05 Outpatient [id number] [id number]-a 00:00:00 00:00:00 Visit cef9-4f46 ef9-4f46-b -l2p2-77v 4w9-92j5eo 3uv8w4305 4q8374 2022-03-24 2022-03-24 Outpatient [id number] q76qi1-p 00:00:00 00:00:00 Visit a4w0-987q 9c1-882m-2 -9eea-2db eea-2db1e3 5f0k0s5in f7b7fe 2022-03-10 2022-03-10 Outpatient [id number] [id number] 00:00:00 00:00:00 Visit 51ca-4550 1ca-4550-b -ka70-6ok f73-2hfe7g c7q7egr1t 3fde1c 2022-02-23 2022-02-23 Outpatient hi6z6x36- [id number] ef 6i3i39-3 00:00:00 00:00:00 Visit 37z5-5t64 1e7-7a33-k -i9ih-q3r 7fc-a5bf60 q35xeg93l afb74c 2022-02-19 2022-02-19 Outpatient 2lvw90of- [id number] wv57ye-g 00:00:00 00:00:00 Visit uw18-88o4 i78-66q5-u -n909-s14 [id number] 4875t4g8e 3a3e6a Results Test Description Test Time Test Comments Results Result Comments Source CT/NG, NAAT, URINE 2023-01-26 14:05:47 Test Item Value Reference Range Interpretation Comme nts CHLAMYDIA, NAAT, URINE (test NEGATIVE NEGATIVE Testing is performed with Kiera code = 60237) RAY 6800/880 0 systems usingreal-time polymerase chain reaction (PCR) method. A negative result does not exclude low level infection, spec imensampling error, or collection e rror. GONORRHEA, NAAT, URINE (test NEGATIVE NEGATIVE Testing is performed with Kiera code = 72306) RAY 6800/880 0 systems usingreal-time polymerase chain reaction (PCR) method. A negative result does not exclude low level infection, spec imensampling error, or collection e rror. HIV 1/2 4TH GEN, RFLX [id number] 03:39:31 Test Item Value Reference Range Interpretation Comments HIV 1/2 4TH GEN, RFLX CONF (test NON-REACTIVE NON-REACTIVE code = 3514) HEPATITIS PANEL, [id number] 03:39:31 Test Item Value Reference Range Interpretation Comments HEPATITIS A IgM (test NON-REACTIVE NON-REACTIVE code = 90797) HEPATITIS B CORE IgM NON-REACTIVE NON-REACTIVE (test code = 4644) HEPATITIS B SURF AG NON-REACTIVE NON-REACTIVE (test code = 2739) HEPATITIS C ANTIBODY NON-REACTIVE NON-REACTIVE (test code = 4675) INTERPRETATION (NOTE) Hepatitis A HEPATITIS A: (test code sero logy shows no = 2552) evidence of acu te hepatitis A. INTERPRETATION (NOTE) Hepatitis B HEPATITIS B: (test code sero logy shows no = 80379) evidence of acu te hepatitis B and no indication of exposure to hepatitis B vir us in the previous anthony eight months. INTERPRETATION (NOTE) Hepatitis C HEPATITIS C: (test code sero logy shows no = 16547) evidence of exposure to hepatitisC viru s at this time. I t can take up to 12 months after exposure tothe hepatitis C vir us for antibodies to become detectab le in the blood in certain patient s. RPR REFLEX TO T. PALLIDUM - [id number] 03:32:09 Test Item Value Reference Range Interpretation Comments RPR (test code = NON-REACTIVE NON-REACTIVE 01939) RPR TITER (test NOT INDIC. NOT INDIC. UNLESS OTHE RWISE code = 3500) TITER INDICATED, ALL TESTING PERFORMED AT [facility] [address] [place] [address] 4 LABORATORY DIRE CTOR: NANCY JORGE M.D. CLIA NUMBER [id number] [place] [id number] 09:14:43 Test Item Value Reference Range Interpretation Comments PHOSPHORUS (test code = 3391303305) 1.9 mg/dL 2.5-5.0 L Lab Interpretation (test code = Abnormal 60911-8) [facility] 09:14:43 Test Item Value Reference Range Interpretation Comments MAGNESIUM (test code = 3937007544) 1.9 mg/dL 1.7-2.4 Lab Interpretation (test code = Normal 72517-1) [facility] 09:14:43 Test Item Value Reference Range Interpretation Comments PHOSPHORUS (test code = 2750826321) 1.9 mg/dL 2.5-5.0 L Lab Interpretation (test code = Abnormal 58928-4) [facility]43 Test Item Value Reference Range Interpretation Comments MAGNESIUM (test code = 8028135033) 1.9 mg/dL 1.7-2.4 Lab Interpretation (test code = Normal 05707-7) [facility]. METABOLIC PANEL ([id number])2022-09-10 09:14:42 Test Item Value Reference Range Interpretation Comments NA (test code = 137 mmol/L 135-145 2148963823) K (test code = 3.2 mmol/L 3.5-5.0 L 0747121093) CL (test code = 106 mmol/L 98-108 2419873728) CO2 TOTAL (test code = 27 mmol/L 23-31 0441786999) AGAP (test code = 4 2-16 8223142335) BUN (test code = 7 mg/dL 7-23 2642990913) GLUCOSE (test code = 146 mg/dL 70-110 H 7579335612) CREATININE (test code = 0.71 mg/dL 0.50-1.04 1880470528) TOTAL BILI (test code = 0.3 mg/dL 0.1-1.4 3508053119) CALCIUM (test code = 8.1 mg/dL 8.6-10.6 L 7052072473) T PROTEIN (test code = 7.0 g/dL 6.3-8.2 6607476437) ALBUMIN (test code = 3.4 g/dL 3.5-5.0 L 5904584939) ALK PHOS (test code = 116 U/L 34-122 7457562216) ALTv (test code = 78 U/L 5-35 H 1742-6) AST(SGOT) (test code = 107 U/L 13-40 H 8546437843) eGFR (test code = 92.6 mL/min/1.73m2 8464276322) DIANNE (test code = DIANNE) Association of Glomerular Filtration Rate (GFR) and Staging of Kidney Disease* + --+ --+ ------+| GFR (mL/min/1.73 m2) ?| With Kidney Damage ?| ?Without Kidney Damage+ --------+ --------+ +| ?>90 ?| ?Stage one ?| ? Normal ?+ ---+ ---+ -------+| ?60-89 ?| ?Stage two ?| ? Decreased GFR ? + --+ --+ ------+| ?30-59 ?| ?Stage three ?| ? Stage three ? + --+ --+ ------+| ?15-29 ?| ?Stage four ? | ? Stage four ?+ ---+ ---+ -------+| ?<15 (or dialysis) ? ?| ?Stage five ? | ? Stage five ?+ ---+ ---+ -------+ *Each stage assumes the associated GFR level has been in effect for at least three months. ?Stages 1 to 5, with or without kidney disease, indicate chronic kidney disease. Notes: Determination of stages one and two (with eGFR >59mL/min/1.73 m2) requires estimation of kidney damage for at least three months as defined by structural or functional abnormalities of the kidney, manifested by either:Pathological abnormalities or Markers of kidney damage (including abnormalities in the composition of the blood or urine or abnormalities in imaging tests). Lab Interpretation Abnormal (test code = 78510-3) [facility]. METABOLIC PANEL ([id number])2022-09-10 09:14:42 Test Item Value Reference Range Interpretation Comments NA (test code = 137 mmol/L 135-145 8448179253) K (test code = 3.2 mmol/L 3.5-5.0 L 1898712159) CL (test code = 106 mmol/L 98-108 7188335544) CO2 TOTAL (test code = 27 mmol/L 23-31 6430891656) AGAP (test code = 4 2-16 9244459737) BUN (test code = 7 mg/dL 7-23 5013324935) GLUCOSE (test code = 146 mg/dL 70-110 H 7695940841) CREATININE (test code = 0.71 mg/dL 0.50-1.04 9244948971) TOTAL BILI (test code = 0.3 mg/dL 0.1-1.7 8648568736) CALCIUM (test code = 8.1 mg/dL 8.6-10.6 L 5232672936) T PROTEIN (test code = 7.0 g/dL 6.3-8.2 7740089644) ALBUMIN (test code = 3.4 g/dL 3.5-5.0 L 4614032735) ALK PHOS (test code = 116 U/L 34-122 3305467592) ALTv (test code = 78 U/L 5-35 H 1742-6) AST(SGOT) (test code = 107 U/L 13-40 H 5125892724) eGFR (test code = 92.6 mL/min/1.73m2 9068693459) DIANNE (test code = DIANNE) Association of Glomerular Filtration Rate (GFR) and Staging of Kidney Disease* + --+ --+ ------+| GFR (mL/min/1.73 m2) ?| With Kidney Damage ?| ?Without Kidney Damage+ --------+ --------+ +| ?>90 ?| ?Stage one ?| ? Normal ?+ ---+ ---+ -------+| ?60-89 ?| ?Stage two ?| ? Decreased GFR ? + --+ --+ ------+| ?30-59 ?| ?Stage three ?| ? Stage three ? + --+ --+ ------+| ?15-29 ?| ?Stage four ? | ? Stage four ?+ ---+ ---+ -------+| ?<15 (or dialysis) ? ?| ?Stage five ? | ? Stage five ?+ ---+ ---+ -------+ *Each stage assumes the associated GFR level has been in effect for at least three months. ?Stages 1 to 5, with or without kidney disease, indicate chronic kidney disease. Notes: Determination of stages one and two (with eGFR >59mL/min/1.73 m2) requires estimation of kidney damage for at least three months as defined by structural or functional abnormalities of the kidney, manifested by either:Pathological abnormalities or Markers of kidney damage (including abnormalities in the composition of the blood or urine or abnormalities in imaging tests). Lab Interpretation Abnormal (test code = 86079-6) [facility] WITHOUT [id number] 08:35:57 Test Item Value Reference Range Interpretation Comments WBC (test code = 6690-2) 13.10 See_Comment H [A utomated message] The system [employer] generated this result transmit roberta reference range : 4.30 - 11.10 10*3/?L. The reference range was not used to interpret this result as normal/abnormal . RBC (test code = 789-8) 3.91 See_Comment L [Au tomated message] The system [employer] generated this result transmit roberta reference range : 3.93 - 5.25 10* 6/?L. The reference r svitlana was not used to interpret this result as normal/abnormal . HGB (test code = 718-7) 10.1 g/dL 11.6-15.0 L HCT (test code = 4544-3) 31.2 % 35.7-45.2 L MCH (test code = 785-6) 25.8 pg 25.9-32.8 L MCV (test code = 787-2) 79.8 fL 80.6-95.5 L MCHC (test code = 786-4) 32.4 g/dL 31.6-35.1 PLT (test code = 777-3) 289 See_Comment [Au tomated message] The system [employer] generated this result transmit roberta reference range : 166 - 358 10*3/?L. The reference range was not used to interpret this result as normal/abnormal . MPV (test code = 9.2 fL 9.5-12.9 L 70579-6) RDW-CV (test code = 13.8 % 12.0-15.5 788-0) RDW-SD (test code = 39.5 fL 39.0-49.9 94612-5) NRBC x10^3 (test code = See_Comment [Au tomated message] [id number]) The system [employer] generated this result transmit roberta reference range : 10*3/?L. The reference range was not used to interpret this result as normal/abnormal . NRBC/100 WBC (test code 0.0 See_Comment [Au tomated message] = 0756851430) The system [employer] [facility] generated this result transmit roberta reference range : 0.0 - 10.0 /100 WBC s. The reference r svitlana was not used to interpret this result as normal/abnormal . IPF % (test code = 5898872872) Lab Interpretation (test Abnormal code = 42139-0) [facility] WITHOUT [id number] 08:35:57 Test Item Value Reference Range Interpretation Comments WBC (test code = 6690-2) 13.10 See_Comment H [A utomated message] The system [employer] generated this result transmit roberta reference range : 4.30 - 11.10 10*3/?L. The reference range was not used to interpret this result as normal/abnormal . RBC (test code = 789-8) 3.91 See_Comment L [Au tomated message] The system [employer] generated this result transmit roberta reference range : 3.93 - 5.25 10* 6/?L. The reference r svitlana was not used to interpret this result as normal/abnormal . HGB (test code = 718-7) 10.1 g/dL 11.6-15.0 L HCT (test code = 4544-3) 31.2 % 35.7-45.2 L MCH (test code = 785-6) 25.8 pg 25.9-32.8 L MCV (test code = 787-2) 79.8 fL 80.6-95.5 L MCHC (test code = 786-4) 32.4 g/dL 31.6-35.1 PLT (test code = 777-3) 289 See_Comment [Au tomated message] The system [employer] generated this result transmit roberta reference range : 166 - 358 10*3/?L. The reference range was not used to interpret this result as normal/abnormal . MPV (test code = 9.2 fL 9.5-12.9 L 77402-9) RDW-CV (test code = 13.8 % 12.0-15.5 788-0) RDW-SD (test code = 39.5 fL 39.0-49.9 56609-1) NRBC x10^3 (test code = See_Comment [Au tomated message] 5932624158) The system [employer] h generated this result transmit roberta reference range : 10*3/?L. The reference range was not used to interpret this result as normal/abnormal . NRBC/100 WBC (test code 0.0 See_Comment [Au tomated message] = 7158405357) The system [employer] generated this result transmit roberta reference range : 0.0 - 10.0 /100 WBC s. The reference r svitlana was not used to interpret this result as normal/abnormal . IPF % (test code = 2898660708) Lab Interpretation (test Abnormal code = 78149-7) [facility] METABOLIC PANEL (NA, K, CL, CO2, GLUCOSE, BUN, CREATININE, CA)2022-09-09 10:50:05 Test Item Value Reference Range Interpretation Comments NA (test code = 137 mmol/L 135-145 7384870644) K (test code = 2.7 mmol/L 3.5-5.0 LL 0464232395) CL (test code = 103 mmol/L 98-108 8557466953) CO2 TOTAL (test code = 29 mmol/L 23-31 5109496903) AGAP (test code = 5 2-16 1694943241) BUN (test code = 9 mg/dL 7-23 4386106642) GLUCOSE (test code = 110 mg/dL 70-110 1382883029) CREATININE (test code = 0.74 mg/dL 0.50-1.04 8665708660) CALCIUM (test code = 7.9 mg/dL 8.6-10.6 L 9305190486) eGFR (test code = 88.3 mL/min/1.73m2 4873096139) DIANNE (test code = DIANNE) Association of Glomerular Filtration Rate (GFR) and Staging of Kidney Disease* + --+ --+ ------+| GFR (mL/min/1.73 m2) ?| With Kidney Damage ?| ?Without Kidney Damage+ --------+ --------+ +| ?>90 ?| ?Stage one ?| ? Normal ?+ ---+ ---+ -------+| ?60-89 ?| ?Stage two ?| ? Decreased GFR ? + --+ --+ ------+| ?30-59 ?| ?Stage three ?| ? Stage three ? + --+ --+ ------+| ?15-29 ?| ?Stage four ? | ? Stage four ?+ ---+ ---+ -------+| ?<15 (or dialysis) ? ?| ?Stage five ? | ? Stage five ?+ ---+ ---+ -------+ *Each stage assumes the associated GFR level has been in effect for at least three months. ?Stages 1 to 5, with or without kidney disease, indicate chronic kidney disease. Notes: Determination of stages one and two (with eGFR >59mL/min/1.73 m2) requires estimation of kidney damage for at least three months as defined by structural or functional abnormalities of the kidney, manifested by either:Pathological abnormalities or Markers of kidney damage (including abnormalities in the composition of the blood or urine or abnormalities in imaging tests). Lab Interpretation Abnormal (test code = 65934-9) [facility] METABOLIC PANEL (NA, K, CL, CO2, GLUCOSE, BUN, CREATININE, CA)2022-09-09 10:50:05 Test Item Value Reference Range Interpretation Comments NA (test code = 137 mmol/L 135-145 6979775445) K (test code = 2.7 mmol/L 3.5-5.0 LL 4835394299) CL (test code = 103 mmol/L 98-108 9976461548) CO2 TOTAL (test code = 29 mmol/L 23-31 3377077210) AGAP (test code = 5 2-16 5714560540) BUN (test code = 9 mg/dL 7-23 0334446236) GLUCOSE (test code = 110 mg/dL 70-110 1896395715) CREATININE (test code = 0.74 mg/dL 0.50-1.04 3970278347) CALCIUM (test code = 7.9 mg/dL 8.6-10.6 L 9483246266) eGFR (test code = 88.3 mL/min/1.73m2 0753409205) DIANNE (test code = DIANNE) Association of Glomerular Filtration Rate (GFR) and Staging of Kidney Disease* + --+ --+ ------+| GFR (mL/min/1.73 m2) ?| With Kidney Damage ?| ?Without Kidney Damage+ --------+ --------+ +| ?>90 ?| ?Stage one ?| ? Normal ?+ ---+ ---+ -------+| ?60-89 ?| ?Stage two ?| ? Decreased GFR ? + --+ --+ ------+| ?30-59 ?| ?Stage three ?| ? Stage three ? + --+ --+ ------+| ?15-29 ?| ?Stage four ? | ? Stage four ?+ ---+ ---+ -------+| ?<15 (or dialysis) ? ?| ?Stage five ? | ? Stage five ?+ ---+ ---+ -------+ *Each stage assumes the associated GFR level has been in effect for at least three months. ?Stages 1 to 5, with or without kidney disease, indicate chronic kidney disease. Notes: Determination of stages one and two (with eGFR >59mL/min/1.73 m2) requires estimation of kidney damage for at least three months as defined by structural or functional abnormalities of the kidney, manifested by either:Pathological abnormalities or Markers of kidney damage (including abnormalities in the composition of the blood or urine or abnormalities in imaging tests). Lab Interpretation Abnormal (test code = 49540-7) [facility]35 Test Item Value Reference Range Interpretation Comments MAGNESIUM (test code = 2526080592) 1.9 mg/dL 1.7-2.4 Lab Interpretation (test code = Normal 50056-4) [facility] 10:43:35 Test Item Value Reference Range Interpretation Comments PHOSPHORUS (test code = 9710535606) 3.2 mg/dL 2.5-5.0 Lab Interpretation (test code = Normal 71894-1) [facility]72844[facility] (ALB,T.PRO,BILI T,BU/BC,ALT,AST,ALK PHOS)2022-09-09 10:43:35 Test Item Value Reference Range Interpretation Comments TOTAL BILI (test code = 0708585650) 0.3 mg/dL 0.1-1.1 BILI UNCON (test code = 7051999435) 0.0 mg/dL 0.1-1.1 L BILI CONJ (test code = 5308233706) 0.0 mg/dL 0.0-0.3 T PROTEIN (test code = 4915032913) 6.7 g/dL 6.3-8.2 ALBUMIN (test code = 3086211506) 3.3 g/dL 3.5-5.0 L ALK PHOS (test code = 9246530950) 108 U/L 34-122 ALTv (test code = 1742-6) 41 U/L 5-35 H AST(SGOT) (test code = 1494823471) 42 U/L 13-40 H Lab Interpretation (test code = Abnormal 20661-2) [facility] 10:43:35 Test Item Value Reference Range Interpretation Comments MAGNESIUM (test code = 0480601826) 1.9 mg/dL 1.7-2.4 Lab Interpretation (test code = Normal 63373-9) [facility]01 10:43:35 Test Item Value Reference Range Interpretation Comments PHOSPHORUS (test code = 3880056587) 3.2 mg/dL 2.5-5.0 Lab Interpretation (test code = Normal 72115-6) [facility] (86663[facility] (ALB,T.PRO,BILI T,BU/BC,ALT,AST,ALK PHOS)2022-09-09 10:43:35 Test Item Value Reference Range Interpretation Comments TOTAL BILI (test code = 9949339973) 0.3 mg/dL 0.1-1.1 BILI UNCON (test code = 8722988950) 0.0 mg/dL 0.1-1.1 L BILI CONJ (test code = 8403328188) 0.0 mg/dL 0.0-0.3 T PROTEIN (test code = 6232284076) 6.7 g/dL 6.3-8.2 ALBUMIN (test code = 7569773595) 3.3 g/dL 3.5-5.0 L ALK PHOS (test code = 5731531487) 108 U/L 34-122 ALTv (test code = 1742-6) 41 U/L 5-35 H AST(SGOT) (test code = 4090554648) 42 U/L 13-40 H Lab Interpretation (test code = Abnormal 15427-9) [facility] WITH [id number] 10:16:12 Test Item Value Reference Range Interpretation Comments WBC (test code = 6.10 See_Comment [Automated 6690-2) message] The sy stem which generated this result transmitted reference range : 4.30 - 11.10 10*3/?L. The reference range was not used to interpret this result as normal/abnormal . RBC (test code = 3.77 See_Comment L [Automated 789-8) message] The sy stem which generated this result transmitted reference range : 3.93 - 5.25 10*6/?L. The reference range was not used to interpret this result as normal/abnormal . HGB (test code = 9.6 g/dL 11.6-15.0 L 718-7) HCT (test code = 30.2 % 35.7-45.2 L 4544-3) MCV (test code = 80.1 fL 80.6-95.5 L 787-2) MCH (test code = 25.5 pg 25.9-32.8 L 785-6) MCHC (test code = 31.8 g/dL 31.6-35.1 786-4) RDW-SD (test code = 39.8 fL 39.0-49.9 93806-6) RDW-CV (test code = 13.8 % 12.0-15.5 788-0) PLT (test code = 281 See_Comment [Automated 777-3) message] The sy stem which generated this result transmitted reference range : 166 - 358 10*3/ ?L. The reference r svitlana was not used to interpret this result as normal/abnormal . MPV (test code = 9.3 fL 9.5-12.9 L 79346-6) NRBC/100 WBC (test 0.0 See_Comment [Automat ed code = 5104131496) message] The system which generated this result transmitted reference range : 0.0 - 10.0 /100 WBCs. The refer ence range was not u sed to interpret th is result as normal/abnormal . NRBC x10^3 (test code See_Comment [Auto mated = 7824641154) message] The s ystem which generated this result transmitted reference range : 10*3/?L. The reference range was not used to interpret this result as normal/abnormal . GRAN MAT (NEUT) % 44.6 % (test code = 770-8) IMM GRAN % (test code 0.50 % = 0995543345) LYMPH % (test code = 46.6 % 736-9) MONO % (test code = 4.6 % 5905-5) EOS % (test code = 3.0 % 713-8) BASO % (test code = 0.7 % 706-2) GRAN MAT x10^3(ANC) 2.73 10*3/uL 1.88-7.09 (test code = 5522115557) IMM GRAN x10^3 (test 0.03 10*3/uL 0.00-0.06 code = 9648392794) LYMPH x10^3 (test code 2.84 10*3/uL 1.32-3.29 = 731-0) MONO x10^3 (test code 0.28 10*3/uL 0.33-0.92 L = 742-7) EOS x10^3 (test code = 0.18 10*3/uL 0.03-0.39 711-2) BASO x10^3 (test code 0.04 10*3/uL 0.01-0.07 = 704-7) Lab Interpretation Abnormal (test code = 05610-8) [facility] WITH [id number] 10:16:12 Test Item Value Reference Range Interpretation Comments WBC (test code = 6.10 See_Comment [Automated 6690-2) message] The sy stem which generated this result transmitted reference range : 4.30 - 11.10 10*3/?L. The reference range was not used to interpret this result as normal/abnormal . RBC (test code = 3.77 See_Comment L [Automated 789-8) message] The sy stem which generated this result transmitted reference range : 3.93 - 5.25 10*6/?L. The reference range was not used to interpret this result as normal/abnormal . HGB (test code = 9.6 g/dL 11.6-15.0 L 718-7) HCT (test code = 30.2 % 35.7-45.2 L 4544-3) MCV (test code = 80.1 fL 80.6-95.5 L 787-2) MCH (test code = 25.5 pg 25.9-32.8 L 785-6) MCHC (test code = 31.8 g/dL 31.6-35.1 786-4) RDW-SD (test code = 39.8 fL 39.0-49.9 68214-2) RDW-CV (test code = 13.8 % 12.0-15.5 788-0) PLT (test code = 281 See_Comment [Automated 777-3) message] The sy stem which generated this result transmitted reference range : 166 - 358 10*3/ ?L. The reference r svitlana was not used to interpret this result as normal/abnormal . MPV (test code = 9.3 fL 9.5-12.9 L 19659-2) NRBC/100 WBC (test 0.0 See_Comment [Automat ed code = 3417116627) message] The system which generated this result transmitted reference range : 0.0 - 10.0 /100 WBCs. The refer ence range was not u sed to interpret th is result as normal/abnormal . NRBC x10^3 (test code See_Comment [Auto mated = 0853066267) message] The s ystem which generated this result transmitted reference range : 10*3/?L. The reference range was not used to interpret this result as normal/abnormal . GRAN MAT (NEUT) % 44.6 % (test code = 770-8) IMM GRAN % (test code 0.50 % = 3740287928) LYMPH % (test code = 46.6 % 736-9) MONO % (test code = 4.6 % 5905-5) EOS % (test code = 3.0 % 713-8) BASO % (test code = 0.7 % 706-2) GRAN MAT x10^3(ANC) 2.73 10*3/uL 1.88-7.09 (test code = 7969685107) IMM GRAN x10^3 (test 0.03 10*3/uL 0.00-0.06 code = 9136097975) LYMPH x10^3 (test code 2.84 10*3/uL 1.32-3.29 = 731-0) MONO x10^3 (test code 0.28 10*3/uL 0.33-0.92 L = 742-7) EOS x10^3 (test code = 0.18 10*3/uL 0.03-0.39 711-2) BASO x10^3 (test code 0.04 10*3/uL 0.01-0.07 = 704-7) Lab Interpretation Abnormal (test code = 32664-5) [facility] [id number] 16:54:00 Test Item Value Reference Range Interpretation Comments POCT PREG (test code = 1605) Negative On board controls acceptable with Pass C Line (test code = 3574) POCT PREG LOT # (test code = 3575) [id number] POCT PREG TEST DATE (test 2023-11-07 code = 3576) Lab Interpretation (test code = Normal 05472-7) [facility] [id number] 16:54:00 Test Item Value Reference Range Interpretation Comments POCT PREG (test code = 1605) Negative On board controls acceptable with Pass C Line (test code = 3574) POCT PREG LOT # (test code = 3575) [id number] POCT PREG TEST DATE (test 2023-11-07 code = 3576) Lab Interpretation (test code = Normal 31465-9) [facility] [id number] 05:23:56 Test Item Value Reference Range Interpretation Comments HEMOGLOBIN A1c (test code = 93775) 5.7 % 4.2-5.6 H TSH, THIRD [id number] 04:36:22 Test Item Value Reference Range Interpretation Comments TSH, THIRD 2.660 UIU/ML 0.400-4.100 UNLESS OTHERWI SE GENERATION (test INDICATED, ALL TESTING code = 2821) PERFORMED [facility], [facility]. [address] [place] [id number] [place] [address] DIRECTOR: EUGENIE GRANADOS M.D. CLIA NUMBER [id number] CAP ACCREDITATION N O. [id number] LIPID [id number] 04:07:36 Test Item Value Reference Range Interpretation [...] MOREINFORMATION , SEE CLIENT ANNOUNCE MENT AT [email or web address] RISK RATIO LDL/HDL 4.08 RATIO <3.22 H (test code = 2238) COMPREHENSIVE METABOLIC [id number] 04:07:36 Test Item Value Reference Range Interpretation Comments GLUCOSE (test code = 105 MG/DL 70-99 H 2216) BUN (test code = 4 MG/DL 6-20 L 2207) CREATININE (test 0.80 MG/DL 0.60-1.30 code = 2214) eGFR (2020 CKD-EPI) 98 ML/MIN/1.73 >60 (test code = 25056) CALC BUN/CREAT (test 5 RATIO 6-28 L code = 2235) SODIUM (test code = 140 MEQ/L 589-167 5913) POTASSIUM (test code 4.3 MEQ/L 3.5-5.4 = 2228) CHLORIDE (test code 105 MEQ/L 95-107 = 2215) CARBON DIOXIDE (test 24 MEQ/L 19-31 code = 2206) CALCIUM (test code = 9.5 MG/DL 8.5-10.5 [...] 135 U/L 40-112 H (test code = 4) AST (test code = 55 U/L 9-40 H 2217) ALT (test code = 46 U/L 5-40 H 2218) CBC W/AUTO DIFF WITH [id number] 03:09:14 Test Item Value Reference Range Interpretation [...] RBCS 0.00 K/UL 0.00-0.11 (test code = 31062) LIPID [id number] 00:00:00 Test Item Value Reference Range Interpretation Comments CHOLESTEROL (test code = 2210) 228 MG/DL TRIGLYCERIDES (test code = 2232) 164 MG/DL HDL CHOLESTEROL (test code = 2220) 39 MG/DL CALC LDL CHOL (test code = 2237) 159 MG/DL RISK RATIO LDL/HDL (test code = 4.08 RATIO 2238) HEMOGLOBIN [id number] 00:00:00 Test Item Value Reference Range Interpretation Comments HEMOGLOBIN A1c (test code = 03508) 5.7 % CBC W/AUTO [id number] 00:00:00 Test Item Value Reference Range Interpretation [...] NUCLEATED RBCS (test code = 0.00 K/UL 30396) HEMOGLOBIN [id number] 00:00:00 Test Item Value Reference Range Interpretation Comments HEMOGLOBIN A1c (test code = 30285) 5.7 % CBC W/AUTO [id number] 00:00:00 Test Item Value Reference Range Interpretation [...] NUCLEATED RBCS (test code = 0.00 K/UL 97722) CBC W/AUTO [id number] 00:00:00 Test Item Value Reference Range Interpretation [...] NUCLEATED RBCS (test code = 0.00 K/UL 07100) LIPID [id number] 00:00:00 Test Item Value Reference Range Interpretation Comments CHOLESTEROL (test code = 2210) 228 MG/DL TRIGLYCERIDES (test code = 2232) 164 MG/DL HDL CHOLESTEROL (test code = 2220) 39 MG/DL CALC LDL CHOL (test code = 2237) 159 MG/DL RISK RATIO LDL/HDL (test code = 4.08 RATIO 2238) LIPID [id number] 00:00:00 Test Item Value Reference Range Interpretation Comments CHOLESTEROL (test code = 2210) 228 MG/DL TRIGLYCERIDES (test code = 2232) 164 MG/DL HDL CHOLESTEROL (test code = 2220) 39 MG/DL CALC LDL CHOL (test code = 2237) 159 MG/DL RISK RATIO LDL/HDL (test code = 4.08 RATIO 2238) HEMOGLOBIN [id number] 00:00:00 Test Item Value Reference Range Interpretation Comments HEMOGLOBIN A1c (test code = 86637) 5.7 % HEMOGLOBIN [id number] 00:00:00 Test Item Value Reference Range Interpretation Comments HEMOGLOBIN A1c (test code = 38645) 5.7 % HEMOGLOBIN [id number] 00:00:00 Test Item Value Reference Range Interpretation Comments HEMOGLOBIN A1c (test code = 90051) 5.7 % COMPREHENSIVE METABOLIC [id number] 00:00:00 Test Item Value Reference Range Interpretation Comments GLUCOSE (test code = 2217) 105 MG/DL BUN (test code = 2208) 4 MG/DL CREATININE (test code = 2214) 0.80 MG/DL eGFR (2020 CKD-EPI) (test code 98 ML/MIN/1.73 = 30140) CALC BUN/CREAT (test code = 5 RATIO [...] code = 2219) 46 U/L COMPREHENSIVE METABOLIC [id number] 00:00:00 Test Item Value Reference Range Interpretation Comments GLUCOSE (test code = 2217) 105 MG/DL BUN (test code = 2208) 4 MG/DL CREATININE (test code = 2214) 0.80 MG/DL eGFR (2020 CKD-EPI) (test code 98 ML/MIN/1.73 = 43569) CALC BUN/CREAT (test code = 5 RATIO 2235) SODIUM (test code = 2231) 140 MEQ/L POTASSIUM (test code = 2228) 4.3 MEQ/L CHLORIDE (test code = 2215) 105 MEQ/L CARBON DIOXIDE (test code = 24 MEQ/L 2205) CALCIUM (test code = 2209) 9.5 MG/DL PROTEIN, TOTAL (test code = 7.5 G/DL 2229) ALBUMIN (test code = 2201) 4.3 G/DL CALC GLOBULIN (test code = 3.2 G/DL 2240) CALC A/G RATIO (test code = 1.3 RATIO 2234) BILIRUBIN, TOTAL (test code = 0.3 MG/DL 2206) ALKALINE PHOSPHATASE (test 135 U/L code = 2204) AST (test code = 2218) 55 U/L ALT (test code = 2219) 46 U/L [id number] 00:00:00 Test Item Value Reference Range Interpretation Comments TSH, THIRD GENERATION (test code 2.660 UIU/ML = 2821) COMPREHENSIVE METABOLIC [id number] 00:00:00 Test Item Value Reference Range Interpretation Comments GLUCOSE (test code = 2217) 105 MG/DL BUN (test code = 2208) 4 MG/DL CREATININE (test code = 2214) 0.80 MG/DL eGFR (2020 CKD-EPI) (test code 98 ML/MIN/1.73 = 57002) CALC BUN/CREAT (test code = 5 RATIO [...] ALT (test code = 2219) 46 U/L [id number] 00:00:00 Test Item Value Reference Range Interpretation Comments TSH, THIRD GENERATION (test code 2.660 UIU/ML = 2821) [id number] 00:00:00 Test Item Value Reference Range Interpretation Comments TSH, THIRD GENERATION (test code 2.660 UIU/ML = 2821) [id number] 00:00:00 Test Item Value Reference Range Interpretation Comments TSH, THIRD GENERATION (test code 2.660 UIU/ML = 2821) [id number] 00:00:00 Test Item Value Reference Range Interpretation Comments TSH, THIRD GENERATION (test code 2.660 UIU/ML = 2821) CBC W/AUTO [id number] 00:00:00 Test Item Value Reference Range Interpretation [...] NUCLEATED RBCS (test code = 0.00 K/UL 32938) CBC W/AUTO [id number] 00:00:00 Test Item Value Reference Range Interpretation [...] NUCLEATED RBCS (test code = 0.00 K/UL 08069) CBC W/AUTO [id number] 00:00:00 Test Item Value Reference Range Interpretation [...] NUCLEATED RBCS (test code = 0.00 K/UL 86005) LIPID [id number] 00:00:00 Test Item Value Reference Range Interpretation Comments CHOLESTEROL (test code = 2210) 228 MG/DL TRIGLYCERIDES (test code = 2232) 164 MG/DL HDL CHOLESTEROL (test code = 2220) 39 MG/DL CALC LDL CHOL (test code = 2237) 159 MG/DL RISK RATIO LDL/HDL (test code = 4.08 RATIO 2238) LIPID [id number] 00:00:00 Test Item Value Reference Range Interpretation Comments CHOLESTEROL (test code = 2210) 228 MG/DL TRIGLYCERIDES (test code = 2232) 164 MG/DL HDL CHOLESTEROL (test code = 2220) 39 MG/DL CALC LDL CHOL (test code = 2237) 159 MG/DL RISK RATIO LDL/HDL (test code = 4.08 RATIO 2238) HEMOGLOBIN [id number] 00:00:00 Test Item Value Reference Range Interpretation Comments HEMOGLOBIN A1c (test code = 22064) 5.7 % HEMOGLOBIN [id number] 00:00:00 Test Item Value Reference Range Interpretation Comments HEMOGLOBIN A1c (test code = 13549) 5.7 % HEMOGLOBIN [id number] 00:00:00 Test Item Value Reference Range Interpretation Comments HEMOGLOBIN A1c (test code = 93816) 5.7 % COMPREHENSIVE METABOLIC [id number] 00:00:00 Test Item Value Reference Range Interpretation Comments GLUCOSE (test code = 2217) 105 MG/DL BUN (test code = 2208) 4 MG/DL CREATININE (test code = 2214) 0.80 MG/DL eGFR (2020 CKD-EPI) (test code 98 ML/MIN/1.73 = 66355) CALC BUN/CREAT (test code = 5 RATIO [...] code = 2219) 46 U/L COMPREHENSIVE METABOLIC [id number] 00:00:00 Test Item Value Reference Range Interpretation Comments GLUCOSE (test code = 2217) 105 MG/DL BUN (test code = 2208) 4 MG/DL CREATININE (test code = 2214) 0.80 MG/DL eGFR (2020 CKD-EPI) (test code 98 ML/MIN/1.73 = 89105) CALC BUN/CREAT (test code = 5 RATIO 2235) SODIUM (test code = 2231) 140 MEQ/L POTASSIUM (test code = 2228) 4.3 MEQ/L CHLORIDE (test code = 2215) 105 MEQ/L CARBON DIOXIDE (test code = 24 MEQ/L 6) CALCIUM (test code = 2209) 9.5 MG/DL [...] ALT (test code = 2219) 46 U/L [id number] 00:00:00 Test Item Value Reference Range Interpretation Comments TSH, THIRD GENERATION (test code 2.660 UIU/ML = 2821) [id number] 00:00:00 Test Item Value Reference Range Interpretation Comments TSH, THIRD GENERATION (test code 2.660 UIU/ML = 2821) [id number] 00:00:00 Test Item Value Reference Range Interpretation Comments TSH, THIRD GENERATION (test code 2.660 UIU/ML = 2821) CBC W/AUTO [id number] 00:00:00 Test Item Value Reference Range Interpretation [...] NUCLEATED RBCS (test code = 0.00 K/UL 23517) CBC W/AUTO [id number] 00:00:00 Test Item Value Reference Range Interpretation [...] NUCLEATED RBCS (test code = 0.00 K/UL 16396) LIPID [id number] 00:00:00 Test Item Value Reference Range Interpretation Comments CHOLESTEROL (test code = 2210) 228 MG/DL TRIGLYCERIDES (test code = 2232) 164 MG/DL HDL CHOLESTEROL (test code = 2220) 39 MG/DL CALC LDL CHOL (test code = 2237) 159 MG/DL RISK RATIO LDL/HDL (test code = 4.08 RATIO 2238) HEMOGLOBIN [id number] 00:00:00 Test Item Value Reference Range Interpretation Comments HEMOGLOBIN A1c (test code = 01450) 5.7 % HEMOGLOBIN [id number] 00:00:00 Test Item Value Reference Range Interpretation Comments HEMOGLOBIN A1c (test code = 18894) 5.7 % COMPREHENSIVE METABOLIC [id number] 00:00:00 Test Item Value Reference Range Interpretation Comments GLUCOSE (test code = 2217) 105 MG/DL BUN (test code = 2208) 4 MG/DL CREATININE (test code = 2214) 0.80 MG/DL eGFR (2020 CKD-EPI) (test code 98 ML/MIN/1.73 = 26763) CALC BUN/CREAT (test code = 5 RATIO [...] ALT (test code = 2219) 46 U/L [id number] 00:00:00 Test Item Value Reference Range Interpretation Comments TSH, THIRD GENERATION (test code 2.660 UIU/ML = 2821) [id number] 00:00:00 Test Item Value Reference Range Interpretation Comments TSH, THIRD GENERATION (test code 2.660 UIU/ML = 2821) CBC W/AUTO [id number] 00:00:00 Test Item Value Reference Range Interpretation [...] NUCLEATED RBCS (test code = 0.00 K/UL 63149) CBC W/AUTO [id number] 00:00:00 Test Item Value Reference Range Interpretation [...] NUCLEATED RBCS (test code = 0.00 K/UL 59462) CBC W/AUTO [id number] 00:00:00 Test Item Value Reference Range Interpretation [...] NUCLEATED RBCS (test code = 0.00 K/UL 53556) LIPID [id number] 00:00:00 Test Item Value Reference Range Interpretation Comments CHOLESTEROL (test code = 2210) 228 MG/DL TRIGLYCERIDES (test code = 2232) 164 MG/DL HDL CHOLESTEROL (test code = 2220) 39 MG/DL CALC LDL CHOL (test code = 2237) 159 MG/DL RISK RATIO LDL/HDL (test code = 4.08 RATIO 2238) LIPID [id number] 00:00:00 Test Item Value Reference Range Interpretation Comments CHOLESTEROL (test code = 2210) 228 MG/DL TRIGLYCERIDES (test code = 2232) 164 MG/DL HDL CHOLESTEROL (test code = 2220) 39 MG/DL CALC LDL CHOL (test code = 2237) 159 MG/DL RISK RATIO LDL/HDL (test code = 4.08 RATIO 2238) HEMOGLOBIN [id number] 00:00:00 Test Item Value Reference Range Interpretation Comments HEMOGLOBIN A1c (test code = 22535) 5.7 % CBC W/AUTO [id number] 00:00:00 Test Item Value Reference Range Interpretation [...] NUCLEATED RBCS (test code = 0.00 K/UL 17941) HEMOGLOBIN [id number] 00:00:00 Test Item Value Reference Range Interpretation Comments HEMOGLOBIN A1c (test code = 07884) 5.7 % HEMOGLOBIN [id number] 00:00:00 Test Item Value Reference Range Interpretation Comments HEMOGLOBIN A1c (test code = 81007) 5.7 % COMPREHENSIVE METABOLIC [id number] 00:00:00 Test Item Value Reference Range Interpretation Comments GLUCOSE (test code = 2217) 105 MG/DL BUN (test code = 2208) 4 MG/DL CREATININE (test code = 2214) 0.80 MG/DL eGFR (2020 CKD-EPI) (test code 98 ML/MIN/1.73 = 64308) CALC BUN/CREAT (test code = 5 RATIO [...] code = 2219) 46 U/L COMPREHENSIVE METABOLIC [id number] 00:00:00 Test Item Value Reference Range Interpretation Comments GLUCOSE (test code = 2217) 105 MG/DL BUN (test code = 2208) 4 MG/DL CREATININE (test code = 2214) 0.80 MG/DL eGFR (2020 CKD-EPI) (test code 98 ML/MIN/1.73 = 43638) CALC BUN/CREAT (test code = 5 RATIO [...] ALT (test code = 2219) 46 U/L [id number] 00:00:00 Test Item Value Reference Range Interpretation Comments TSH, THIRD GENERATION (test code 2.660 UIU/ML = 2821) [id number] 00:00:00 Test Item Value Reference Range Interpretation Comments TSH, THIRD GENERATION (test code 2.660 UIU/ML = 2821) [id number] 00:00:00 Test Item Value Reference Range Interpretation Comments TSH, THIRD GENERATION (test code 2.660 UIU/ML = 2821) CBC W/AUTO [id number] 00:00:00 Test Item Value Reference Range Interpretation [...] NUCLEATED RBCS (test code = 0.00 K/UL 71461)"
[2023-02-09] MEDS ORDERED: dexAMETHasone 10 MG/ML VIAL ONE (10:01)
[2023-02-09] MEDS ORDERED: DIPHENHYDRAMINE 50 MG/ML VIAL ONE (10:01)
[2023-02-09] MEDS ORDERED: METOCLOPRAMIDE 10 MG/2mL INJ ONE ×2 (10:01→10:14)
[2023-02-09] MEDS ORDERED: NA CHLORIDE 0.9% 50 ML ONE (10:02)
[2023-02-09] MEDS ORDERED: KETOROLAC 30 MG/ML INJ ONE (10:02)
[2023-02-09] MEDS ORDERED: NA CHLORIDE 0.9% 1,000 ML ONE (10:02)
[2023-02-09 10:25] LABS: Absolute Lymphocytes (CBC) 2.8 K/uL (0.7-4.9); Hematocrit 33.4 % (36.0-45.0); Lymphocytes % 35.3 % (15.3-44.8); MCV 80.9 fL (80-100); MPV 7.6 fL (7.6-11.3); RBC Red Blood Cell Count 4.13 M/uL (3.86-4.86)
--- NOTE | 2023-02-09 12:05 | EDPHYS ---
Physician Documentation [facility] Name: Rosanne Riojas Age: 37 yrs Sex: Female : 1985 Arrival Date: 02/09/2023 Time: 09:04 Bed 4 Private MD: ED Physician Partha Lomas HPI: 02/09 09:36 This 37 yrs old Female presents to ER via Ambulatory with complaints of Headache. [facility] 09:36 This is a 37-year-old female with history of autism, migraines that presents emerged [facility] part with complaints of headache beginning approximately 1 day ago. Patient states this is consistent with previous headaches. Pain is gradual onset. Patient complains of headache, neck pain and shoulder pain. Denies chest pain. Denies fever. Denies vomiting. 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 - Social history:: Smoking status: Patient reports the use of cigarette tobacco products. ROS: 09:36 Constitutional: Negative for fever, chills, and weight loss, Cardiovascular: Negative jm for chest pain, palpitations, and edema, Respiratory: Negative for shortness of breath, cough, wheezing, and pleuritic chest pain. 09:36 Neuro: Positive for headache. 09:36 All other systems are negative. Exam: 09:36 Constitutional: This is a well developed, well nourished patient who is awake, alert, jmm and in no acute distress. Head/Face: atraumatic. Eyes: EOMI, no conjunctival erythema appreciated ENT: Moist Mucus Membranes Neck: Trachea midline, Supple Chest/axilla: Normal chest wall appearance and motion. Cardiovascular: Regular rate and rhythm. No edema appreciated Respiratory: Normal respirations, no respiratory distress appreciated Abdomen/GI: Non distended Back: Normal ROM Skin: General appearance color normal 09:36 Musculoskeletal/extremity: ROM: intact in all extremities. 09:36 Skin: Appearance: Color: normal in color. 09:36 Neuro: Orientation: is normal, Mentation: is normal, Memory: is normal. 09:36 Psych: Behavior/mood is pleasant, cooperative. Vital Signs: 09:21 BP 149 / 99; Pulse 87; Resp 17; Temp 99.6; Pulse Ox 98% ; Weight 88.9 kg; Height 5 ft. jl7 2 in. ; Pain 8/10; 10:10 BP 128 / 82; Pulse 66; Resp 16; Pulse Ox 99% on R/A; db 12:00 BP 121 / 81; Pulse 71; Resp 16; Pulse Ox 100% on R/A; db 09:21 Body Mass Index 35.85 (88.90 kg, 157.48 cm) [facility] 09:21 Pain Scale: Adult [facility] MDM: 09:36 Patient medically screened. [facility] 09:36 Differential diagnosis: Migraine, subarachnoid hemorrhage, meningitis, tension jmm headache. Data reviewed: vital signs, nurses notes. 10:40 ED course: Patient is alert nontoxic in appearance in the ED. States feeling much jmm better. I do not currently suspect subarachnoid hemorrhage, meningitis. Patient is afebrile, no meningismus.. 10:40 Counseling: I had a detailed discussion with the patient and/or guardian regarding: the [facility] historical points, exam findings, and any diagnostic results supporting the discharge/admit diagnosis, lab results, to return to the emergency department if symptoms worsen or persist or if there are any questions or concerns that arise at home. Response to treatment: the patient's symptoms have markedly improved after treatment, and as a result, I will discharge patient. 02/09 09:44 Order name: CBC with Diff; Complete Time: 10:40 [facility] 02/09 09:44 Order name: BMP; Complete Time: 10:40 [facility] 02/09 09:40 Order name: Saline Lock; Complete Time: 10:27 [facility] Administered Medications: 10:00 Drug: NS 0.9% IV 1000 ml Route: IV; Rate: 1 bolus; Site: left antecubital; db 12:30 Follow up: Response: No adverse reaction; IV Status: Completed infusion; IV Intake: db 1000ml 10:02 Drug: diphenhydrAMINE IVP 12.5 mg Route: IVP; Site: left antecubital; db 12:31 Follow up: Response: No adverse reaction db 10:05 Drug: metoCLOPramide IVP 20 mg Route: IVP; Site: left antecubital; db 12:31 Follow up: Response: No adverse reaction db 10:05 Drug: Ketorolac IVP 30 mg Route: IVP; Site: left antecubital; db 12:31 Follow up: Response: No adverse reaction db 10:08 Drug: Decadron - Dexamethasone IVP 10 mg Route: IVP; Site: left antecubital; db 12:31 Follow up: Response: No adverse reaction db Disposition: 16:43 Co-signature as Attending Physician, Partha CODY was immediately available on-site ms3 in the Emergency Department for consultation in the care of the patient. Disposition Summary: 02/09/23 12:04 Discharge Ordered Location: Home [facility] Condition: Stable [facility] Diagnosis - Migraine Headache [facility] Followup: [facility] - With: Phillip Montalvo MD - When: 2 - 3 days - Reason: Recheck today's complaints, Continuance of care, Re-evaluation by your physician Discharge Instructions: - Discharge Summary Sheet [facility] - Migraine Headache [facility] Forms: - Medication Reconciliation Form [facility] - Thank You Letter [facility] - Antibiotic Education [facility] - Prescription Opioid Use [facility] - [email or web address] [facility] Signatures: Dispatcher [employer] Rao Auguste PA PA jmm Leal, Jahala RN RN Partha Sutherland DO DO ms3 Elayne Flower, JUAN RN db Corrections: (The following items were deleted from the chart) 09:26 09:23 PSHx: section; cheryl jlLouann
--- NOTE | 2023-02-09 12:05 | ER ---
Nurse's Notes [facility] Name: Rosanne Riojas Age: 37 yrs Sex: Female : 1985 Arrival Date: 02/09/2023 Time: 09: Bed 4 Private MD: Diagnosis: Migraine Headache Presentation: 02/09 09:21 Chief complaint: Patient states: Migraine since yesterday, hx of migraines. Coronavirus jl7 screen: At this time, the client does not indicate any symptoms associated with coronavirus-19. Ebola Screen: No symptoms or risks identified at this time. Initial Sepsis Screen: Does the patient meet any 2 criteria? No. Patient's initial sepsis screen is negative. Does the patient have a suspected source of infection? No. Patient's initial sepsis screen is negative. Risk Assessment: Do you want to hurt yourself or someone else? Patient reports no desire to harm self or others. Onset of symptoms was February 08, 2023. 09:21 Method Of Arrival: Ambulatory [facility] 09:21 Acuity: ILA 3 jl7 Triage Assessment: 09:23 Headache History: The patient has had previous headaches and this one is more severe jl7 than previous episodes. General: Appears in no apparent distress. uncomfortable, Behavior is calm, cooperative, appropriate for age. Pain: Complains of pain in head Pain radiates to back of neck Pain currently is 8 out of 10 on a pain scale. Pain began 1 day ago. Also complains of photophobia. Neuro: Level of Consciousness is awake, alert, obeys commands, Oriented to person, place, time, situation, Moves all extremities. Full function Gait is steady. 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 - Social history:: Smoking status: Patient reports the use of cigarette tobacco products. Screenin:29 [facility] ED Fall Risk Assessment (Adult) History of falling in the last 3 months, db including since admission No falls in past 3 months (0 pts) Confusion or Disorientation No (0 pts) Intoxicated or Sedated No (0 pts) Impaired Gait No (0 pts) Mobility Assist Device Used No (0 pt) Altered Elimination No (0 pt) Score/Fall Risk Level 0 - 2 = Low Risk Oriented to surroundings, Maintained a safe environment. Abuse screen: Denies threats or abuse. Denies injuries from another. Nutritional screening: No deficits noted. Tuberculosis screening: No symptoms or risk factors identified. Assessment: 09:50 Reassessment: Patient appears in no apparent distress at this time. Patient and/or db family updated on plan of care and expected duration. Pain level reassessed. Patient is alert, oriented x 3, equal unlabored respirations, skin warm/dry/pink. General: Appears in no apparent distress. comfortable, Behavior is calm, cooperative. Pain: Complains of pain in head. Neuro: Level of Consciousness is awake, alert, obeys commands, Oriented to person, place, time, situation, Speech is normal. Respiratory: Airway is patent Respiratory effort is even, unlabored, Respiratory pattern is regular, agonal. 11:30 Reassessment: Patient appears in no apparent distress at this time. Patient and/or db family updated on plan of care and expected duration. Pain level reassessed. Patient is alert, oriented x 3, equal unlabored respirations, skin warm/dry/pink. 12:29 Reassessment: Patient appears in no apparent distress at this time. Patient and/or db family updated on plan of care and expected duration. Pain level reassessed. Patient is alert, oriented x 3, equal unlabored respirations, skin warm/dry/pink. Patient states feeling better. Patient states symptoms have improved. Vital Signs: 09:21 BP 149 / 99; Pulse 87; Resp 17; Temp 99.6; Pulse Ox 98% ; Weight 88.9 kg; Height 5 ft. jl7 2 in. ; Pain 8/10; 10:10 BP 128 / 82; Pulse 66; Resp 16; Pulse Ox 99% on R/A; db 12:00 BP 121 / 81; Pulse 71; Resp 16; Pulse Ox 100% on R/A; db 09:21 Body Mass Index 35.85 (88.90 kg, 157.48 cm) 7 09:21 Pain Scale: Adult [facility] ED Course: 09:06 Patient arrived in ED. mr 09:18 Rao Henao PA is PHCP. jmm 09:18 Partha Lomas DO is Attending Physician. m 09:23 Triage completed. jl7 09:23 Arm band placed on right wrist. jl7 09:41 Elayne Flower, JUAN is Primary Nurse. db 10:00 Inserted saline lock: 20 gauge in left antecubital area, using aseptic technique. db 10:30 Patient has correct armband on for positive identification. Bed in low position. Call db light in reach. Side rails up X 1. Pulse ox on. NIBP on. Warm blanket given. 12:03 Phillip Montalvo MD is Referral Physician. [facility] 12:29 No provider procedures requiring assistance completed. IV discontinued, intact, db bleeding controlled, No redness/swelling at site. Administered Medications: 10:00 Drug: NS 0.9% IV 1000 ml Route: IV; Rate: 1 bolus; Site: left antecubital; db 12:30 Follow up: Response: No adverse reaction; IV Status: Completed infusion; IV Intake: db 1000ml 10:02 Drug: diphenhydrAMINE IVP 12.5 mg Route: IVP; Site: left antecubital; db 12:31 Follow up: Response: No adverse reaction db 10:05 Drug: metoCLOPramide IVP 20 mg Route: IVP; Site: left antecubital; db 12:31 Follow up: Response: No adverse reaction db 10:05 Drug: Ketorolac IVP 30 mg Route: IVP; Site: left antecubital; db 12:31 Follow up: Response: No adverse reaction db 10:08 Drug: Decadron - Dexamethasone IVP 10 mg Route: IVP; Site: left antecubital; db 12:31 Follow up: Response: No adverse reaction db Medication: 09:50 VIS not applicable for this client. db Intake: 12:30 IV: 1000ml; Total: 1000ml. db Outcome: 12:04 Discharge ordered by MD. jmm 12:29 Discharged to home ambulatory. db 12:29 Condition: stable 12:29 Discharge instructions given to patient, Instructed on discharge instructions, follow up and referral plans. 12:31 Patient left the ED. db Signatures: Rao Henao PA PA jmm Rivera, Mary mr ParrishLyn, RN RN Elayne Hightower RN RN elida Corrections: (The following items were deleted from the chart) 09: 09:23 PSHx: section; cheryl luna
[2023-02-09 12:40] VITALS: TEMP 99.6
[2023-02-09 12:59] VITALS: BP 121/81; O2SAT 100
== END 2023-02-09 12:31 | disposition home or self-care (01) ==
LOC: ER 09:04
DX: G43.909 Migraine, unspecified, not intractable, without status migrainosus (principal)
CPT/HCPCS: 36415; 80048; 85025; 96361; 96374; 96375; 99284; J1100; J1200; J2765; J7030